=== PATIENT | male | born 1965 | race Caucasian/White ===

== ENCOUNTER → 2019-09-09 10:08 | Outpatient (CLI) | payer OTHER, SELFPAY ==
--- NOTE | 2019-09-09 10:13 | RAD_ITS ---
STUDY: X-RAY - RIGHT KNEE REASON FOR EXAM: Male, 54 years old. Pain, right more than left TECHNIQUE: 4 view(s) of the knee. COMPARISON: None. FINDINGS: Normal visualized distal femur. Normal visualized proximal tibia and fibula. Normal proximal tibiofibular articulation. Normal medial femorotibial compartment. Normal lateral femorotibial compartment. Normal patellofemoral articulation. The soft tissue structures are unremarkable. RAD/Knee 4 or More Views IMPRESSION: Normal x-ray examination of the knee. Electronically Signed: Ari Blackman MD at 10:35 EDT , Service support ,
--- NOTE | 2019-09-09 10:13 | RAD_ITS ---
STUDY: X-RAY - LEFT KNEE REASON FOR EXAM: Male, 54 years old. Pain, right more than left TECHNIQUE: 4 view(s) of the knee. COMPARISON: None. FINDINGS: Normal visualized distal femur. Normal visualized proximal tibia and fibula. Normal proximal tibiofibular articulation. Normal medial femorotibial compartment. Normal lateral femorotibial compartment. Normal patellofemoral articulation. The soft tissue structures are unremarkable. RAD/Knee 4 or More Views IMPRESSION: Normal x-ray examination of the knee. Electronically Signed: Ari Blackman MD at 10:31 EDT , Service support ,
== END ==
PROVIDERS: PCP Family Medicine; Referring Provider Family Medicine; Visit Provider Family Medicine
DX: M25.562 Pain in left knee (principal); M25.561 Pain in right knee
CPT/HCPCS: 73564

== ENCOUNTER → 2019-09-17 07:48 | Outpatient (CLI) | payer OTHER, SELFPAY ==
--- NOTE | 2019-09-17 07:50 | US_ITS ---
STUDY: THYROID ULTRASOUND REASON FOR EXAM: Male, 54 years old. Palpable nodule. TECHNIQUE: Ultrasound evaluation of the thyroid was performed with real-time and static cruz-scale imaging. COMPARISON: None. FINDINGS: RIGHT LOBE: The right lobe of the thyroid gland measures 4.7 x 1.8 x 2.1 cm. There is a homogeneous echotexture. There are no demonstrated solid, cystic or complex lesions. Normal vascularity on Doppler imaging. LEFT LOBE: The left lobe of the thyroid gland measures 4.7 x 2.1 x 2.1 cm. There is a homogeneous echotexture. There are no demonstrated solid, cystic or complex lesions. Normal vascularity on Doppler imaging. ISTHMUS: The isthmus measures 04 cm. The regional lymph nodes are normal. US/Thyroid IMPRESSION: Normal ultrasound examination of the thyroid. Electronically Signed: Luis Barakat DO at 16:55 EDT Tel [phone], Service support ,
== END ==
PROVIDERS: PCP Family Medicine; Referring Provider Family Medicine; Visit Provider Family Medicine
DX: E04.1 Nontoxic single thyroid nodule (principal)
CPT/HCPCS: 76536

== ENCOUNTER → 2019-11-17 10:51 | Outpatient (CLI) | payer OTHER, SELFPAY ==
[2019-11-17 10:40] VITALS: BMI 32.8
--- NOTE | 2019-11-17 11:07 | RAD_ITS ---
STUDY: X-RAY - RIGHT KNEE REASON FOR EXAM: Male, 54 years old. PAIN TECHNIQUE: 4 view(s) of the knee. COMPARISON: 09/09/2019 FINDINGS: Normal visualized distal femur. Normal visualized proximal tibia and fibula. Normal proximal tibiofibular articulation. Normal medial femorotibial compartment. Normal lateral femorotibial compartment. Normal patellofemoral articulation. The soft tissue structures are unremarkable. RAD/Knee 4 or More Views IMPRESSION: Normal x-ray examination of the knee. Electronically Signed: Jayson Marquez DO at 21:29 EDT Tel [phone], Service support ,
== END ==
PROVIDERS: PCP Family Medicine; Referring Provider Orthopaedic Surgery; Visit Provider Orthopaedic Surgery
DX: M25.561 Pain in right knee (principal)
CPT/HCPCS: 73564

== ENCOUNTER → 2020-07-26 12:11 | Outpatient (CLI) | payer OTHER, SELFPAY ==
[2020-07-26 11:01] VITALS: BMI 29.2
[2020-07-26 13:01] LABS: Hematocrit 43.6 % (40-54); Hemoglobin 14.1 g/dL (13.0-16.5); Mean Corp Hgb Conc 32.3 g/dL (32-36); Mean Corpuscular Hgb 29.7 pg (27.0-32.0); Mean Platelet Vol. 10.8 fl (6.2-12.0); Platelet Count 267 K/mm3 (150-450); Red Blood Count 4.74 M/mm3 (4.6-6.2); White Blood Count 4.5 K/mm3 (4.4-11.0)
[2020-07-26 14:29] LABS: ALB/GLOB Ratio 1.2 RATIO (0.9-2.4); AST(SGOT) 14 U/L (15-37); Alanine Aminotransfer ALT/SGPT 26 U/L (16-61); Albumin, Serum 4.2 g/dL (3.2-5.0); Alkaline Phosphatase 47 U/L (45-117); Anion Gap 7 (5-15); BUN 17 mg/dL (7-18); BUN/Creat Ratio 18.7 RATIO (10-20); Calcium,Total 9.3 mg/dL (8.5-10.1); Chloride 103 mmol/L (98-107); Creatinine, Serum 0.91 mg/dL (0.70-1.30); EST Glomerular Filtration Rate 92 mL/min (>60); Est Glom Filt Rate - Afr Amer 111 mL/min (>60); Globulin 3.6 g/dL (2.2-4.2); Glucose 82 mg/dL (74-106); Potassium 3.8 mmol/L (3.5-5.1); Protein, Total 7.8 g/dL (6.4-8.2); Sodium Level 137 mmol/L (136-145); Thyroid Stim Hormone (TSH) 1.28 uIU/mL (0.358-3.74)
== END ==
PROVIDERS: PCP Family Medicine; Referring Provider Psychiatry & Neurology Neurology; Visit Provider Psychiatry & Neurology Neurology
DX: G43.909 Migraine, unspecified, not intractable, without status migrainosus (principal)
CPT/HCPCS: 36415; 80053; 84443; 85027

== ENCOUNTER 2021-06-28 11:56 | Outpatient (CLI) | payer OTHER, SELFPAY ==
[2021-06-28 16:01] LABS: ALB/GLOB Ratio 1.3 RATIO (0.9-2.4); AST(SGOT) 22 U/L (15-37); Alanine Aminotransfer ALT/SGPT 40 U/L (16-61); Alkaline Phosphatase 48 U/L (45-117); Anion Gap 6 (5-15); BUN 19 mg/dL (7-18); BUN/Creat Ratio 22.2 RATIO (10-20); Chloride 102 mmol/L (98-107); Creatinine, Serum 0.85 mg/dL (0.70-1.30); EST Glomerular Filtration Rate 98 mL/min (>60); Est Glom Filt Rate - Afr Amer 119 mL/min (>60); Globulin 3.1 g/dL (2.2-4.2); Glucose 94 mg/dL (74-106); Potassium 4.2 mmol/L (3.5-5.1); Protein, Total 7.1 g/dL (6.4-8.2); Sodium Level 135 mmol/L (136-145)
== END 2021-06-28 23:59 | disposition home or self-care (01) ==
LOC: MFPLAB 11:59
PROVIDERS: PCP Family Medicine; Referring Provider Family Medicine; Visit Provider Family Medicine
DX: L29.9 Pruritus, unspecified (principal)
CPT/HCPCS: 36415; 80053

== ENCOUNTER → 2021-09-02 | Outpatient (CLI) | payer OTHER, SELFPAY ==
[2021-09-02 12:01] LABS: Absolute Lymphocyte Count 1.41 X10^3/uL (0.83-4.51); Absolute Neutrophil Count 1.9 X10^3/uL (2.0-7.7); Basophil# 0.02 X10^3/uL; Basophil% 0.5 % (0-1); Eosinophil# 0.29 X10^3/uL; Eosinophils% 7.1 % (0-5); Hematocrit 44.5 % (40-54); Hemoglobin 14.9 g/dL (13.0-16.5); Lymphocyte # 1.41 X10^3/ul (0.83-4.51); Lymphocyte % 34.7 % (19-41); Mean Corp Hgb Conc 33.5 g/dL (32-36); Mean Corpuscular Hgb 29.6 pg (27.0-32.0); Mean Corpuscular Volume 88.5 fL (80-94); Mean Platelet Vol. 10.7 fl (6.2-12.0); Monocyte# 0.43 X10^3/uL; Monocyte% 10.6 % (0-10); NRBC Flagged by Analyzer 0 % (0-5); Neutrophil % 46.9 % (47-70); Platelet Count 258 K/mm3 (150-450); RBC Distribution Width CV 12.9 % (11.6-14.6); Red Blood Count 5.03 M/mm3 (4.6-6.2); White Blood Count 4.1 K/mm3 (4.4-11.0)
[2021-09-02 12:47] LABS: ALB/GLOB Ratio 1.1 RATIO (0.9-2.4); AST(SGOT) 21 U/L (15-37); Alanine Aminotransfer ALT/SGPT 34 U/L (16-61); Albumin, Serum 3.9 g/dL (3.2-5.0); Alkaline Phosphatase 51 U/L (45-117); Anion Gap 5 (5-15); BUN 15 mg/dL (7-18); BUN/Creat Ratio 15.6 RATIO (10-20); Calcium,Total 8.7 mg/dL (8.5-10.1); Chloride 107 mmol/L (98-107); Cholesterol 226 mg/dL (200); Creatinine, Serum 0.96 mg/dL (0.70-1.30); EST Glomerular Filtration Rate 85 mL/min (>60); Est Glom Filt Rate - Afr Amer 103 mL/min (>60); Globulin 3.6 g/dL (2.2-4.2); Glucose 96 mg/dL (74-106); High Density Lipoprotein 44 mg/dL; PSA,Total - Annual Screen 0.48 ng/mL (0.00-4.00); Potassium 3.9 mmol/L (3.5-5.1); Protein, Total 7.5 g/dL (6.4-8.2); Sodium Level 139 mmol/L (136-145); Thyroid Stim Hormone (TSH) 1.27 uIU/mL (0.358-3.74); Triglycerides 134 mg/dL; Very Low Density Lipoprotein 27 mg/dL (5-40)
== END | disposition home or self-care (01) ==
LOC: MFPLAB 11:04
PROVIDERS: PCP Family Medicine; Referring Provider Family Medicine; Visit Provider Family Medicine
DX: Z00.00 Encounter for general adult medical examination without abnormal findings (principal); Z12.5 Encounter for screening for malignant neoplasm of prostate
CPT/HCPCS: 36415; 80053; 80061; 84153; 84443; 85025; G0103

== ENCOUNTER → 2021-09-16 | Outpatient (CLI) | payer OTHER, SELFPAY ==
--- NOTE | 2021-09-16 10:29 | RAD_ITS ---
EXAM: XR CERVICAL SPINE, 4 OR 5 VIEWS CLINICAL INDICATION: NECK PAIN TECHNIQUE: Frontal, lateral and bilateral oblique views of the cervical spine. This report was created using G3 report generation technology. COMPARISON: None. FINDINGS: VERTEBRAE: Unremarkable. Preserved vertebral body height. No acute fracture. No spondylolisthesis. Preservation of the normal cervical lordosis. No significant facet arthropathy. DISC SPACES: Anterior fusion plate at C6-7. Fusion cage at C6-7. SOFT TISSUES: Unremarkable. No prevertebral soft tissue widening. LUNG APICES: Clear. RAD/Cerv Spine 4 or 5 Views IMPRESSION: No acute findings in the cervical spine. Electronically Signed: Jt Dorsey MD at 14:13 EDT ,
== END | disposition home or self-care (01) ==
LOC: MTRAD 10:27
PROVIDERS: PCP Family Medicine; Referring Provider Family Medicine; Visit Provider Family Medicine
DX: M54.2 Cervicalgia (principal)
CPT/HCPCS: 72050

== ENCOUNTER 2022-06-14 12:30 | Outpatient (RCR) | payer OTHER, SELFPAY ==
--- NOTE | 2022-05-18 11:08 | HP.PTEVAL_ITS ---
Patient's Visit Information JAIDEN CHATTERJEE is a 57 year old M referred to Physical Therapy by AN EMMA with a diagnosis of RAYMUNDO. Date of Evaluation: 05/18/22 Physical Therapist: Alfonso Azar, DANNYT, OCS, CSCS - Visit Plan Frequency: 2x /Week Duration: 2-4 Weeks Plan: 2x/week for 4 weeks for. 1. STM gently to R subocc area, stretching of UT and scalenes and lev scap, MH. 2. c/s retraction , extension and rotation ROM and c12 mobs. 3. strenthening of posture and neck muscles to HEP - Subjective Neurologist sent over here. Had RAYMUNDO since 2013. H/O 2 neck surgeries and ear surgeries. Fused [id number]. This was due to RAYMUNDO, not neck pain. brain surgery for cyst and shunt in 2000. RAYMUNDO went away before 2014 thought. has tried meds and botox for RAYMUNDO. Had MRI, MRA and other tests. Sent to [facility] to check shunt and was leaking spinal fluid, adjusted and sent to this neurologist. Found out neck was tight. Wanted therapy. Has seen chiropractic in past and had neck cracked which hurt. Had PT in the past. Doctor wants to loosen up neck and try to manage RAYMUNDO. Will have injections this week also. Neck feels tight but no painful, maybe tender center R in neck. RAYMUNDO are L occipital throbbing started in 2013 and nobody has been able to tell him why. RAYMUNDO is always low level there but worse for no apparent reason, sometimes in morning. Gets dizzy if stands or sits up too quick. Sometimes when he rolls over he gets dizzy. Bending can cause it quickly. Sleep is OK melatonin. Not employed, not due to this RAYMUNDO. Spends day remodelling parts of the house. House projects and 6 acres, none of that makes him worse. Sitting down feels the throbbing more. Does alot of stretching ex and some cardio on treadclimber and rowing machine. LE stretches. - Pain RAYMUNDO Pain Intensity (Out of 10): 1 Pain Intensity Range: 1, 7 - Objective Walks I and safe easily into and out of PT. Trasnfers no UE I. Good balance. cervical AROM ext 35 degrees, flexion tightness on R, retraction mod limited, SB are full but R side feels tights with stretching, rotation are 50 B without pain or tightness. Just slight tenderness R side under ext occipital protuberance, shunt palpable, not tender. UE aROM WFL, scapular, elbow, shoulder and wrist aROM symmetrical and fucntional. reflexes UE bi and tri 2/3 B. Sensation WNL to gross light touch in UE. Strength UE symmetircal and funcitonal in all UE testing without pain. - c/s compression test. tightness in lev scap and UT R >L, scalenes minimally. - Balance/Special Test Scores Oswestry Neck Score: 5 - Goals Goal 1:: No tightness felt in neck with SB or flexion Goal Time Frame: 2-4 Weeks Goal 2:: RAYMUNDO improved to 3/10 at worst and intermittent Goal Time Frame: 2-4 Weeks Goal 3:: patient I in management of condition with home neck stretches and strengtheniing Goal Time Frame: 2-4 Weeks - Rehabilitation Potential Physical Therapy Diagnosis: some mild tightness in neck questionable whether contributing to RAYMUNDO Rehabilitation Potential: Questionable - Anticipated Interventions Patient/Client Instruction: Educate patient on: Condition, Plan of Care For the Purpose of:: To decrease pain, To increase ROM, To improve muscle performance and motor function Therapeutic Exercise to Include: Strength training, Flexibilty training, Passive ROM, Active ROM, Scapular Strength/Stabilization For the Purpose of:: To decrease pain, To increase ROM, To improve nutrient delivery to tissue, To improve muscle performance and motor function Manual Therapy Techniques to Include: Soft tissue mobilization For the Purpose of:: To improve nutrient delivery to tissue Thermo therapy (hot pack): Yes For the Purpose of:: To improve nutrient delivery to tissue Thank you for the opportunity to evaluate your patient. For Medicare and Medicare HMO plans, please review the plan of care and approve it. It will need to be FAXED BACK to us at [phone] for Medicare purposes. For Medicare only, by signing this I certify the plan of care. Please let me know if there are questions or concerns regarding this plan of care. Physician Signature: Date:
--- NOTE | 2022-06-14 13:10 | HP.PTDCSUM ---
It has been my pleasure to treat JAIDEN CHATTERJEE referred by JOSIANE CARTER, with the diagnosis of RAYMUNDO for a total of 5 visit(s). Discharge Date: 06/14/22 Please see the following information for a summary of their discharge status. Subjective: No more knot in L UT. Stiffness in neck is better, minor tenderness where knot used to be. RAYMUNDO no change. Started ingality injedctions yesterday and a month ago, they really help. Activities are normal. Does stretching and strengthening at home regularly. RAYMUNDO Pain Intensity (Out of 10): 0 % Improvement: 100 Objective/Function: 60 B rotations with contralateral stretch, SB symmetrical and slight stretch contralateral. 40 ext without problems. Feeling good and ready to be done. Goal 1:: No tightness felt in neck with SB or flexion Goal Progress: Progressing Goal 2:: RAYMUNDO improved to 3/10 at worst and intermittent Goal Progress: Not Progressing Goal 3:: patient I in management of condition with home neck stretches and strengtheniing Goal Progress: Goal Met Plan: d/c Discharge Comments: Pt feeling better and will continue with HEP. If there are questions or concerns regarding this patient's physical therapy, please feel free to call me at [phone]. Thank you for the referral of this patient. Sincerely, Alfonso Azar, DPT, OCS, CSCS Balance/Gait/Functional tests - Balance/Special Test Scores Oswestry Neck Score: 6
== END 2022-06-14 19:00 | disposition home or self-care (01) ==
LOC: PT 12:30
PROVIDERS: PCP Family Medicine
DX: G43.719 Chronic migraine without aura, intractable, without status migrainosus (principal); M53.0 Cervicocranial syndrome
CPT/HCPCS: 97110; 97140; 97161

== ENCOUNTER → 2022-11-10 | Outpatient (CLI) | payer OTHER, SELFPAY ==
[2022-11-10 12:06] LABS: Bacteria 0 SEEN /hpf (None Seen); Mucous, Urine 0 SEEN /hpf (<or=2+); Red Blood Cells-Urine 0 SEEN /hpf (0-5); Squamous Epithelial Cells - UA 0 SEEN /hpf (0-5); White Blood Cells 0 SEEN /hpf (0-5)
[2022-11-10 15:19] LABS: Absolute Neutrophil Count 2.1 X10^3/uL (2.0-7.7); Basophil# 0.02 X10^3/uL; Basophil% 0.4 % (0-1); Eosinophils% 8.7 % (0-5); Hematocrit 46.2 % (40-54); Lymphocyte % 34.9 % (19-41); Mean Corp Hgb Conc 32.5 g/dL (32-36); Mean Corpuscular Hgb 29.5 pg (27.0-32.0); Mean Corpuscular Volume 90.8 fL (80-94); Mean Platelet Vol. 11.1 fl (6.2-12.0); Monocyte# 0.48 X10^3/uL; Monocyte% 10.5 % (0-10); NRBC Flagged by Analyzer 0 % (0-5); Neutrophil # 2.08 X10^3/uL (2.7-7.7); Neutrophil % 45.3 % (47-70); Platelet Count 220 K/mm3 (150-450); RBC Distribution Width CV 12.8 % (11.6-14.6); RBC Distribution Width SD 41.9 fl (35.1-43.9); Red Blood Count 5.09 M/mm3 (4.6-6.2); White Blood Count 4.6 K/mm3 (4.4-11.0)
[2022-11-10 15:21] LABS: Color, Urine Yellow (Yellow); Glucose, Dipstick Normal (Normal); Ketone-Dipstick Negative (Negative); Leukocyte Esterase-Dipstick Negative /ul (Negative); Nitrite-Dipstick Negative (Negative); Occult Blood-Urine 10 /ul (Negative); Protein-Dipstick Negative (Negative); Urine Bilirubin Dipstick Negative (Negative); Urine Clarity Clear (Clear); Urine Urobilinogen Normal (Normal)
[2022-11-10 15:57] LABS: AST(SGOT) 17 U/L (15-37); Alanine Aminotransfer ALT/SGPT 32 U/L (16-61); Albumin, Serum 3.8 g/dL (3.2-5.0); Alkaline Phosphatase 46 U/L (45-117); Anion Gap 5 (5-15); BUN 19 mg/dL (7-18); Calcium,Total 8.6 mg/dL (8.5-10.1); Chloride 105 mmol/L (98-107); Cholesterol 221 mg/dL (200); Creatinine, Serum 0.95 mg/dL (0.70-1.30); EST Glomerular Filtration Rate 86 mL/min (>60); Est Glom Filt Rate - Afr Amer 104 mL/min (>60); Globulin 3.7 g/dL (2.2-4.2); Glucose 87 mg/dL (74-106); High Density Lipoprotein 50 mg/dL; PSA,Total - Annual Screen 0.49 ng/mL (0.00-4.00); Potassium 4.4 mmol/L (3.5-5.1); Protein, Total 7.5 g/dL (6.4-8.2); Sodium Level 136 mmol/L (136-145); Thyroid Stim Hormone (TSH) 1.43 uIU/mL (0.358-3.74); Triglycerides 115 mg/dL; Very Low Density Lipoprotein 23 mg/dL (5-40)
== END | disposition home or self-care (01) ==
LOC: MFPLAB 12:05
PROVIDERS: PCP Family Medicine; Visit Provider Family Medicine
DX: Z00.00 Encounter for general adult medical examination without abnormal findings (principal); Z12.5 Encounter for screening for malignant neoplasm of prostate
CPT/HCPCS: 36415; 80053; 80061; 81001; 84153; 84443; 85025; G0103

== ENCOUNTER → 2022-12-15 | Outpatient (CLI) | payer OTHER, SELFPAY ==
--- NOTE | 2022-12-15 14:40 | RAD_ITS ---
INDICATION: HIP PAIN EXAMINATION/TECHNIQUE: X-RAY - XR Hips Bilateral with Pelvis when performed; 5 Views COMPARISON: FINDINGS: PELVIC BONES: No displaced fracture, destructive or sclerotic lesions. Note that overlapping bowel shadows may however obscure fine detail. Sacroiliac joints are unremarkable. No widening of the pubic symphysis. HIPS: The articular structures are unremarkable. No displaced fracture seen in this frontal view. SOFT TISSUES: No soft tissue swelling or gas. RAD/Hips B/L min 2 views w/ Pelvis IMPRESSION: No evidence of displaced pelvic or hip fracture. Electronically Signed: Jayson Marquez DO at 20:53 EDT Reading Location ID and State: [facility] / [place] Tel [phone], Service support ,
== END | disposition home or self-care (01) ==
LOC: MTRAD 14:37
PROVIDERS: PCP Family Medicine; Referring Provider Family Medicine; Visit Provider Family Medicine
DX: M25.559 Pain in unspecified hip (principal)
CPT/HCPCS: 73521

== ENCOUNTER 2023-01-02 07:42 | Day surgery (SDC) | payer OTHER, SELFPAY ==
[2023-01-02] VITALS (7 sets, daily range): BP systolic 108–124; BP diastolic 66–78; PULSE 54–61; RESP 16–18; TEMP 36.1–36.6; O2SAT 95–99; BMI 30.3
[2023-01-02] MEDS: Lactated Ringers 1,000 ML 15 ML IV (08:19)
--- NOTE | 2023-01-02 08:44 | HP.PCM_ITS ---
HPI - General HPI Narrative JAIDEN CHATTERJEE, is a 57 M who presents for screening colonoscopy. The patient's last colonoscopy was 5 years ago and it was normal. The patient has a family history of colon cancer in his father in his 50s. Patient also has a family history of colon polyps in his brother. He denies any abdominal pain or blood in his stool. [facility] Medical History (Updated 01/02/23 @ 08:[address] Maciej Zhang MD) Cyst on brain shunt cyst on ear Family hx of colon cancer Former smoker h/o reattachment finger h/o right knee meniscus surgery Home Medications melatonin 3 mg capsule 3 mg PO HS PRN sleep 07/21/20 [History Last Taken Unknown] atogepant 30 mg tablet (Qulipta) 30 mg PO DAILY 11/23/22 [History Last Taken Unknown] magnesium oxide 400 mg (241.3 mg magnesium) tablet 400 mg PO DAILY 11/23/22 [History Last Taken Unknown] mecobalamin (vitamin B12) 1,000 mcg chewable tablet 1,000 mcg PO DAILY 11/23/22 [History Last Taken Unknown] Allergy/AdvReac Type Severity Reaction Status Date / Time Latex, Natural Rubber Allergy Burning Verified 01/02/23 08:10 Sensation Family History (Updated 11/23/22 @ 16:31 by Hilda Marrero) Father Colon cancer, Onset Age: 50 at 50 Mother Hypertension Brother Colon polyp Surgical History (Updated 12/27/22 @ 14:07 by Dayna Sosa) H/O removal of neck cyst History of back surgery History of brain surgery History of neck surgery Hx of colonoscopy 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 Social History household members: spouse Smoking Status: Former smoker Tobacco: How many years used: 25 Electronic Cigarette Use: not used how long ago did patient quit smokin years second hand exposure: No alcohol intake: never substance use type: does not use what type of physical activity do you participate in: none do you feel safe at home: Yes Past Medical/Surgical History Planned Operation Planned Operative Procedure/s: CSCOPE Previous Hospitalizations/Surgeries HX Hospitalizations: No Any Problems With Anesthesia: No You/Your Family Experience Fever (Hyperthermia) With Anes: No Cholinesterase deficiency: No Cardiovascular Hx Hypertension: No Respiratory Hx Sleep Apnea: No Hx Respiratory Tract Infection/Cold (presently): No Do You Snore Loudly (louder than talking or can be heard): No Do You Often Feel Tired/ Fatigued/ Sleepy Dring Daytime?: No Has Anyone Observed You Stop Breathing During Sleep?: No Result (for STOP score): Negative Smoking Status: Former smoker Neurological Does patient have nerve stimulator: No Miscellaneous Recent Exposure to Contagious Disease: No Allergies Latex, Natural Rubber Allergy (Verified 01/02/23 08:10) Burning Sensation Discharge Is Pt Admitted From a Long-Term, or a Custodial: No After D/C, Where Do you Plan to Go: Return Home Vital Signs Vital Signs Vital Signs: 01/02/23 08:11 01/02/23 08:11 Temperature 97.8 F Temperature Source Temporal Pulse Rate 61 Respiratory Rate 18 Respiratory Pattern Normal Blood Pressure 124/73 H Blood Pressure Mean 90 Blood Pressure Source Monitor Blood Pressure Position Supine Blood Pressure Location Left Arm Pulse Ox 99 Oxygen Delivery Method Room Air Weight Weight: 205 lb 7.533 oz Body Mass Index (BMI) 30.3 Physical Exam Const alert and oriented x3 HEENT normocephalic Eyes PERRL Resp normal respiratory effort and normal air movement Cardio regular rate and regular rhythm GI soft to palpation, non-tender and non-distended Extremity normal to inspection Assessment & Plan Assessment/Plan (1) Family history of malignant neoplasm of colon in first degree relative diagnosed when younger than 60 years of age: PLAN: I explained endoscopy in detail to the patient. I explained the risks including but not limited to stroke or heart attack with anesthesia, perforation of the GI tract, bleeding, infection. I explained that any of these could necessitate further emergency surgery. The patient understands and all questions were answered sufficiently. The patient wishes to proceed with procedure. Maciej Zhang MD Pager: [facility] [address] [place] [address], [address] [place] [address] Office: Surgery Risks - Colonoscopy Risks Include but are not Limited To: Risks include but are not limited to: Bleeding, perforation requiring further surgery, inability to complete colonoscopy requiring barium enema.
--- NOTE | 2023-01-02 09:25 | OP.CCLET_ITS ---
01/02/2023 Adriel Potts [address] [place] [address] Re : Colonoscopy procedure for Armando Mario Dear Dr. Potts This procedure was performed on Monday, January 02, 2023. My impressions and recommendations are as follows: Impressions : - The entire examined colon is normal on direct and retroflexion views. - No specimens collected. Recommendations : - Discharge patient to home. - Resume previous diet. - Continue present medications. - Repeat colonoscopy in 5 years for surveillance. My findings are described in the full procedure note, which is enclosed. If I can be of further assistance, please feel free to contact me at Doctor phone number(s): , Work: . Sincerely, Maciej Zhang MD 01/02/2023 9:25:11 AM This report has been signed electronically.
--- NOTE | 2023-01-02 09:25 | OP.COLON_ITS ---
Patient Name: Armando Martin Procedure Date: 01/02/2023 8:50 AM Date of : 1965 Age: 57 Procedure: Colonoscopy Indications: Screening in patient at increased risk: Colorectal cancer in father before age 60 Providers: Maciej Zhang MD Medicines: Monitored Anesthesia Care Patient Profile: This is a 57 year old male. Refer to note in patient chart for documentation of history and physical. Last Colonoscopy: 5 years ago. Complications: No immediate complications. Procedure: Pre-Anesthesia Assessment: - Prior to the procedure, a History and Physical was performed, and patient medications and allergies were reviewed. The patient's tolerance of previous anesthesia was also reviewed. The risks and benefits of the procedure and the sedation options and risks were discussed with the patient. All questions were answered, and informed consent was obtained. Prior Anticoagulants: The patient has taken no anticoagulant or antiplatelet agents. ASA Grade Assessment: I - A normal, healthy patient. After reviewing the risks and benefits, the patient was deemed in satisfactory condition to undergo the procedure. After I obtained informed consent, the scope was passed under direct vision. Throughout the procedure, the patient's blood pressure, pulse, and oxygen saturations were monitored continuously. The colonoscope was introduced through the anus and advanced to the ileocecal valve. The colonoscopy was performed without difficulty. The patient tolerated the procedure well. The quality of the bowel preparation was good. The ileocecal valve, appendiceal orifice, and rectum were photographed. Scope In: 8:57:26 AM Scope Withdrawal Time 0 hours 5 minutes 32 seconds Scope Out: 9:10:50 AM Total Procedure Duration Time 0 hours 13 minutes 24 seconds Findings: The entire examined colon appeared normal on direct and retroflexion views. Impression: - The entire examined colon is normal on direct and retroflexion views. - No specimens collected. Recommendation: - Discharge patient to home. - Resume previous diet. - Continue present medications. - Repeat colonoscopy in 5 years for surveillance. Procedure Code(s): --- Professional --- 38085, Colonoscopy, flexible; diagnostic, including collection of specimen(s) by brushing or washing, when performed (separate procedure) Diagnosis Code(s): --- Professional --- Z80.0, Family history of malignant neoplasm of digestive organs CPT copyright 2021 [employer]. All rights reserved. The codes documented in this report are preliminary and upon human services case manager review may be revised to meet current compliance requirements. Maciej Zhang MD 01/02/2023 9:25:11 AM This report has been signed electronically. Number of Addenda: 0 Note Initiated On: 01/02/2023 8:50 AM
== END 2023-01-02 09:50 | disposition home or self-care (01) ==
LOC: EN 07:43 → AC 07:44
PROVIDERS: PCP Family Medicine; Referring Provider Family Medicine; Visit Provider Surgery
PROC: 0DJD8ZZ Inspection of Lower Intestinal Tract, Via Natural or Artificial Opening Endoscopic (ICD-10-PCS; CPT 45378; principal; 2023-01-02 08:40)
DX: Z12.11 Encounter for screening for malignant neoplasm of colon (principal); Z80.0 Family history of malignant neoplasm of digestive organs; Z87.891 Personal history of nicotine dependence
CPT/HCPCS: 45378; J7120; J2405

== ENCOUNTER → 2023-05-16 | Outpatient (CLI) | payer OTHER, SELFPAY ==
--- NOTE | 2023-05-16 09:55 | RAD_ITS ---
STUDY: X-RAY - ESOPHAGUS (BARIUM SWALLOW) WITH FLUOROSCOPY REASON FOR EXAM: Male, 58 years old. Globus sensation TECHNIQUE: 15 view(s) of the esophagus were obtained following swallowing of barium. FLUOROSCOPY TIME (if supplied): (24 seconds) minutes/seconds. 27.78 mGy COMPARISON: None. FINDINGS: There is no demonstrated esophageal foreign body. There is no demonstrated stricture or mucosal abnormality. Normal gastroesophageal junction, without a demonstrated hiatal hernia. The patient ingested a 12 mm tablet of barium without any difficulty. Normal visualized aortic arch and descending thoracic aorta. Normal visualized pulmonary parenchyma. There are diffuse degenerative changes of the visualized thoracic spine. RAD/Esophagus Dual Contrast IMPRESSION: Normal plain film x-ray examination (barium swallow) of the esophagus. Electronically Signed: Alec Romano MD at 15:26 EST ,
== END | disposition home or self-care (01) ==
PROVIDERS: PCP Family Medicine; Referring Provider Family Medicine; Visit Provider Family Medicine
DX: R09.A2 Foreign body sensation, throat (principal)
CPT/HCPCS: 74221

== ENCOUNTER → 2023-11-14 | Outpatient (CLI) | payer OTHER, SELFPAY ==
[2023-11-14 15:47] LABS: PSA,Total - Annual Screen 0.54 ng/mL (0.00-4.00)
== END | disposition home or self-care (01) ==
LOC: MFPLAB 11:04
PROVIDERS: PCP Family Medicine; Visit Provider Family Medicine
DX: Z12.5 Encounter for screening for malignant neoplasm of prostate (principal)
CPT/HCPCS: 36415; 84153; G0103

== ENCOUNTER 2024-01-11 13:12 | Emergency (ER) | payer OTHER, SELFPAY ==
[2024-01-11 13:13] VITALS: BP 170/90; PULSE 74; RESP 18; TEMP 36.2; O2SAT 100; BMI 34.3
[2024-01-11] MEDS: Ketorolac 15 MG/ML Vial IV (13:37)
--- NOTE | 2024-01-11 13:58 | CT_ITS ---
INDICATION: Kidney Stone EXAMINATION: CT ABDOMEN AND PELVIS WITHOUT CONTRAST - CT Abdomen And Pelvis W/O Contrast Injection TECHNIQUE: Helically acquired images were obtained of the abdomen and pelvis without oral or IV contrast. The protocol utilizes one or more of the following dose reduction techniques: automated exposure control, adjustment of mA and/or kV according to patient size,and/or use of iterative reconstruction technique. IV Contrast dosage and agent: None. Oral contrast: None. RADIATION DOSAGE (If Supplied By Facility): CTDIvol = ( 17.14 ) mGy, DLP = ( 1103.67 ) mGycm COMPARISON: No relevant prior comparison study available FINDINGS: LOWER CHEST: Lung bases are clear. No cardiomegaly or pericardial effusion. LIVER: Homogeneous. No focal mass. GALLBLADDER AND BILIARY TREE: No calcified gallstones. No gallbladder distension or wall edema. No intra- or extrahepatic biliary ductal dilation. PANCREAS: No focal cystic or solid mass. SPLEEN: Normal size without focal cystic or solid mass. ADRENAL GLANDS: No nodules. KIDNEYS AND URETERS: Normal renal size and position. [Small less than 1 mm nonobstructing stone in the left kidney. No evidence of ureteral stone. No evidence of hydronephrosis. PERITONEUM: No ascites or free air. No other fluid collection. BOWEL: No evidence of acute appendicitis. No stomach or bowel distension. Fecal retention. No evidence of acute diverticulitis. LYMPH NODES: No enlarged mesenteric or retroperitoneal lymph nodes. VESSELS: Aorta is non-dilated. URINARY BLADDER: Unremarkable. REPRODUCTIVE ORGANS: No pelvic masses. ABDOMINAL WALL: Bilateral inguinal hernias containing fat larger on the left side. Small umbilical hernia containing fat. BONES: Mild degenerative changes of the spine. Unilateral right spondylolysis at L5. CT/Abdomen/Pelvis without Cont IMPRESSION: 1. Very small nonobstructing stone in the left kidney without evidence of hydronephrosis. 2. No focal acute inflammatory process. 3. Bilateral inguinal hernias and umbilical hernia containing fat. Electronically Signed: Hans Farias MD at 14:48 EDT ,
[2024-01-11 13:59] LABS: Absolute Lymphocyte Count 1.36 X10^3/uL (0.83-4.51); Absolute Neutrophil Count 3.1 X10^3/uL (2.0-7.7); Basophil# 0.03 X10^3/uL; Basophil% 0.6 % (0-1); Eosinophil# 0.34 X10^3/uL; Eosinophils% 6.3 % (0-5); Hematocrit 44.6 % (40-54); Hemoglobin 14.9 g/dL (13.0-16.5); Lymphocyte # 1.36 X10^3/ul (0.83-4.51); Lymphocyte % 25.2 % (19-41); Mean Corp Hgb Conc 33.4 g/dL (32-36); Mean Corpuscular Hgb 28.5 pg (27.0-32.0); Mean Corpuscular Volume 85.4 fL (80-94); Monocyte# 0.52 X10^3/uL; Monocyte% 9.6 % (0-10); NRBC Flagged by Analyzer 0 % (0-5); Neutrophil # 3.14 X10^3/uL (2.7-7.7); Neutrophil % 58.1 % (47-70); Platelet Count 252 K/mm3 (150-450); RBC Distribution Width CV 13.2 % (11.6-14.6); RBC Distribution Width SD 41.1 fl (35.1-43.9); Red Blood Count 5.22 M/mm3 (4.6-6.2); White Blood Count 5.4 K/mm3 (4.4-11.0)
[2024-01-11] MEDS: Ondansetron 4 MG/2 ML Vial IV (14:00)
[2024-01-11] MEDS: Morphine 4 MG/ML Syringe IV ×2 (14:01→15:12)
--- OUTSIDE RECORDS SUMMARY | 2024-01-11 14:05 | XMS RPT_ITS | CCD ---
Author Organization [facility] Care Team Providers Care Stores Despatch Hand Name Role Phone Asbridge, Eryn Unavailable Unavailable Asbridge, Eryn Unavailable Unavailable No Doctor Assigned, Nodr Unavailable Unavail able WILLIAM BANG Unavailable Unavailable WILLIAM BANG Unavailable Unavailable TIMPONE, ENRICO Unavailable Unavailable BOUZ, PETER A Unavailable Unavailable TIMPONE, ENRICO Unavailable Unavailable BOUZ, PETER A Unavailable Unavailable TIMPONE, ENRICO Unavailable Unavailable BOUZ, PETER A Unavailable Unavailable BOUZ, PETER A Unavailable Unavailable TIMPONE, ENRICO Unavailable Unavailable TIMPONE, ENRICO Unavailable Unavailable BOUZ, PETER A Unavailable Unavailable BOUZ, PETER A Unavailable Unavailable TIMPONE, ENRICO Unavailable Unavailable SVETIC, ANTONELA Unavailable Unavailable SVETIC, ANTONELA Unavailable Unavailable TIMPONE, ENRICO Unavailable Unavailable SVETIC, ANTONELA Unavailable Unavailable SVETIC, ANTONELA Unavailable Unavailable TIMPONE, ENRICO Unavailable Unavailable TIMPONE, ENRICO Unavailable Unavailable EMILY SENA H Unavailable Unavailable GUSTAVO AKBAR (PA-C) Unavailable Unavaila Simi Kern MD Primary Care Provider [phone] Simi Potts MD Primary Care Provider [phone] SIMI POTTS Referring Unavailable SIMI POTTS Primary Care Unavailable CHRISTINE JARQUIN Attending Unavailable SIMI POTTS Primary Care Unavailable GERSON MABRY Referring Unavailable GERSON MABRY Attending Unavailable SIMI POTTS Primary Care Unavailable ADE US Referring Unavailable ABEBA, ADE Attending Unavailable SIMI POTTS Primary Care Unavailable ABEBA, ADE Referring Unavailable ABEBA, ADE Attending Unavailable SIMI POTTS Primary Care Unavailable ABEBA, ADE Attending Unavailable ABEBA, ADE Referring Unavailable SIMI POTTS Primary Care Unavailable ABEBA, ADE Attending Unavailable CHRISTINE JARQUIN Referring Unavailable SIMI POTTS Primary Care Unavailable MARTHA CRAIN Referring Unavailable EMMA, JOSIANE E Attending Unavailable SIMI POTTS Primary Care Unavailable MARTHA CRAIN Referring Unavailable MARTHA CRAIN Attending Unavailable SIMI MCWILLIAMS Referring Unavailable SIMI POTTS Primary Care Unavailable MARTHA CRAIN Attending Unavailable MARTHA CRAIN Attending Unavailable SIMI POTTS Primary Care Unavailable SELF, SELF Referring Unavailable HUMAIRA SHAQUILLE Francois Attending Unavailable SIMI POTTS Primary Care Unavailable CHRISTINE JARQUIN Referring Unavailable CHRISTINE JARQUIN Attending Unavailable SIMI POTTS Primary Care Unavailable SIMI POTST Referring Unavailable SIMI POTTS Primary Care Unavailable MARTHA CRAIN Attending Unavailable SELF, SELF Referring Unavailable SIMI MCWILLIAMS M Referring Unavailable SIMI MCWILLIAMS Attending Unavailable NEW, SIMI Primary Care Unavailable NEW, SIMI Referring Unavailable NEW, SIMI Primary Care Unavailable CHRISTINE JARQUIN Attending Unavailable SIMI MCWILLIAMS Referring Unavailable POPPYSIMI GARNER Attending Unavailable SIMI POTTS Primary Care Unavailable SIMI MCWILLIAMS Attending Unavailable SIMI POTTS Primary Care Unavailable SELF, SELF Referring Unavailable Simi Potts MD Primary Care Provider LOUIS CARRILLO Attending Unavailable LOUIS CARRILLO Referring Unavailable SIMI POTTS Primary Care Unavailabl e Allergies Allergy Classification Reported Allergen(s) Allergy Type Date of Onset Reaction(s) Facility (19 sources) Latex; Translations: [Latex] Propensity to adverse reactions to drug (disorder) 6 [facility] Repository (1 source) Shellfish; Translations: [SHELLFISH DERIVED] Propensity to adverse reactions to drug (disorder) 7 [facility] Repository (3 sources) natural latex rubber; Translations: [LATEX, NATURAL RUBBER] Propensity to adverse reactions to drug (disorder) 6 Other [facility] Other [place] Repository Medications Current Medications Medication Drug Class(es) Dates Sig (Normalized) Sig (Original) biotin 5 mg oral capsule (1 source) take 1 capsule by mouth once daily biotin 5 mg capsule Take 1 capsule (5 mg) by mouth once daily. Active cetirizine hydrochloride 10 mg oral tablet (1 source) Histamine-1 Receptor Antagonist Start: 02-28-2023 take 1 tablet by mouth in the morning cetirizine (ZyrTEC) 10 mg tablet Take 1 tablet (10 mg) by mouth early in the morning.. 02/28/2023 Active 1 ml galcanezumab-gnlm 120 mg/ml auto-injector (3 sources) Start: 06-08-2022 Galcanezumab-gnlm (Emgality) 120 MG/ML Solution Auto-injector Inject one pen (120 mg) under the skin every 30 days. 1 mL 06/08/2022 Active Start: 06-08-2022 inject 120 mg by sub cutaneous injection every 30 days Galcanezumab-gnlm (Emgality) 120 MG/ML Solution Auto-injector Inject 120 mg under the skin every 30 days. 1 mL 06/08/2022 Active Start: 05-11-2022 End: 05-11-2022 inject 240 mg by subcutaneous injection once Galcanezumab-gnlm (Emgality) 120 MG/ML Solution Auto-injector Inject 240 mg under the skin once for 1 dose. 2 mL 0 05/11/2022 Active magnesium amino acid chelate 133 mg oral tablet (1 source) take 1 tablet by juan f th twice daily magnesium, amino acid chelate, 133 mg tablet Take 1 tablet (133 mg) by mouth 2 times a day. Active magnesium oxide 400 mg oral tablet (12 sources) take 0.5 tablet by m outh twice daily magnesium oxide 400 MG tablet Take 0.5 tablets by mouth 2 times daily. Active magnesium oxide 400 MG tablet Take 200 mg by mouth 2 times daily. 0 Active melatonin 5 mg oral capsule (18 sources) melatonin 5 mg c apsule Take by mouth. Active take 1 tablet by mouth at bedtim e melatonin 3 MG tablet Take 1 tablet by mouth at bedtime. Active NON FORMULARY (1 source) NON FORMULARY Da ozzie fruit and vegetable supplement Active pantoprazole 40 mg delayed release oral tablet (1 source) Proton Pump Inhibitor Start: 12-13-19 24 End: 12-13-19 25 take 1 tablet by mouth once daily pantoprazole (ProtoNix) 40 mg EC tablet Indications: Gastroesophageal reflux disease with esophagitis without hemorrhage Take 1 tablet (40 mg) by mouth once daily. Do not crush, chew, or split. 30 tablet 5 12/13/2023 12/12/2024 Active Qulipta 60 mg tablet tablet (1 source) Start: 11-27-19 take 1 tablet by mouth in the morning Qulipta 60 mg tablet tablet Take 1 tablet (60 mg) by mouth early in the morning.. 11/27/2023 Active rimegepant 75 mg disintegrating oral tablet (6 sources) Start: 11-09-19 End: 10-10-19 Nurtec ODT 75 mg tablet,disintegrating Take 1 tablet by mouth at the onset of migraine. Take no more than 1 tablet per day. 09/29/2023 Active rizatriptan 10 mg oral tablet (3 sources) Serotonin-1b and Serotonin-1d Receptor Agonist Start: 05-11-19 End: 05-11-19 take 1 tablet by mouth every two hours rizatriptan 10 MG tablet Take 1 tablet by mouth As directed. May repeat in 2 hours if needed, max daily dose 30 mg 12 tablet 11 05/11/2022 Active vitamin b12 0.1 mg oral tablet (12 sources) Vitamin B12 take 1 tablet by mouth once daily cyanocobalamin 100 MCG tablet Take 1 tablet by mouth daily. Active Completed/Discontinued Medications Medication Drug Class(es) Dates Sig (Normalized) Sig (Original) Atogepant (Qulipta) 30 MG tablet (5 sources) Start: 08-07-2022 End: 11-08-2022 take 1 tablet by mouth once daily Atogepant (Qulipta) 30 MG tablet Take 30 mg by mouth daily. 30 tablet 11 08/07/2022 11/08/2022 Discontinued (Dose adjustment (suppress cancel msg)) Start: 08-07-2022 take 1 tablet by juan f th once daily Atogepant (Qulipta) 30 MG tablet Take 30 mg by mouth daily. 30 tablet 11 08/07/2022 Active Atogepant (Qulipta) 60 MG tablet (4 sources) Start: 07-04-2023 End: 10-10-2023 take 1 tablet by mouth once daily Atogepant (Qulipta) 60 MG tablet Take 60 mg by mouth daily. 30 tablet 2 07/04/2023 10/10/2023 Discontinued (Medication Reconciliation (suppress cancel msg)) Start: 01-08-2023 take 1 tablet by juan f th once daily Atogepant (Qulipta) 60 MG tablet Take 60 mg by mouth daily. 30 tablet 11 01/08/2023 Active Start: 11-08-2022 End: 01-08-2023 take 1 tablet by mouth once daily Atogepant (Qulipta) 60 MG tablet Take 60 mg by mouth daily. 30 tablet 11 11/08/2022 01/08/2023 Discontinued (Reorder) Start: 11-08-2022 take 1 tablet by juan f th once daily Atogepant (Qulipta) 60 MG tablet Take 60 mg by mouth daily. 30 tablet 11 11/08/2022 Active B complex-vitamin C-folic acid (Nephro-Erich Rx) 1-60-300 mg-mg-mcg tablet (1 source) End: 01-07-2024 take 1 tablet by mouth once daily at breakfast B complex-vitamin C-folic acid (Nephro-Erich Rx) 1-60-300 mg-mg-mcg tablet Take 1 tablet by mouth once daily with breakfast. 01/07/2024 Discontinued (Med List Cleanup) benzocaine 140 mg/ml / butamben 20 mg/ml / tetracaine 20 mg/ml mucosal spray (1 source) Yenifer Local Anesthetic, Standardized Chemical Allergen Start: 01-08-2024 End: 01-08-2024 Topical, As needed, Starting on Sun01/08/24 at 0957, Intraprocedure 1 ml fentaNYL 0.05 mg/ml injection (1 source) Opioid Agonist Start: 01-08-2024 End: 01-08-2024 intravenous, As needed, Starting on Sun01/08/24 at 0959, Intraprocedure gadoterate Meglumine (DOTAREM) 5 MMOL/10ML injection 3-60 mL (2 sources) Start: 10-16-2022 End: 10-16-2022 gadoterate Meglumine (DOTAREM) 5 MMOL/10ML injection 3-60 mL Start: 03-29-2022 End: 03-29-2022 gadoterate Meglumine (DOTARE M) 5 MMOL/10ML injection 3-60 mL iohexol (OMNIPAQUE) 350 MG/ML injection 1-171 mL (1 source) Start: 10-13-2022 End: 10-13-2022 iohexol (OMNIPAQUE) 350 MG/ML injection 1-171 mL 2 ml midazolam 5 mg/ml injection (2 sources) Benzodiazepine Start: 01-08-2024 End: 01-08-2024 intravenous, Administer over 5 Minutes, As needed, Starting on Sun01/08/24 at 1002, Intraprocedure nortriptyline 25 mg oral capsule (11 sources) Tricyclic Antidepressant Start: 05-05-2022 End: 10-10-2023 take 2 capsules by mouth at bedtime Nortriptyline 25 MG capsule Indications: Primary insomnia , Migraine with aura and without status migrainosus, not intractable Take 2 capsules by mouth at bedtime. 62 capsule 05/05/2022 10/10/2023 Discontinued (Medication Reconciliation (suppress cancel msg)) Start: 04-12-2022 End: 05-13-2022 take 1 capsule by mouth at bedtime Nortriptyline 25 MG capsule Indications: Primary insomnia , Migraine with aura and without status migrainosus, not intractable Take 1 capsule by mouth at bedtime. 31 capsule 3 04/12/2022 05/13/2022 Active 20 ml sodium chloride 9 mg/m l injection (3 sources) Start: 10-16-2022 End: 10-16-2022 Sodium chloride (PF) 0.9 % injection 1-100 mL Start: 10-13-2022 End: 10-13-2022 Sodium chloride (PF) 0.9 % i njection 1-100 mL Start: 03-29-2022 End: 03-29-2022 Sodium chloride (PF) 0.9 % i njection 1-100 mL ubrogepant 100 mg oral table t (5 sources) Start: 08-07-2022 End: 11-08-2022 Ubrogepant (Ubrelvy) 100 MG tablet Take 100 mg by mouth as needed (migraine). Take 1 tablet at onset of migraine. Can repeat dose x1 in 2 hours if needed. Max 200mg per 24 hrs. 16 tablet 11 08/07/2022 11/08/2022 Discontinued (Ineffective) Problems Active Problems Problem Classification Problem Date Documented Date Episodic/Chronic Esophageal disorders (18 sources) Gastro-esophageal reflux disease with esophagitis; Translations: [Gastroesophageal reflux disease with esophagitis] Onset: 6 02-22-2022 Chronic Esophageal disorders (2 sources) Esophageal disorders; Translations: [Gastro-esophageal reflux disease with esophagitis, without bleeding] Onset: 4 Headache; including migraine (20 sources) Migraine with aura; Translations: [Migraine with aura, not intractable, without status migrainosus] Onset: 8 Chronic Headache; including migraine (2 sources) Headache; including migraine; Translations: [Headache, unspecified] Onset: 2 Medical examination/evaluat ion (1 source) Encounter for general adult medical examination without abnormal findings; Translations: [Encounter for general adult medical examination without abnormal findings] Onset: 8 Episodic Miscellaneous mental health disorders (1 source) Primary insomnia; Translations: [Primary insomnia] Chronic Other ear and sense organ disorders (2 sources) Asymmetrical sensorineural hearing loss; Translations: [Sensorineural hearing loss, bilateral] 09-13-2022 Chronic Other ear and sense organ disorders (2 sources) Sensorineural hearing loss, bilateral; Translations: [Sensorineural hearing loss, bilateral] Onset: 3 Chronic Other ear and sense organ disorders (2 sources) Mixed conductive and sensorineural hearing loss, unilateral, right ear, with unrestricted hearing on the contralateral side; Translations: [Mixed conductive and sensorineural hearing loss, unilateral, right ear, with unrestricted hearing on the contralateral side] Onset: 3 Chronic Other ear and sense organ disorders (1 source) Pulsatile tinnitus, bilateral; Translations: [Pulsatile tinnitus, bilateral] Onset: 3 Episodic Other eye disorders (15 sources) Bilateral vitreous floaters; Translations: [Other vitreous opacities, bilateral] Onset: 0 02-22-2022 Chronic Other nervous system disorders (4 sources) (Idiopathic) normal pressure hydrocephalus; Translations: [Obstructive hydrocephalus] Onset: 7 Chronic Other nervous system disorders (1 source) Other hydrocephalus; Translations: [Other hydrocephalus] Onset: 8 Chronic Other nervous system disorders (2 sources) Arachnoid cyst; Translations: [Cerebral cysts] Chronic Other nervous system disorders (2 sources) Ventriculoperitoneal shunt in situ; Translations: [Presence of cerebrospinal fluid drainage device] Chronic Other nervous system disorders (2 sources) Cerebrospinal fluid drainage device in situ; Translations: [Presence of cerebrospinal fluid drainage device] Onset: 3 Chronic Other nervous system disorders (1 source) Benign intracranial hypertension; Translations: [Benign intracranial hypertension] Chronic Other nervous system disorders (2 sources) Obstructive hydrocephalus; Translations: [Obstructive hydrocephalus] Onset: 3 Chronic Other nervous system disorders (1 source) Presence of cerebrospinal fluid drainage device; Translations: [Presence of cerebrospinal fluid drainage device] Onset: 3 Chronic Other nervous system disorders (2 sources) Benign intracranial hypertension; Translations: [Benign intracranial hypertension] Onset: 3 Chronic Other nervous system disorders (1 source) Obstructive hydrocephalus; Translations: [Obstructive hydrocephalus] Onset: 3 Chronic Other nervous system disorders (1 source) Intracranial and intraspinal phlebitis and thrombophlebitis; Translations: [Intracranial and intraspinal phlebitis and thrombophlebitis] Onset: 8 Episodic Other nervous system disorders (1 source) Impairment of balance; Translations: [Other abnormalities of gait and mobility] 09-13-2022 Episodic Other nutritional; endocrine; and metabolic disorders (17 sources) Obese class I; Translations: [Obesity, unspecified] Onset: 2 03-23-2021 Chronic Retinal detachments; defects; vascular occlusion; and retinopathy (15 sources) Nonexudative age-related macular degeneration; Translations: [Nonexudative age-related macular degeneration, bilateral, early dry stage] Onset: 9 02-22-2022 Chronic Spondylosis; intervertebral disc disorders; other back problems (18 sources) Other intervertebral disc displacement, lumbar region; Translations: [Spondylosis without myelopathy or radiculopathy, cervical region] Onset: 2 02-22-2022 Chronic Unclassified (1 source) Annual Exam / 83() Onset: 8 Unclassified (1 source) Follow-up / [id number]() Onset: 7 Unclassified (1 source) ERRONEOUS ENCOUNTER--DISREGARD 12-26-2022 Past or Other Problems Problem Classification Problem Date Documented Date Episodic/Chronic Allergic reactions (15 sources) Acute hand eczema; Translations: [Dermatitis, unspecified] Onset: 12-02-2013 02-22-2022 Episodic Blindness and vision defects (15 sources) Diplopia; Translations: [Diplopia] Onset: 03-29-2018 02-22-2022 Episodic Conditions associated with dizziness or vertigo (20 sources) Dizziness; Translations: [Dizziness and giddiness] Onset: 03-28-2017 02-22-2022 Episodic Headache, including migraine (20 sources) Headache; Translations: [Chronic daily headache] Onset: 11-25-2016 Episodic Other aftercare (1 source) Encounter for follow-up examination after completed treatment for conditions other than malignant neoplasm; Translations: [Encounter for follow-up examination after completed treatment for conditions other than malignant neoplasm] Onset: 12-01-2016 Episodic Other connective tissue disease (15 sources) Plantar fasciitis of right foot; Translations: [Plantar fascial fibromatosis] Onset: 03-28-2013 02-22-2022 Episodic Other ear and sense organ disorders (18 sources) Tinnitus of vascular origin; Translations: [Pulsatile tinnitus, bilateral] Onset: 09-26-2017 02-22-2022 Episodic Other inflammatory condition of skin (15 sources) Pruritus of skin; Translations: [Pruritus, unspecified] Onset: 12-02-2013 02-22-2022 Episodic Other nervous system disorders (2 sources) Other abnormalities of gait and mobility; Translations: [Other abnormalities of gait and mobility] Onset: 09-13-2022 Episodic Spondylosis; intervertebral disc disorders; other back problems (20 sources) Cervical radiculopathy; Translations: [Radiculopathy, cervical region] Onset: 11-08-2011 02-22-2022 Episodic Results Test Name Value Interpretation Reference Range [facility] 01-08-2024 Esophagogastroduodenosco py Table formatting from the original result was not included. Impression Type I hiatal hernia Erythematous mucosa, consistent with gastritis; performed cold forceps biopsy Performed forceps biopsies in the GE junction, duodenal bulb and 2nd part of the duodenum to rule out Cormier's esophagus and celiac disease Findings Sliding hiatal hernia (type I hiatal hernia), confirmed by retroflexion. Hill grade II hiatal hernia Erythematous mucosa that did not appear to have erosion, consistent with gastritis; performed cold forceps biopsy to rule out H. pylori Performed multiple forceps biopsies in the GE junction, duodenal bulb and 2nd part of the duodenum to rule out Cormier's esophagus and celiac disease Regular Z-line 39 cm from the incisors Recommendation Follow up with me in clinic Indication Gastroesophageal reflux disease with esophagitis without hemorrhage Staff Staff Role No Staff Documented Medications qwiehkbi-hagylefwyh-ajlqv oksana (Cetacaine) spray 2 spray midazolam PF (Versed) injection 5 mg fentaNYL PF (Sublimaze) injection 50 mcg (Totals for administrations occurring from 0953 to 1009 on 01/08/24) Preprocedure A history and physical has been performed, and patient medication allergies have been reviewed. The patient's tolerance of previous anesthesia has been reviewed. The risks and benefits of the procedure and the sedation options and risks were discussed with the patient and patient's partner. All questions were answered and informed consent obtained. Details of the Procedure The patient underwent moderate sedation, which was administered by the procedural nurse. The patient's blood pressure, ECG, ETCO2, heart rate, level of consciousness, oxygen and respirations were monitored throughout the procedure. The scope was introduced through the mouth and advanced to the third part of the duodenum. Retroflexion was performed in the cardia. Prior to the procedure, the patient's H. Pylori status was unknown. The patient experienced no blood loss. The procedure was not difficult. The patient tolerated the procedure well. There were no apparent adverse events. Events Procedure Events Event Event Time ENDO SCOPE IN TIME 01/08/2024 10:03 AM ENDO SCOPE OUT TIME 01/08/2024 10:07 AM Specimens ID Type Source Tests Collected by Time 1 : ANTRUM BIOPSY Tissue STOMACH ANTRUM BIOPSY SURGICAL PATHOLOGY EXAM Mony Cox MA 01/08/2024 1004 2 : DUODENUM SECOND PART BIOPSY Tissue DUODENUM SECOND PART BIOPSY SURGICAL PATHOLOGY EXAM Mony Cox MA 01/08/2024 1004 3 : DISTAL ESOPHAGUS BIOPSY Tissue ESOPHAGUS DISTAL BIOPSY SURGICAL PATHOLOGY EXAM Mony Cox MA 01/08/2024 1004 Procedure Location [address] [id number] Referring Provider Louis Carrillo DO Procedure Provider Louis Carrillo DO [facility] Comment on above: Order Comment: 01/07 EGD Study observation Narrat darwin 01-08-2024 Table formatting fro m the original result was not included. Impression Type I hiatal hernia Erythematous mucosa, consistent with gastritis; performed cold forceps biopsy Performed forceps biopsies in the GE junction, duodenal bulb and 2nd part of the duodenum to rule out Cormier's esophagus and celiac disease Findings Sliding hiatal hernia (type I hiatal hernia), confirmed by retroflexion. Hill grade II hiatal hernia Erythematous mucosa that did not appear to have erosion, consistent with gastritis; performed cold forceps biopsy to rule out H. pylori Performed multiple forceps biopsies in the GE junction, duodenal bulb and 2nd part of the duodenum to rule out Cormier's esophagus and celiac disease Regular Z-line 39 cm from the incisors Recommendation Follow up with me in clinic Indication Gastroesophageal reflux disease with esophagitis without hemorrhage Staff Staff Role No Staff Documented Medications smaywxrk-nabbfphnll-fcvep oksana (Cetacaine) spray 2 spray midazolam PF (Versed) injection 5 mg fentaNYL PF (Sublimaze) injection 50 mcg (Totals for administrations occurring from 0953 to 1009 on 01/08/24) Preprocedure A history and physical has been performed, and patient medication allergies have been reviewed. The patient's tolerance of previous anesthesia has been reviewed. The risks and benefits of the procedure and the sedation options and risks were discussed with the patient and patient's partner. All questions were answered and informed consent obtained. Details of the Procedure The patient underwent moderate sedation, which was administered by the procedural nurse. The patient's blood pressure, ECG, ETCO2, heart rate, level of consciousness, oxygen and respirations were monitored throughout the procedure. The scope was introduced through the mouth and advanced to the third part of the duodenum. Retroflexion was performed in the cardia. Prior to the procedure, the patient's H. Pylori status was unknown. The patient experienced no blood loss. The procedure was not difficult. The patient tolerated the procedure well. There were no apparent adverse events. Events Procedure Events Event Event Time ENDO SCOPE IN TIME 01/08/2024 10:03 AM ENDO SCOPE OUT TIME 01/08/2024 10:07 AM Specimens ID Type Source Tests Collected by Time 1 : ANTRUM BIOPSY Tissue STOMACH ANTRUM BIOPSY SURGICAL PATHOLOGY EXAM Mony Cox MA 01/08/2024 1004 2 : DUODENUM SECOND PART BIOPSY Tissue DUODENUM SECOND PART BIOPSY SURGICAL PATHOLOGY EXAM Mony Cox MA 01/08/2024 1004 3 : DISTAL ESOPHAGUS BIOPSY Tissue ESOPHAGUS DISTAL BIOPSY SURGICAL PATHOLOGY EXAM Mony Cox MA 01/08/2024 1004 Procedure Location [address] [facility] [id number] Referring Provider Louis Carrillo DO Procedure Provider Louis Carrillo DO [facility] Work Phone: [facility] Work Phone: Radiology Study observation (narrative) [facility] Work Phone: CT ANGIO BRAIN/NECKon 2022 CT ANGIO BRAIN/NECK EXAM: CT ANGIO BRAIN/NECK, 10/13/2022 16:15 PM COMPARISON: No previous study is available for comparison. CLINICAL INDICATIONS: 57 years Male pulsatile tinnitus, rule out AVM; RELEVANT CLINICAL HISTORY: H93.A3:Pulsatile tinnitus of both ears TECHNIQUE: A series of transaxial multislice computerized tomographic images are obtained with helical technique from top of aortic arch to vertex following bolus intravenous administration of nonionic contrast. Axial thin section source images, as well as sagittal and coronal thin section reformats, were provided at the scanner. Additional multiplanar and 3D reconstructions were provided. CONTRAST: iohexol (OMNIPAQUE) 350 MG/ML injection 1-171 mL; Route of Administration: Intravenous; Dose: 100 mL. FINDINGS: CT ANGIOGRAM NECK: AORTIC ARCH: Conventional anatomic origin of the great vessels. No significant stenosis. RIGHT CAROTID ARTERY: Common carotid artery is patent and normal in caliber. Internal carotid artery origin at the bifurcation is patent and normal in caliber. More distal cervical segments of the internal carotid artery are patent and normal in caliber. LEFT CAROTID ARTERY: Common carotid artery is patent and normal in caliber. Internal carotid artery origin at the bifurcation is patent and normal in caliber. More distal cervical segments of the internal carotid artery are patent and normal in caliber. RIGHT VERTEBRAL ARTERY: Origin is patent. More distal cervical segments are patent and normal in caliber. LEFT VERTEBRAL ARTERY: Origin is patent. More distal cervical segments are patent and normal in caliber. OTHER: No dissection or pseudoaneurysm. CT ANGIOGRAM HEAD: INTERNAL CAROTID ARTERIES: Patent and normal in caliber. ANTERIOR CEREBRAL ARTERIES: Patent and normal in caliber. MIDDLE CEREBRAL ARTERIES: Patent and normal in caliber. POSTERIOR CEREBRAL ARTERIES: Patent and normal in caliber. VERTEBRAL ARTERIES: Patent and normal in caliber. BASILAR ARTERY: Patent. No significant stenosis. OTHER: No aneurysm or AVM. ADDITIONAL FINDINGS: Shunt catheter extending from the right frontal approach with the tip in the region of the left lateral ventricle. Left occipital craniotomy changes. Left Retrocerebellar arachnoid cyst. Paranasal sinus disease. IMPRESSION: No significant stenoses or occlusions identified in the CTA of the brain and neck. Normal [facility] MRI INTERNAL AUDITORY CANAL WITH AND WITHOUT CONTRASTon 10-19-2022 MRI INTERNAL AUDITORY CANAL WITH AND WITHOUT CONTRAST EXAM: MRI INTERNAL AUDITORY CANAL WITH AND WITHOUT CONTRAST, 10/16/2022 13:58 PM COMPARISON: MRI brain 03/29/2022. CLINICAL INDICATION: 57 years Male asymmetric sensorineural hearing loss; RELEVANT CLINICAL HISTORY: H90.3:Asymmetric SNHL (sensorineural hearing loss) TECHNIQUE: A series of sagittal, axial and coronal multisequence images of the head are obtained both before and after intravenous administration of contrast. Study includes dedicated evaluation of the internal auditory canals, with pre-and postcontrast thin section axial and coronal T1-weighted, axial thin section T2 3D SPACE, and axial thin section 3D VIBE images obtained through the level of the IACs. Study was performed at [address] [place]. CONTRAST: gadoterate Meglumine (DOTAREM) 5 MMOL/10ML injection 3-60 mL; Route of Administration: Intravenous; Dose: 19 mL. FINDINGS: Posterior Fossa: Stable asymmetric retrocerebellar CSF space overlying the vermis and left cerebellar hemisphere, which may represent an arachnoid cyst. Prior left-sided suboccipital craniotomy likely related to decompression. Brainstem and cerebellum appear unremarkable. No cerebello-pontine angle cistern mass. No vascular abnormality is identified. Temporal Bones: Seventh and eighth nerve complexes appear unremarkable, without evidence of mass or abnormal enhancement. Otic capsule structures appear unremarkable. No vascular abnormality is identified. Mastoid signal within normal limits. No other temporal bone signal abnormality is identified. Supratentorial Brain: Partially imaged ventriculostomy shunt catheter which crosses the midline and terminates in the left lateral ventricle. Ventricles appear stable in size compared to the previous MRI brain study. No acute abnormality in the visible supratentorial brain. Scattered opacity throughout the ethmoid air cells. Retention cysts or polyps in the left greater than right maxillary sinuses. IMPRESSION: No vestibular schwannoma or other retrocochlear abnormality. Normal [facility] MRI BRAIN WITH AND WITHOUT C Parag 03-31-2022 MRI BRAIN WITH AND WITHOUT CONTRAST EXAM: MRI BRAIN WITH AND WITHOUT CONTRAST, 03/29/2022 14:33 PM COMPARISON: Compared to MRI brain with and without contrast December 15, 2020 CLINICAL INDICATIONS: 57 years Male new migraine; RELEVANT CLINICAL HISTORY: G43.109:Migraine with aura and without status migrainosus, not intractable MRI-/+G brain: 57 yr male with new onset migraine w/ fortification spectrum. Please look for alternative Dx like an AVM. Thanks [facility] ; TECHNIQUE: A series of multisequence, multiplanar images of the brain are obtained both before and after intravenous administration of gadolinium-based contrast using standard protocol. Study was performed at 3 [place]. CONTRAST: gadoterate Meglumine (DOTAREM) 5 MMOL/10ML injection 3-60 mL; Route of Administration: Intravenous; Dose: 20 mL. FINDINGS: Postsurgical changes from right frontal approach shunt catheter with tip crossing midline located in the left foramen of Monro with surrounding gliosis Parenchymal signal abnormality is identified. Minimal scattered foci of T2/FLAIR hyperintensity in the periventricular and subcortical white matter are nonspecific, but likely related to chronic small vessel ischemic disease. No evidence of edema. No evidence of mass lesion. No evidence of hemorrhage. No diffusion restriction or evidence of acute infarct is identified. Diffuse dural enhancement with similar dilation of the transverse sinus and similar prominence of the venous structures in the brainstem along the clivus. These findings are consistent with intracranial hypotension as noted previously. When compared to prior, the dural thickening and enhancement have decreased. No extracerebral collection. Similar small pituitary fossa with resultant bulge into the suprasellar cistern likely due to the nature of the small fossa and normal size of pituitary. Stable asymmetric retrocerebellar CSF space overlying the vermis and left cerebellar hemisphere. Likely represents an arachnoid cyst. Ventricles are moderately enlarged with biventricular diameter measuring 4.6 cm, previously 4.1 cm. Prior left-sided subacute subdural craniotomy likely related to decompression. Stable inflammatory changes seen in the paranasal sinuses, most prominent in the ethmoid air cells with retention cysts in the maxillary sinuses. IMPRESSION: 1. No acute intracranial findings. No evidence for arteriovenous malformation. No significant change since prior examination. 2. Improved findings of intracranial hypotension with decreased diffuse dural thickening and enhancement with congestion of the dural sinuses and venous structures. 3. Stable left retrocerebellar arachnoid cyst. Status post left suboccipital craniotomy. 4. Status post right sided ventricular shunt placement with moderately enlarged ventricles I personally viewed and interpreted these images and I have reviewed and approved this report. Normal [facility] PROGRAM BRAIN & SPINAL FLUID SHUNTon 03-29-2022 Simi Mcwilliams MD 03/29/2022 5:27 PM PROGRAM BRAIN & SPINAL FLUID SHUNT Performed by: Simi Mcwilliams MD Authorized by: Simi Mcwilliams MD I adjusted the patient's ventriculoperitoneal shunt Codman Hakim Medos programmable valve from 180 to 200 X-ray obtained: no [facility] Radiology Study observation (narrative) [facility] HVF 30-2 FAST - OUon 022 HVF 30-2 FAST - OU HVF: 30-2, 02/22/2022 OD Reliability good Fovea: NL 36dB Blind spot: NL Description: NL with a few far peripheral trial lens artifact spots. OS Reliability excellent Fovea: NL 36dB Blind spot: NL Description: NL Assessment: OU NL Normal [facility] Perimetry studyon 02-22-2022 [facility] HVF: 30-2, 02/22/2022 OD Reliability good Fovea: NL 36dB Blind spot: NL Description: NL with a few far peripheral trial lens artifact spots. OS Reliability excellent Fovea: NL 36dB Blind spot: NL Description: NL Assessment: OU NL [facility] PROGRAM BRAIN & SPINAL FLUID SHUNTon 01-03-2022 Simi Mcwilliams MD 01/03/2022 2:39 PM PROGRAM BRAIN & SPINAL FLUID SHUNT Performed by: Simi Mcwilliams MD Authorized by: Simi Mcwilliams MD Baldev Cantu Medwilbert programmable valve from 200 to 180 X-ray obtained: yes [facility] Radiology Study observation (narrative) [facility] Juan 06-16-2020 CNPN Telephone ([facility]) ----- ARMANDO CHATTERJEE ([id number]) 1965 M Date Time Provider Department 06/16/20 BENNETT DE LA FUENTE During your visit today, we recorded the following information about you: Tru Ornelas MA 06/16/2020 8:48 AM Signed Printed all chart notes and imaging reports and mailed to [facility] at [address] [place], [place] [address] [id number] Allergies As of Date: 06/16/2020 Noted Allergy Reaction LATEX, NATURAL RUBBER 09/26/2017 14 - Other: See Comments Comments: Burning SHELLFISH DERIVED 05/01/2016 16 - Unknown Comments: Diagnosed from blood work Date Reviewed: 06/27/2019 Reviewed by: Bennett De La Fuente - Fully Assessed Reason for Visit: request for chart notes [Other] Prescriptions as of 06/16/2020 Sig: PROPRANOLOL ER 80 MG CAPSULE,* Take 1 capsule by mouth once * GABAPENTIN 600 MG TABLET Take 2 tablets by mouth three* MELATONIN 3 MG TABLET Take 3 mg by mouth daily at b* Problem List As Of Date 06/16/2020 Noted Resolved Chronic migraine without aura, with intractable*09/26/2017 Intractable chronic migraine without aura and w*09/26/2017 Chronic daily headache [R51.9] 09/26/2017 Pulsatile tinnitus, bilateral [H93.A3] 09/26/2017 Diplopia [H53.2] 03/29/2018 Visual disturbances [H53.9] 03/29/2018 Nonexudative age-related macular degeneration, *03/29/2018 NDPH (new daily persistent headache) [G44.52] 01/22/2019 Vitreous floaters of both eyes [H43.393] 04/09/2019 Migraine without aura and without status migrai*06/27/2019 Encounter Status:Closed by TRU ORNELAS MA on 06/17/20 Normal [facility] PT Progress Noteon 0 PT Progress Note Therapy Diagnosis Assessed Acute right-sided low back pain without sciatica (724.2) (M54.5) Gait, antalgic (781.2) (R26.89) Insurance Insurance reviewed Visit number: 8 Authorization not required after evaluation 10/25 visit [facility]; 60 visit max Evaluating Physical Therapist: Yara Galan DPT, OCS . Subjective Patient reports: Armando reported he still has constant tingling in middle 3 toes, and pain at right low back and buttock. He notes 90% improvement since starting PT. Patient rates current pain /10. Precautions: LATEX ALLERGY. Objective Ortho Standing posture: flat lumbar spine, no shift Gait: very slightly antalgic on RLE with initial steps Lumbar AROM: Flexion: fingertips to floor, no change with reps Ext: 75%, no change with reps Prone EXT: wnl Side glide: (+) mid lower back pain LE myotomes: 5/5 BLEs LE reflexes: patella, achilles intact BLEs Palpation: lumbar muscles WNL, Joint mobility: mild stiffness R L3-4, L4-5, L5-S1, no pain now Oswestry LBP: 8% (vs. 28% Initial) . Treatment Therapeutic exercise (11237): timed minutes 20, units 1 . prone prop on elbows x2' prone press ups x10 hip extension in prone 2x10 B [X] alt UE and LE lifts in prone 2x10, TA setting TA contraction plantigrade 3 hold x10 bridge 2x10 Isometric bug with manual resistance from [employer] 2 hold x15 (X) LTR x10 hip flexor stretch 2x30 B HS stretch seated 5x10 R hold (X) plantigrade hip extension x10 plantigrade hip abd x10 rows LATEX FREE purple band 2x10 standing [X - not time today] shoulder extension LATEX FREE purple band 2x10 standing [X - no time] Palloff Press: Latex Free Standing self side glide to LEFT at wall: x10 . Manual Therapy (61918): timed minutes 10, units 1 . Lumbar joint mobilizations: L and R UPAs grade 3+,4 L4-5, L5-S1, sacral UPAs in prone and prone on elbows 2x30 sec bouts each. Modalities: untimed minutes 15, units 1 . lumbar mechanical traction, intermittent, max 115#, min 60#, on 45/ 20 on/off x15 mins supine with bolsters under LE's. mechanical traction (69035) lumbar. Provided today: education . re: daily HEP to include standing side glides to L, lumbar EXT standing and prone press-ups; and core stability with bridge and standing plantigrade hip ext. Assessment Armando has had significant decrease in his LBP and RLE symptoms since starting PT, and noted most improvement after mechanical lumbar traction. He is independent with his HEP, and feels ready to be discharged from PT. Interdisciplinary Team Communication: . Response to treatment: decreased pain and improved knowledge and understanding of condition. Plan Planned interventions include: home program. Goals: Goals set and discussed today. In weeks, ARMANDO CHATTERJEE will achieve the following goals: 1. Patient will be independent with the HEP to manage symptoms 2. Patient will demonstrate normal gait pattern without assistive device, by week 2, goal met Activity Limitation: 3. Patient to have a score on modified Oswestry disability Index of <=15%, by week 4, goal met , 4. Patient will demonstrate full and painfree lumbar AROM in all planes , by week 4, goal met , 5. Patient to report LE symptoms <=2/10 pain level, by week 4, goal met Frequency and duration: No further visits planned. Potential to achieve rehab goals is good Discharge patient:. Signatures Electronically signed by : Yara Galan PT; May 12 2019 10:19AM EST (Author) [facility] Therapy Re-eval Noteon 05-12 Therapy Re-eval Note Therapy Diagnosis Assessed 1. Acute right-sided low back pain without sciatica (724.2) (M54.5) 2. Gait, antalgic (781.2) (R26.89) Insurance Insurance reviewed Visit number: 8 Authorization not required after evaluation 10/25 visit [facility] [place]; 60 visit max Evaluating Physical Therapist: Yara Galan, DANNYT, OCS . Subjective Patient reports: Armando reported he still has constant tingling in middle 3 toes, and pain at right low back and buttock. He notes 90% improvement since starting PT. Patient rates current pain 2/10. Precautions: LATEX ALLERGY. Objective Ortho Standing posture: flat lumbar spine, no shift Gait: very slightly antalgic on RLE with initial steps Lumbar AROM: Flexion: fingertips to floor, no change with reps Ext: 75%, no change with reps Prone EXT: wnl Side glide: (+) mid lower back pain LE myotomes: 5/5 BLEs LE reflexes: patella, achilles intact BLEs Palpation: lumbar muscles WNL, Joint mobility: mild stiffness R L3-4, L4-5, L5-S1, no pain now Oswestry LBP: 8% (vs. 28% Initial) . Assessment Armando has had significant decrease in his LBP and RLE symptoms since starting PT, and noted most improvement after mechanical lumbar traction. He is independent with his HEP, and feels ready to be discharged from PT. Interdisciplinary Team Communication: . Response to treatment: decreased pain and improved knowledge and understanding of condition. Treatment Therapeutic exercise (53051): timed minutes 20, units 1 . prone prop on elbows x2' prone press ups x10 hip extension in prone 2x10 B [X] alt UE and LE lifts in prone 2x10, TA setting TA contraction plantigrade 3 hold x10 bridge 2x10 Isometric bug with manual resistance from [employer] 2 hold x15 (X) LTR x10 hip flexor stretch 2x30 B HS stretch seated 5x10 R hold (X) plantigrade hip extension x10 plantigrade hip abd x10 rows LATEX FREE purple band 2x10 standing [X - not time today] shoulder extension LATEX FREE purple band 2x10 standing [X - no time] Palloff Press: Latex Free Standing self side glide to LEFT at wall: x10 . Manual Therapy (78906): timed minutes 10, units 1 . Lumbar joint mobilizations: L and R UPAs grade 3+,4 L4-5, L5-S1, sacral UPAs in prone and prone on elbows 2x30 sec bouts each. Modalities: untimed minutes 15, units 1 . lumbar mechanical traction, intermittent, max 115#, min 60#, on 45/ 20 on/off x15 mins supine with bolsters under LE's. mechanical traction (08857) lumbar. Provided today: education . re: daily HEP to include standing side glides to L, lumbar EXT standing and prone press-ups; and core stability with bridge and standing plantigrade hip ext. Plan Planned interventions include: home program. Goals: Goals set and discussed today. In weeks, ARMANDO CHATTERJEE will achieve the following goals: 1. Patient will be independent with the HEP to manage symptoms 2. Patient will demonstrate normal gait pattern without assistive device, by week 2, goal met Activity Limitation: 3. Patient to have a score on modified Oswestry disability Index of <=15%, by week 4, goal met , 4. Patient will demonstrate full and painfree lumbar AROM in all planes , by week 4, goal met , 5. Patient to report LE symptoms <=2/10 pain level, by week 4, goal met Frequency and duration: No further visits planned. Potential to achieve rehab goals is good Discharge patient:. Signatures Electronically signed by : Yara Galan, PT; May 12 2019 10:19AM EST (Author) [facility] PT Progress Noteon 0 PT Progress Note Therapy Diagnosis Assessed Acute right-sided low back pain without sciatica (724.2) (M54.5) Gait, antalgic (781.2) (R26.89) Insurance Insurance reviewed Visit number: 7 Authorization not required after evaluation 09/24 visit [facility] [place]; 60 visit max Evaluating Physical Therapist: Yara Galan DPT, OCS . Subjective Patient reports: Pt. states that he is working on his HEP. Pt. states that therapy has really helped him. Pt. states that he is dry walling at his house. Precautions: LATEX ALLERGY. Treatment Time in clinic started at 9:30 am Time in clinic ended at 10:16 am Total time in clinic is 46 minutes. Total timed code time is 30 minutes. Therapeutic exercise (49790): timed minutes 28, units 2 . prone prop on elbows x2' prone press ups 2x10 hip extension in prone 2x10 B [X] alt UE and LE lifts in prone 2x10, TA setting TA contraction plantigrade 3 hold x10 bridge 2x10 Isometric bug with manual resistance from [employer] 2 hold x15 (X) LTR x10 hip flexor stretch 2x30 B HS stretch seated 5x10 R hold (X) plantigrade hip extension x10 plantigrade hip abd x10 rows LATEX FREE purple band 2x10 standing [X - not time today] shoulder extension LATEX FREE purple band 2x10 standing [X - no time] Palloff Press: Latex Free (A) Standing self side glide at wall: x10 . Manual Therapy (94795):. Lumbar joint mobilizations: L and R UPAs grade 3+,4 L4-5, L5-S1, sacral UPAs in prone and prone on elbows 2x30 sec bouts each [X]. Modalities: untimed minutes 15, units 1 . lumbar mechanical traction, intermittent, max 115#, min 55#, on 40/ 20 on/off x15 mins supine with bolsters under LE's. mechanical traction (66875) lumbar. Assessment Fair tolerance to ther ex. Relief noted with [facility] lumbar traction. Reviewed HEP. Mild guarding noted with transfers. V/c to correct TrA contraction. Plan Planned interventions include: education/instruction, home program, manual therapy, mechanical traction and therapeutic exercises. Goals: Goals set and discussed today. In weeks, ARMANDO CHATTERJEE will achieve the following goals: 1. Patient will be independent with the HEP to manage symptoms 2. Patient will demonstrate normal gait pattern without assistive device, by week 2, goal met Activity Limitation: 3. Patient to have a score on modified Oswestry disability Index of <=15%, by week 4 , 4. Patient will demonstrate full and painfree lumbar AROM in all planes , by week 4 , 5. Patient to report LE symptoms <=2/10 pain level, by week 4 Frequency and duration: 2 time(s) a week, for 4 weeks, for 8 visits. Potential to achieve rehab goals is good Progress core strengthening next visit. Progress with POC, as tolerated. Signatures Electronically signed by : Martha Mcdonald PTA; May 07 2019 10:16AM EST (Author) Electronically signed by : Yara Galan PT; May 08 2019 9:31AM EST [facility] Therapy Communicationon 04-19 Therapy Communication Message ARMANDO CHATTERJEE no showed today . Signatures Electronically signed by : Leonela Mason PTA; May 05 2019 9:23AM EST (Author) [facility] Progress Noteon 0 PT Progress Note Therapy Diagnosis Assessed Gait, antalgic (781.2) (R26.89) Acute right-sided low back pain without sciatica (724.2) (M54.5) Insurance Insurance reviewed Visit number: 6 Authorization not required after evaluation 08/25 visit [facility] [place]; 60 visit max Evaluating Physical Therapist: Yara Galan, DPT, OCS . Subjective Patient reports: Overall I'm getting better since starting therapy but still having pain. Once I'm up and moving around I feel pretty good and I'm able to do home improvement projects without too much difficulty. After the traction treatment, my pain is almost gone. Precautions: LATEX ALLERGY. Treatment Time in clinic started at 0920 Time in clinic ended at 1015 Total time in clinic is 55 minutes. Total timed code time is 43 minutes. Therapeutic exercise (19438): timed minutes 28, units 2 . prone prop on elbows x2' prone press ups 2x10 hip extension in prone 2x10 B [X] alt UE and LE lifts in prone 2x10, TA setting TA contraction plantigrade 3 hold x10 bridge 2x10 Isometric bug with manual resistance from [employer] 2 hold x15 (X) LTR x10 hip flexor stretch 2x30 B HS stretch seated 5x10 R hold (X) plantigrade hip extension x10 plantigrade hip abd x10 rows LATEX FREE purple band 2x10 standing [X - not time today] shoulder extension LATEX FREE purple band 2x10 standing [X - no time] Palloff Press: Latex Free (A) Standing self side glide at wall: x10 . Manual Therapy (86254):. Lumbar joint mobilizations: L and R UPAs grade 3+,4 L4-5, L5-S1, sacral UPAs in prone and prone on elbows 2x30 sec bouts each [X]. Modalities: untimed minutes 15, units 1 . lumbar mechanical traction, intermittent, max 115#, min 55#, on 40/ 20 on/off x15 mins supine with bolsters under LE's. mechanical traction (94033) lumbar. Assessment Patient responding well to activities listed above, noting significantly reduced symptoms post-treatment. Good compliance and understanding of current HEP. Improved gt upon exit, observing antalgic pattern and more upright posture. Plan Planned interventions include: education/instruction, home program, manual therapy, mechanical traction and therapeutic exercises. Goals: Goals set and discussed today. In weeks, ARMANDO CHATTERJEE will achieve the following goals: 1. Patient will be independent with the HEP to manage symptoms 2. Patient will demonstrate normal gait pattern without assistive device, by week 2, goal met Activity Limitation: 3. Patient to have a score on modified Oswestry disability Index of <=15%, by week 4 , 4. Patient will demonstrate full and painfree lumbar AROM in all planes , by week 4 , 5. Patient to report LE symptoms <=2/10 pain level, by week 4 Frequency and duration: 2 time(s) a week, for 4 weeks, for 8 visits. Potential to achieve rehab goals is good Plan to continue skilled interventions to decrease challenges with activities at home. Progress with POC, as tolerated. Signatures Electronically signed by : Harvey Pressley [employer] WORKER; Apr 30 2019 10:34AM EST (Author) Electronically signed by : Yara Galan, PT; Apr 30 2019 12:34PM EST [facility] Progress Noteon 0 PT Progress Note Therapy Diagnosis Assessed Acute right-sided low back pain without sciatica (724.2) (M54.5) Gait, antalgic (781.2) (R26.89) Insurance Insurance reviewed Visit number: 5 Authorization not required after evaluation 07/25 visit [facility] [place]; 60 visit max Evaluating Physical Therapist: DANNY KimT, OCS . Subjective Patient reports: Armando reported that he feels less stiffness and pain in the mornings now. Still feels better with movement. He reports 3/10 pain at right lower back, proximal buttock, and intermittently into his calf; and numbness along anterior R thigh. At home he is using his [employer] and doing the exercises. He has been able to do drywall and other projects at home. Precautions: LATEX ALLERGY. Treatment Time in clinic started at 1025 Time in clinic ended at 1110 Total time in clinic is 45 minutes. Total timed code time is 42 minutes. Therapeutic exercise (49377): timed minutes 15, units 1 . prone prop on elbows x2' prone press ups 2x10 hip extension in prone 2x10 B (X) alt UE and LE lifts in prone 2x10, TA setting TA contraction plantigrade 3 hold x10 bridge 2x10 Isometric bug with manual resistance from [employer] 2 hold x15 (X) LTR x10 hip flexor stretch 2x30 B HS stretch seated 5x10 R hold (X) plantigrade hip extension x10 plantigrade hip abd x10 rows LATEX FREE purple band 2x10 standing shoulder extension LATEX FREE purple band 2x10 standing Palloff Press: Latex Free (A) Standing self side glide at wall: x10 . Manual Therapy (53204): timed minutes 12, units 1 . Lumbar joint mobilizations: L and R UPAs grade 3+,4 L4-5, L5-S1, sacral UPAs in prone and prone on elbows 2x30 sec bouts each. Modalities: untimed minutes 15, units 1 . lumbar mechanical traction, intermittent, max 115#, min 55#, on 40/ 20 on/off x15 mins supine with bolsters under LE's. mechanical traction (78293) lumbar. Assessment He demonstrates improved gait on arrival today, with mildly antalgic pattern on RLE. No longer has a lateral shift posture in standing. He responded well to manual interventions today with improved joint mobility and less LBP. He continues to get symptom improvement following mechanical lumbar traction each session. He will benefit from continuing with PT intervention to reduce his LBP and RLE symptoms. Plan Planned interventions include: education/instruction, home program, manual therapy, mechanical traction and therapeutic exercises. Goals: Goals set and discussed today. In weeks, ARMANDO CHATTERJEE will achieve the following goals: 1. Patient will be independent with the HEP to manage symptoms 2. Patient will demonstrate normal gait pattern without assistive device, by week 2, goal met Activity Limitation: 3. Patient to have a score on modified Oswestry disability Index of <=15%, by week 4 , 4. Patient will demonstrate full and painfree lumbar AROM in all planes , by week 4 , 5. Patient to report LE symptoms <=2/10 pain level, by week 4 Frequency and duration: 2 time(s) a week, for 4 weeks, for 8 visits. Potential to achieve rehab goals is good Progress with POC, as tolerated. Signatures Electronically signed by : Yara Galan PT; Apr 28 2019 12:26PM EST (Author) Normal [facility] PT Progress Noteon 0 PT Progress Note Therapy Diagnosis Assessed Acute right-sided low back pain without sciatica (724.2) (M54.5) Gait, antalgic (781.2) (R26.89) Insurance Insurance reviewed Visit number: 4 Authorization not required after evaluation 06/25 visit [facility] [place]; 60 visit max Evaluating Physical Therapist: Yara Galan DPT, MAINOR . Subjective Patient reports: Patient reports 4/10 low back discomfort on R and notes radicular symptoms radiating to dorsal aspect of foot consisting of numbness/tingling. States experiencing about a day to day and half of decreased low back discomfort and decreased radicular symptom intensity after PT sessions. At exit patient reports decreased discomfort stating It's still going down the leg some but the back feels better . Home program performing as directed: Yes. Precautions: LATEX ALLERGY. Treatment Time in clinic started at 9:25 am Time in clinic ended at 10:25 am Total time in clinic is 60 minutes. Total timed code time is 59 minutes. Therapeutic exercise (45760): timed minutes 44, units 3 . prone prop on elbows x2' prone press ups 2x10 hip extension in prone 2x10 B alt UE and LE lifts in prone 2x10 TA contraction plantigrade 3 hold x10 bridge 2x10 Isometric bug with manual resistance from FISH HOUSE WORKER 2 hold x15 LTR x10 hip flexor stretch 2x30 B HS stretch seated 5x10 R hold plantigrade hip extension x10 plantigrade hip abd x10 rows LATEX FREE purple band 2x10 seated shoulder extension LATEX FREE purple band 2x10 seated Palloff Press: Latex Free (A) Standing self side glide at wall: x10 . Modalities: untimed minutes 15, units 1 . lumbar mechanical traction, intermittent, max 115#, min 55#, on 40/ 20 on/off x15 mins supine with bolsters under LE's. mechanical traction (79236) lumbar. Assessment Patient ambulating from lobby with L lateral trunk lean and antalgic gait on R with decreased stance phase vs. L LE. Resumed standing side glides with slight symptom relief noted while performing exercise. Plan Planned interventions include: education/instruction, home program, manual therapy, mechanical traction and therapeutic exercises. Goals: Goals set and discussed today. In weeks, ARMANDO CHATTERJEE will achieve the following goals: 1. Patient will be independent with the HEP to manage symptoms 2. Patient will demonstrate normal gait pattern without assistive device, by week 2 Activity Limitation: 3. Patient to have a score on modified Oswestry disability Index of <=15%, by week 4 , 4. Patient will demonstrate full and painfree lumbar AROM in all planes , by week 4 , 5. Patient to report LE symptoms <=2/10 pain level, by week 4 Frequency and duration: 2 time(s) a week, for 4 weeks, for 8 visits. Potential to achieve rehab goals is good Plan to add palloff press next visit for additional core strengthening and lumbar stability and decreased episodes of low back and LE discomfort with ambulation. AM . Progress with POC, as tolerated. Signatures Electronically signed by : Dominique Humphrey FISH HOUSE WORKER; Apr 23 2019 10:35AM EST (Author) Electronically signed by : Francisco Godfrey PT; Apr 23 2019 4:27PM EST Normal [facility] PT Progress Noteon 0 PT Progress Note Therapy Diagnosis Assessed Acute right-sided low back pain without sciatica (724.2) (M54.5) Gait, antalgic (781.2) (R26.89) Insurance Insurance reviewed Visit number: 3 Authorization not required after evaluation 05/25 visit [facility] [place]; 60 visit max Evaluating Physical Therapist: Yara Galan DPT, OCS . Subjective Patient reports: Patient reports 910 R low back and hip discomfort in lateral aspect of LE with numbness/tingling noted radiating to dorsal aspect of foot. States experiencing some relief in radicular symptoms after mechanical traction use. At exit patient reports decreased radicular symptoms stating only experiencing R low back and hip discomfort. Precautions: LATEX ALLERGY. Treatment Time in clinic started at 9:00 am Time in clinic ended at 9:45 am Total time in clinic is 54 minutes. Total timed code time is 44 minutes. Therapeutic exercise (22359): timed minutes 44, units 3 . LATEX ALLERGY prone laying x4 mins prone prop on elbows x2' prone press ups 2x10 hip extension in prone 2x10 B alt UE and LE lifts in prone 2x10 TA contraction plantigrade 3 hold x10 bridge 2x10 Isometric bug with manual resistance from FISH HOUSE WORKER 2 hold x15 LTR x10 hip flexor stretch 2x30 B HS stretch seated 5x10 R hold plantigrade hip extension x10 plantigrade hip abd x10 rows LATEX FREE purple band 2x10 seated shoulder extension LATEX FREE purple band 2x10 seated Seated barbadian ball + TrA: LAQ, Marches, Alt UE, 90 deg. ball raise (A) Standing self side glide at wall (A) . Modalities: untimed minutes 10, units 1 . lumbar mechanical traction 110# intermittent, max 110#, min 50#, on 40 /off 10 x15 mins (P duration). mechanical traction (34218) lumbar. Assessment Increased mechanical traction duration today due to patient's report of decreased low back discomfort and LE radicular symptoms after traction use last session. Significant lateral lean to L with ambulation from lobby to treatment area and antalgic gait present on R LE with decreased stance phase vs. L LE. At end of session increased upright posture noted with antalgic gait still present on R [facility] Planned interventions include: education/instruction, home program, manual therapy, mechanical traction and therapeutic exercises. Goals: Goals set and discussed today. In weeks, ARMANDO CHATTERJEE will achieve the following goals: 1. Patient will be independent with the HEP to manage symptoms 2. Patient will demonstrate normal gait pattern without assistive device, by week 2 Activity Limitation: 3. Patient to have a score on modified Oswestry disability Index of <=15%, by week 4 , 4. Patient will demonstrate full and painfree lumbar AROM in all planes , by week 4 , 5. Patient to report LE symptoms <=2/10 pain level, by week 4 Frequency and duration: 2 time(s) a week, for 4 weeks, for 8 visits. Potential to achieve rehab goals is good Plan to continue vthcanical traction and postural strengthening as tolerated and plan to add core stabilization on barbadian ball and wall lateral glide next visit to decrease lateral trunk lean compensation and improve upright posture with ADL's. AM . Progress with POC, as tolerated. Signatures Electronically signed by : Dominique Humphrey FISH HOUSE WORKER; Apr 21 2019 9:57AM EST (Author) Electronically signed by : Yara Galan PT; Apr 21 2019 2:40PM EST Normal [facility] PT Progress Noteon 0 PT Progress Note Therapy Diagnosis Assessed Gait, antalgic (781.2) (R26.89) Acute right-sided low back pain without sciatica (724.2) (M54.5) Insurance Insurance reviewed Visit number: 2 Authorization not required after evaluation 04/27 visit [facility] [place]; 60 visit max Evaluating Physical Therapist: DANNY KimT, OCS . Subjective Patient reports: Patient reports he feels traction helped to reduce his LB pain. Reports LB pain 7/10 and into R LE to his toes with numbness and tingling. Reports increase in pain this morning due to sitting in dentist chair for exam. Home program performing as directed: Yes. Precautions: LATEX ALLERGY. Treatment Time in clinic started at 2:28 pm Time in clinic ended at 3:23 pm Total time in clinic is 55 minutes. Total timed code time is 48 minutes. Therapeutic exercise (43627): timed minutes 38, units 3 . LATEX ALLERGY prone laying x2' prone prop on elbows x2' prone press ups 2x10 hip extension in prone 2x10 B (N) alt UE and LE lifts in prone x10 (N) TA contraction plantigrade 3 hold x10 (N) bridge 2x10 (N) LTR x10 (N) hip flexor stretch 2x30 B (N) HS stretch seated 5x10 R hold (N) plantigrade hip extension x10 (N) plantigrade hip abd x10 (N) rows LATEX FREE purple band 2x10 (N) shoulder extension LATEX FREE purple band 2x10 (N). Modalities: untimed minutes 10, units 1 . lumbar mechanical traction 110# intermittent, max 110#, min 50#, on 40 /off 10 x10'. mechanical traction (63301) lumbar. Assessment Decreased heel strke and stance phase with R EL observed with gait back to aguilar. Fair TA contraction palpated with some RA compensation. Experienced L LE cramp with bridge. Completing HS stretch in sitting, min range with R LE with increased tingling into toes following stretch, decreased HS length noted with knee remaining flexed during stretch. Plan Planned interventions include: education/instruction, home program, manual therapy, mechanical traction and therapeutic exercises. Goals: Goals set and discussed today. In weeks, ARMANDO CHATTERJEE will achieve the following goals: 1. Patient will be independent with the HEP to manage symptoms 2. Patient will demonstrate normal gait pattern without assistive device, by week 2 Activity Limitation: 3. Patient to have a score on modified Oswestry disability Index of <=15%, by week 4 , 4. Patient will demonstrate full and painfree lumbar AROM in all planes , by week 4 , 5. Patient to report LE symptoms <=2/10 pain level, by week 4 Frequency and duration: 2 time(s) a week, for 4 weeks, for 8 visits. Potential to achieve rehab goals is good Continue with extension bias core and LE strengthening and mechanical traction as needed to improve ease with ADL's and gait mechanics. . Progress with POC, as tolerated. Signatures Electronically signed by : Leonela Mason FISH HOUSE WORKER; Apr 16 2019 4:06PM EST (Author) Electronically signed by : Yara Galan, PT; Apr 17 2019 9:11AM EST [facility] PT Initial Evaluationon 03-20 PT Initial Evaluation Reason For Visit Initial Evaluation . Acute midline LBP with RLE sciatica. Referred by: Bogdan Funk CNP Subjective Current Episode of Functional Impairment and/or Pain Date of onset: 03/14/20 Mechanism of Injury: fall . l on his tailbone about 1 month ago in his garage when stepping on something slippery. Went to chiropractor a few times, but no improvement. Had an injection to buttock and it helped with his back pain, but now he has RLE pain. Takes Gabapentin, Melatonin, Ibuprofen. He had a lumbar surgery a few years ago to remove a bone spur from a foramen. Had c5-7 fusion and C6-7 has a plate hardware. Pain: Patient reports numbness, sharp pain and tingling. Location: 3/10 mid/right LBP, R buttock, to lateral calf, and numbness in his foot and mid 3 toes. His pain is constant. Exacerbating Factors: rest, sitting . lying down. Relieving Factors: walking . after walking 15 min. Medical Screening: No signs of domestic/child or elder abuse . Fall risk Initial Fall Risk Screening: ARMANDO has fallen in the last 6 months. His fall resulted in the following injury: . ARMANDO does not have a fear of falling. He does not need assistance with sitting, standing or walking. Does not need assistance walking in his home. He does not need assistance in an unfamiliar setting. The patient is not using an assistive device. Medical screening assessed. 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 Functional limitations: participation in home management . able to do but it's painful. Work Status: unemployed. Patient Awareness: Patient is aware of his diagnosis and prognosis. Current Medical Management: diagnostic tests: . had lumbar XRay. Patient stated goal(s) for treatment include: relieving pain , walking with a normal gait , reducing symptoms and returning to regular activity levels . able to walk without pain on initial steps, awake without LBP. Living Environment: reviewed and no concern, single story home . able to do basement stairs. Sleep Posture: left side. Exercise: He does not exercise. Personal Factors That May Impact Care: . h/o LBP and prior lumbar surgery, h/o c-spine fusions. Baseline Function - Independent: Currently Independent with all activities. Precautions: none. Objective Ortho Standing posture: flat lumbar spine, no shift Gait: antalgic with initial steps, then improves; mild RLE circumduction, slight left lat trunk shift Lumbar AROM: Flexion: no change with reps Ext: 75%, no change with reps Prone EXT: 75%, equivocal, no change in N/T in foot, possible decrease in lat foot pain Side glide: (+) R buttock pain with glide towards left LE myotomes: 5/5 BLEs LE reflexes: patella, achilles intact BLEs Palpation: lumbar muscles WNL, Joint mobility: MOD stiffness and concordant buttock pain at R L5-S1 and sacral PA, mild stiffness R L3-4, L4-5 RLE traction in prone: pt reports decrease LBP and good stretch Oswestry LBP: 28% . Assessment Patient presented to PT with acute LBP with RLE pain and numbness/tingling. He presents with intact LE reflexes and LE myotomes. Patient presents with an extension preference of motion, and symptoms are aggravated with sitting and in the mornings. He responded well to mechanical traction today with improved standing posture and initial gait. The patient will benefit from skilled PT intervention to address the above stated impairments and assist the patient in maximizing their functional level. Clinical Presentation: Evolving with changing characteristics. Level of Complexity: moderate Problem List: activity limitations, ADLs/IADLs/self care skills, decreased functional level, flexibility, gait/locomotion, pain, range of motion/joint mobility and strength. Therapy Diagnosis Assessed Acute right-sided low back pain without sciatica (724.2) (M54.5) Gait, antalgic (781.2) (R26.89) Treatment Time in clinic started at 1305 Time in clinic ended at 1405 Total time in clinic is 60 minutes. Total timed code time is 60 minutes. Treatment Performed Today:. Eval performed, HEP instructed, mechanical lumbar traction 110 lbs intermittent, max 110, min 50 lbs, on 40 sec, off 10 sec x 10 minutes. Response to treatment: decreased pain, improved gait and improved knowledge and understanding of condition. Patient was able to complete today's treatment with ease. Evaluation Code: 20689 PT Eval: Mod Complexity, 40 min(s). UnTimed: 64793 Mechanical Traction, 10 min(s), 1 unit(s). Resources provided today: home program (scanned) and education Education Provided: home exercise program and Goal of symptom centralization. Information communicated to patient. Response to education: verbalized understanding and demonstrated understanding. Preferred learning method: demonstration and performance. Access Code: [email or web address] URL: [email or web address] Date: 04/14/2019 Prepared by: Yara Galan Exercises Prone Press Up on Elbows- 10 reps- 1 sets- 10 sec hold - 2x daily- 7x weekly Prone Press Up- 10 reps- 1 sets- 10 sec hold- 2x daily- 7x weekly Lateral Shift Correction at Wall- 10 reps- 1 sets- 3x daily- 7x weekly Standing Lumbar Extension- 10 reps- 1 sets- 8x daily- 7x weekly Lumbar traction as above. Plan of Care Planned interventions include: education/instruction, home program, manual therapy, mechanical traction and therapeutic exercises. Goals: Goals set and discussed today. In weeks, ARMANDO CHATTERJEE will achieve the following goals: 1. Patient will be independent with the HEP to manage symptoms 2. Patient will demonstrate normal gait pattern without assistive device, by week 2 Activity Limitation: 3. Patient to have a score on modified Oswestry disability Index of <=15%, by week 4 , 4. Patient will demonstrate full and painfree lumbar AROM in all planes , by week 4 , 5. Patient to report LE symptoms <=2/10 pain level, by week 4 Frequency and duration: 2 time(s) a week, for 4 weeks, for 8 visits. Potential to achieve rehab goals is good Plan of care was developed with input and agreement by the patient. Insurance Insurance reviewed Visit number: 1 Authorization not required after evaluation 03/27 visit [facility] [place]; 60 visit max Evaluating Physical Therapist: Yara Galan DPT, MAINOR . Normal [facility] CT BRAIN WO IVCONon 11-29-19 CT BRAIN WO IVCON * * *Final Report* * *DATE OF EXAM: Nov 28 2017 9:22AM [facility] 0504 - CT BRAIN WO IVCON / REASON: Other hydrocephalus * * * * Physician Interpretation * * * * EXAMINATION: CTA HEAD W IVCON, CT BRAIN WO IVCONCLINICAL HISTORY: Venous Thrombosis (accession [id number]), Hydrocephalus (accession [id number])TECHNIQUE: Spiral high resolution axial images were obtained through the head following bolus administration of intravenous contrast for CT angiography. The data was subsequently post-processed utilizing 3D multi-planar reconstructions, 3D maximum intensity projections, and a tissue segmentation algorithm at a separate workstation under physician supervision.MQ: CTAHN_3Contrast: 80 mL Omnipaque 350 IVDose-Length Product (DLP): 1330 mGy*cm.CT Dose Reduction Employed: Iterative reconCOMPARISON: Intracranial MR venogram from 10/31/2017.RESULT:BRAIN:T here is a right-sided ventriculostomy catheter with the tip in the left caudothalamic groove. Shunt catheter is radiographic intact. Also noted are postoperative changes of the left occipital craniotomy.There is no evidence of an acute intracranial hemorrhage or infarct. There is mild diffuse volume loss.There is cysts CSF collection dorsal to the left cerebellar hemisphere measuring approximately 10 mm at its deepest point.Evaluation of the individual slices of the CTA demonstrates no evidence of an acute stroke. ASPECT Score = 10Hemorrhage: No evidence of acute intracranial hemorrhage. ECASS hemorrhagic transformation score: Not ApplicableSpot Sign Presence: Not ApplicableSpot Sign Number: Not ApplicableNECK:Soft tissues: The soft tissue planes are maintained throughout. No evidence of a soft tissue mass in the neck or superior mediastinum. No significant lymphadenopathy is seen.Spine: Alignment is normal. degenerative changes are present.Lung apices: The visualized lung apices are clear.CT ARTERIOGRAM:Intracranial Circulation:Anterior Circulation: Carotid siphons are normal in caliber as are the anterior and middle cerebral arteries. No focal stenosis or aneurysm.Vertebrobasilar Circulation: The intracranial vertebral arteries are patent. Right vertebral artery is dominant. Basilar trunk and posterior cerebral arteries are normal in caliber.CT VENOGRAM:Intracranial circulation: the left proximal transverse sinus adjacent to the left occipital craniotomy is absent. The torcula, right transverse sinus, bilateral sigmoid sinuses and superior sagittal sinus as well as the gyrus rectus and vein of Abdiel and internal cerebral veins show normal opacification.IMPRESSION: With the exception of the proximal left transverse sinus adjacent to the craniotomy the dural venous sinuses show normal opacification. Specifically there is normal opacification of the spur sagittal sinus on this examination.Intracranial CTA is unremarkable.Transcriptio nist: PSCB Transcribe Date/Time: Nov 28 2017 9:31ADictated by : DANA DAVENPORT MDThis examination was interpreted and the report reviewed and electronically signed by: DANA DAVENPORT MD on Nov 28 2017 9:50AM [id number] Normal [facility] CTA HEAD W IVCONon 8 CTA HEAD W IVCON * * *Final Report* * *DATE OF EXAM: Nov 28 2017 9:22AM [facility] 0022 - CTA HEAD W IVCON / REASON: Intracranial and intraspinal phlebitis and thrombophlebitis * * * * Physician Interpretation * * * * EXAMINATION: CTA HEAD W IVCON, CT BRAIN WO IVCONCLINICAL HISTORY: Venous Thrombosis (accession [id number]), Hydrocephalus (accession [id number])TECHNIQUE: Spiral high resolution axial images were obtained through the head following bolus administration of intravenous contrast for CT angiography. The data was subsequently post-processed utilizing 3D multi-planar reconstructions, 3D maximum intensity projections, and a tissue segmentation algorithm at a separate workstation under physician supervision.MQ: CTAHN_3Contrast: 80 mL Omnipaque 350 IVDose-Length Product (DLP): 1330 mGy*cm.CT Dose Reduction Employed: Iterative reconCOMPARISON: Intracranial MR venogram from 10/31/2017.RESULT:BRAIN:T here is a right-sided ventriculostomy catheter with the tip in the left caudothalamic groove. Shunt catheter is radiographic intact. Also noted are postoperative changes of the left occipital craniotomy.There is no evidence of an acute intracranial hemorrhage or infarct. There is mild diffuse volume loss.There is cysts CSF collection dorsal to the left cerebellar hemisphere measuring approximately 10 mm at its deepest point.Evaluation of the individual slices of the CTA demonstrates no evidence of an acute stroke. ASPECT Score = 10Hemorrhage: No evidence of acute intracranial hemorrhage. ECASS hemorrhagic transformation score: Not ApplicableSpot Sign Presence: Not ApplicableSpot Sign Number: Not ApplicableNECK:Soft tissues: The soft tissue planes are maintained throughout. No evidence of a soft tissue mass in the neck or superior mediastinum. No significant lymphadenopathy is seen.Spine: Alignment is normal. degenerative changes are present.Lung apices: The visualized lung apices are clear.CT ARTERIOGRAM:Intracranial Circulation:Anterior Circulation: Carotid siphons are normal in caliber as are the anterior and middle cerebral arteries. No focal stenosis or aneurysm.Vertebrobasilar Circulation: The intracranial vertebral arteries are patent. Right vertebral artery is dominant. Basilar trunk and posterior cerebral arteries are normal in caliber.CT VENOGRAM:Intracranial circulation: the left proximal transverse sinus adjacent to the left occipital craniotomy is absent. The torcula, right transverse sinus, bilateral sigmoid sinuses and superior sagittal sinus as well as the gyrus rectus and vein of Abdiel and internal cerebral veins show normal opacification.IMPRESSION: With the exception of the proximal left transverse sinus adjacent to the craniotomy the dural venous sinuses show normal opacification. Specifically there is normal opacification of the spur sagittal sinus on this examination.Intracranial CTA is unremarkable.Transcriptio nist: PSCB Transcribe Date/Time: Nov 28 2017 9:31ADictated by : DANA DAVENPORT MDThis examination was interpreted and the report reviewed and electronically signed by: DANA DAVENPORT MD on Nov 28 2017 9:50AM [id number] Normal [facility] NURSING PROGon 11-28-2017 Protein mass conc HNO ID: [id number] thor: Malini (Rn) Heather, VINODervice: RadiologyAuthor Type: Registered NurseType: Nursing Progress NoteFiled: 11/28/2017 9:11 AMNote Text: Radiology Service Progress NotePATIENT NAME: Armando ChatterjeeMRN: [id number] OF SERVICE: November 28, 2017TIME: 9:03 AMPATIENT WEIGHT: 218 LBSPATIENT IDENTITY VERIFICATION COMPLETED USING TWO (2) METHODS: Patientconfirmed name verbally and Date of .PATIENT GENDER DATA: MaleCONTRAST INDUCED NEPHROPATHY RISK FACTORS: Not applicableCREATININE: No results found for: CREAT, EGFROTH, EGFRAAP.O.C.T. RESULTS: N/A November 28, 2017TREATMENT: No Hydration needed.ALLERGIES: Reviewed and unchangedCONTRAST ALLERGY: NO.IV SITE: Ambulatory: A peripheral IV was started in the Rightantecubital site with a diffusics 20 gauge. and A Saline lock was insertedper protocolIV SITE APPEARANCE: Clean,Dry and IntactSIGNED BY: MALINI TAVERA RNSeptember 2017 9:03 AM [facility] PROGRESSon 11-28-2017 Protein mass conc HNO ID: [id number] thor: Jasmyne (Ct) TERESA Fatimaervice: RadiologyAuthor Type: TechnicianType: Progress NotesFiled: 11/28/2017 9:23 AMNote Text: Radiology Service Progress NotePATIENT NAME: Armanod ChatterjeeMRN: [id number] OF SERVICE: November 28, 2017TIME: 9:23 AMPATIENT IDENTITY VERIFICATION COMPLETED USING TWO (2) METHODS: Patientconfirmed name verbally and ID band matches..PATIENT GENDER DATA: MalePATIENT RELEVANT IMPLANT DATA REVIEWED: Not ApplicableRADIOLOGY DEPARTMENT: CT; Exam(s) Completed: Brain and CTA BrainPERIPHERAL IV DATA: Site assessment: Clean,Dry and Intact, Sitedisposition DiscontinuedSIGNED BY: Jasmyne Fatima CTSeptember 2017 9:23 AM [facility] LIPID PANELon 07-19-2017 LIPID PANEL [id number] ed At: 01[facility] [place], [place] [id number] Hans [id number]: Antibiotic VIANEY InterpretationGLUCOSE 93BUN BLOOD 18CREATININE, SERUM 0.96EGFR IF NONAFRICN AM 90EGFR AFRICANAMERICAN 104BUN / CREAT RATIO 19SODIUM 141POTASSIUM 4.6CHLORIDE 102CARBON DIOXIDE 20CALCIUM 9.4 [facility] Comment on above: Performed By: #### L AB18 ####[facility], Progress Noteson 07-19-2017 Progress Notes Encounter Department : [facility]Progress Notes by JOLANTA Drew at 07/19/2017 9:00 AMAuthor: Thao Sosa CCMAService: (none)Author Type: Certified Clinical Medical AssistantFiled: 07/20/2017 6:17 PMEncounter Date: 07/19/2017Status: SignedEditor: JOLANTA Drew (Certified Clinical Technical Director)Notified [facility] Progress Notes Encounter Department : [facility]AREProgress Notes by Enrico Pugh MD at 07/19/2017 9:00 AMAuthor: GONZÁLEZ Lynchervice: (none)Author Type: PhysicianFiled: 07/20/2017 6:10 PMEncounter Date: 07/19/2017Status: SignedEditor: Enrico Pugh MD (Physician)Labs show cholesterol is too high with LDL at 175,( goal is under 130). Glucose is normal.Recommend starting Lipitor and we will call in the prescription, Recehck labs in 6 months. [facility] Progress Notes Encounter Department : [facility]AREProgress Notes by Enrico Pugh MD at 07/19/2017 9:00 AMAuthor: GONZÁLEZ Lynchervice: (none)Author Type: PhysicianFiled: 07/19/2017 9:31 AMEncounter Date: 07/19/2017Status: SignedEditor: Enrico Pugh MD (Physician)Subjective:Pat ient ID: Armando Chatterjee is a 52 y.o. male.Chief ComplaintPatient presents with -Annual ExamAnnual exam.Neurology Dr Romo sending to [facility] for ongoing headaches. Past 18 months, History ofbrain cyst, Recent neck surgery Dr Reyes did not resolve the headaches,Still working.HRA done. Advanced directive UTD.Review of SystemsConstitutional: Negative for fatigue and fever.HENT: Negative for congestion, dental problem, ear discharge, ear pain, hearing loss, postnasaldrip, sinus pressure and tinnitus.Eyes: Negative for pain, discharge, redness and visual disturbance.Respiratory: Negative for cough, shortness of breath and wheezing.Cardiovascular: Negative for chest pain, palpitations and leg swelling.Gastrointestinal : Negative for abdominal pain and anal bleeding.GERD not active.Musculoskeletal: Positive for back pain and neck pain.Skin: Negative.Neurological: Positive for headaches.Psychiatric/Beh avioral: Negative for dysphoric mood. The patient is not nervous/anxious.Objective :Physical ExamConstitutional: He is oriented to person, place, and time. He appears well-developed andwell-nourished.HENT:He ad: Normocephalic and atraumatic.Right Ear: External ear normal.Left Ear: External ear normal.Nose: Nose normal.Mouth/Throat: Oropharynx is clear and moist.Eyes: Conjunctivae and EOM are normal. Pupils are equal, round, and reactive to light. Right eyeexhibits no discharge. Left eye exhibits no discharge. No scleral icterus.Neck: Neck supple. No thyromegaly present.Cardiovascular: Normal rate, regular rhythm, normal heart sounds and intact distal pulses. Examreveals no gallop and no friction rub.No murmur heard.Pulmonary/Chest: Effort normal and breath sounds normal. No stridor. No respiratory distress. Hehas no wheezes. He has no rales.Abdominal: Soft. Bowel sounds are normal. He exhibits no mass. There is no tenderness.Musculoskeleta l: Normal range of motion. He exhibits no edema.Spinal ROM is good.Lymphadenopathy: He has no cervical adenopathy.Neurological: He is alert and oriented to person, place, and time.Skin: Skin is warm and dry.Psychiatric: He has a normal mood and affect. Judgment normal.Nursing note and vitals reviewed.Assessment and Plan:ICD-10-CM1.Routine general medical examination at a health care yclmvvjaK27.00Lipid PanelBasic Metabolic Panel2.RIGGING FOREMAN (ventriculoperitoneal) shunt auftczF75.23.HNP (herniated nucleus pulposus), dugitrpuQ19.204.HNP (herniated nucleus pulposus), ofpawhW94.26Persistent headaches.Tertiary evaluation is underway, History of multiple spinal and brain problems and doing weel with full function,Not on medications.C-scope is UTD,Nominal exam,All pertinent side effects, risks, benefits and precautions of suggested treatments were discussedin detail. Mr. Chatterjee understands and agrees with above treatment plan. Normal [facility] CT-HEAD W CONTRASTon 018 CT-HEAD W CONTRAST CT OF THE HEAD WITH CONTRASTORDER DATE: 04/09/2017 10:25 AMClinical indication: R51: Headache History: Nonintractable headache, unspecified chronicity pattern, unspecified headache type, Check Shunt, . Number of Series/Images: 1. 50 OMNIPAQUE 350 mg/mL injection. Comparison: 12/01/2016Technique: Routine axial CT images were obtained through the head post intravenous contrast injection. CT radiation dose optimization techniques (automated exposure control, use of iterative reconstruction techniques, or adjustment of the mA and/or kV according to patient size) were used to limit patient radiation dose. Findings: Right frontal approach ventriculostomy shunt catheter crosses midline with the tip in the anterior horn of the left lateral ventricle similar to the prior exam. Ventricular size is stable without hydrocephalus. No intracranial hemorrhage, subfalcine herniation, or focal mass effect. No abnormal enhancement noted. No vasogenic edema. No gross calvarial fracture. There is a left occipital osseous defect similar to the prior exam. Mild mucosal thickening noted within the bilateral ethmoid, left sphenoid, and left maxillary sinuses.IMPRESSION:IMPRES SAWYER:1. Stable CT head compared to 12/01/2016 without acute interval changeElectronically Signed by: Rikki Lou DO, 04/09/2017 11:32 AM Normal [facility] MRI-ANGIO HEAD WO CONTRASTon 12-06-2016 MRI-ANGIO HEAD WO CONTRAST EXAM: MRI-ANGIO HEAD WO CONTRAST DATE OF EXAM: 12/06/2016 8:56 AMDEMOGRAPHICS: 51 years old Male CLINICAL STATEMENT: R51: Headache History: constant headaches since Oct; hx of shunt placement. Number of Series/Images: 2. COMPARISON: CT head 12/01/2016. MRI brain 03/03/2016FINDINGS:Mild motion artifact is present on some of the obtained images, degrading image quality. The examination remains diagnostic.POSTERIOR CIRCULATIONDistal vertebral arteries: Patent. The right vertebral artery is dominant.Basilar artery: Patent.Posterior cerebral arteries: Patent.Posterior communicating arteries: Not seen.ANTERIOR CIRCULATIONInternal carotid arteries: Patent.Middle cerebral arteries: Patent.Anterior cerebral arteries: Patent.Anterior communicating artery: Patent.No focal stenosis, branch occlusion, or aneurysm is seen. A right frontal ventricular shunt catheter is in place, crossing midline and terminating at the body of the left lateral ventricle. The ventricles are stable in size and configuration. No hydrocephalus. No focal stenosis, branch occlusion, or aneurysm. 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 Number of Series/Images: 2. COMPARISON: MR the brain dated 03/03/2016Technique: Multiple axial images of the brain were obtained without contrast. CT radiation dose optimization techniques (automated exposure control, and use of iterative reconstruction techniques, or adjustment of the mA and/or kV according to patient size) were used to limit patient radiation dose.FINDINGS:There are no areas of altered density to suggest the presence of a major vessel infarct, hemorrhage or mass lesion. The fourth ventricle is in the midline and there is no evidence of hydrocephalus.Right frontal ventriculostomy catheters in position and unchanged. Ventricular size is unchanged as well. No evidence of an acute intracranial process when compared to the prior examinations. The right frontal ventriculostomy catheters in position and unchanged in the ventricular size is stable.This dictation was created with voice recognition software. While attempts have been made to review the dictation as it is transcribed, on occasion the spoken word can be misinterpreted by the technology leading to omissions or inappropriate words, phrases or sentences.Electronically Signed by: Colt Clarke MD, 12/01/2016 2:12 PM [facility] Progress Noteson 12-01-2016 Progress Notes Encounter Department : NEUROSURGERY, INCProgress Notes by Kathleen Reyes MD at 12/01/2016 11:30 AMAuthor: GONZÁLEZ Sultanaervice: (none)Author Type: PhysicianFiled: 12/01/2016 10:37 PMEncounter Date: 12/01/2016Status: SignedEditor: Kathleen Reyes MD (Physician)Office Progress NoteChief ComplaintPatient presents with -Iuomqq-[id number] Anterior cervical discectomy and fusionMedications:Current Outpatient PrescriptionsMedicationSi gDispenseRefill -CALCIUM CARBONATE (TUMS PO)Take 3 tablets by mouth as needed. -DIETARY SUPPLEMENT POTake by mouth. bioteA D K 10 -DOCOSAHEXANOIC ACID/EPA (FISH OIL PO)Take 1,000 mg by mouth. -HYDROcodone-acetaminophe n (NORCO) 5-325 mg tabletTake 1-2 tablets by mouth every 8 hours asneeded for Pain. Indications: PAIN45 tablet0 -IODINE POTake 12.5 mg by mouth. -methocarbamol (ROBAXIN) 750 mg tabletTake 1 tablet by mouth every 8 hours.60 tablet0 -Thyroid, Pork, (NATURE-THROID) 65 mg TabTake 65 mg by mouth daily. -topiramate (TOPAMAX) 25 mg tabletTake 25 mg by mouth 2 times daily. -UNABLE TO BEDC598 mg. KATERYNA Amadro current facility-administered medications for this visit.Allergies:Allergies AllergenReactions -LatexOther (See Comments)Burning sensation -Shellfish DerivedDiagnosed from blood workBP 112/70 Ht 5' 9 (1.753 m) Wt 198 lb (89.8 kg) BMI 29.24 kg/u2Wpoxtjp NoteBlood Thinners: VitaminsHeart Implants: NoneTesting: Xray CSP 12/01/2016Treatments: NoneComments: None 51-year-old male presents to my office for routine postoperative evaluation. Patient underwentC6-7 anterior cervical discectomy and fusion for adjacent level disease. Patient had greatrecovery, his x-rays demonstrate appropriate process of fusion with intact hardware. On the examhe has good strength and sensation upper and lower extremities. His new concern today ispersistent headache that wakes him up in the morning, headaches been persistent now for 3 weekswithout relief on medications. Patient has history of hydrocephalus and been shunted. Thesymptoms that he is describing is concerning. He also reports visual decline, and nausea. Toevaluate his shunt and rule out hydrocephalus head CT will be ordered in urgent fashion, shuntseries was also be ordered. If necessary I will adjust programmable valve. Patient was instructedto return for evaluation after the images obtained.After the images obtained patient return to my office for reevaluation. Head CT demonstratedappropriate ventricular size without evidence of hydrocephalus. Shunt series demonstrated expectedsetting at 8o mm H2OMy recommendation is to continue with vascular images as ordered per primary care. No adjustmentto the shunt was made. Patient was instructed to call office if he develops any new symptoms, Orif headache persist.This chart entry has been completed using [employer] Dictation Software. While attempts havebeen made to ensure accuracy, certain words and phrases may not be entered as intended. Normal [facility] XR-C SPINE 2/3 VIEWon 2016 XR-C SPINE 2/3 VIEW A result will not be generated for this exam.PROCEDURE: XR-C SPINE 2/3 VIEWDate of Service 12/01/2016 10:50 AMDEMOGRAPHICS: 51 years old Male INDICATION: Z09: Encounter for follow-up examination after completed treatment for conditions other than malignant neoplasm History: 6 mth post op cervical surgery. Number of Series/Images: 2. COMPARISON: No existing relevant imaging study corresponding to the same anatomical region is available.FINDINGS:AP and lateral views of the cervical spine were done. An anterior stabilization plate is again demonstrated bridging C6 and C7 with hardware unchanged in appearance without evidence of loosening or fracture of the metallic hardware. Radiolucent disc spacer overlies the C6-C7 disc space, also unchanged. Again demonstrated is evidence of previous interbody fusion of C5 and C6 which is unchanged in appearance.There is no prevertebral soft tissue swelling.The remaining vertebral bodies are of normal height and the remaining disc spaces are preserved.1. Status post anterior fusion from C5 through C7 as described above, without significant interval change. This dictation was created with voice recognition software. While attempts have been made to review the dictation as it is transcribed, on occasion the spoken word can be misinterpreted by the technology leading to omissions or inappropriate words, phrases or sentences.Electronically Signed by: Amy Mcmanus MD, 12/01/2016 1:38 PM [facility] XR-CHEST 1 VIEWon 12-01-2016 XR-CHEST 1 VIEW ORDER DATE: 7 2:15 PMINDICATION: Z98.2: Presence of cerebrospinal fluid drainage device DEMOGRAPHICS: 51 years old Male TECHNIQUE: Single AP portable chest radiograph was obtained.COMPARISON: 02/23/2016FINDINGS: Lung haines are clear without consolidation, effusion, or pneumothorax. Cardiac size is within normal limits. Trachea is midline. Mild degenerative changes are seen within the thoracic spine. There is evidence for prior lower cervical fusion with anterior fixation plate and screws. Right ventriculoperitoneal shunt catheter seen in stable position.1. Nonacute chestElectronically Signed by: Rikki Lou DO, 12/01/2016 3:26 PM [facility] XR-FLUORO LESS THAN 1HR W/RA Don 12-01-2016 XR-FLUORO LESS THAN 1HR W/RAD PROCEDURE: XR-FLUORO LESS THAN 1HR W/RADDATE OF EXAM: 12/01/2016 2:38 PMDEMOGRAPHICS: 51 years old Male INDICATION: G91.2: (Idiopathic) normal pressure hydrocephalus History: check shunt settings . Number of Series/Images: 1. Fluoro time: .1 min. Fluoro mode: Normal. Radiation Dose: 7.89 Other (Specify in comment field). COMPARISON: Skull radiograph 02/23/2016FINDINGS: Fluoroscopy was utilized to optimize tube angle to evaluate the programmable shunt catheter pressure we'll.Single spot image was obtained demonstrating a Codman Hakim shunt catheter set at 70 mm.Programmable shunt catheter set at 70 mmTotal fluoroscopy time was 0.1 minutes.Radiation dose: 7.89 mGyNumber of Images: 1Electronically Signed by: Josep Kirkland MD, 12/01/2016 2:52 PM [facility] Vital Signs Date Time Vital Sign Value Performing Clinician Facility 01-08-2024 10:55-0400 Diastolic blood pressure 72 mm[Hg] Louis Thomae DO Work Phone: [facility] 01-08-2024 10:55-0400 Heart rate 68 /min Louis Thomae DO Work Phone: [facility] 01-08-2024 10:55-0400 Respiratory rate 16 /min Louis Thomrip DO Work Phone: [facility] 01-08-2024 10:55-0400 SaO2% (BldA) [Mass fraction] 95 % Louis Thomae DO Work Phone: [facility] 01-08-2024 10:55-0400 Systolic blood pressure 124 mm[Hg] Louis Thomae DO Work Phone: [facility] 01-08-2024 10:10-0400 Body temperature 97.5 [degF] Louis Thomae DO Work Phone: [facility] 01-08-2024 09:12-0400 Body height 175.3 cm Louis Carrillo DO Work Phone: [facility] 01-08-2024 09:12-0400 Body mass index (BMI) [Ratio] 33.67 kg/m2 Louis Carrillo DO Work Phone: [facility] 01-08-2024 09:12-0400 Body weight 103.42 kg Louis Carrillo DO Work Phone: [facility] 10-10-2023 12:38-0400 Body height 175.3 cm Christine Jarquin SPECIFICATION MANAGER-[employer]ESPERSON [employer] Work Phone: [facility] 10-10-2023 12:38-0400 Body mass index (BMI) [Ratio] 33.2 kg/m2 Christine Jarquin SPECIFICATION MANAGER-[employer] Work Phone: [facility] 10-10-2023 12:38-0400 Body temperature 97.81 [degF] Christine Jarquin SPECIFICATION MANAGER-[employer] Work Phone: [facility] 10-10-2023 12:38-0400 Body weight 101.97 kg Christine Jarquin SPECIFICATION MANAGER-[employer] Work Phone: [facility] 10-10-2023 12:38-0400 Diastolic blood pressure 60 mm[Hg] Christine Jarquin SPECIFICATION MANAGER-[employer] Work Phone: [facility] 10-10-2023 12:38-0400 Heart rate 72 /min Christine Jarquin SPECIFICATION MANAGER-[employer] Work Phone: [facility] 10-10-2023 12:38-0400 Systolic blood pressure 123 mm[Hg] Christine Jarquin SPECIFICATION MANAGER-[employer] Work Phone: [facility] 01-08-2023 13:19-0400 Body mass index (BMI) [Ratio] 31.01 kg/m2 Christine Jarquin SPECIFICATION MANAGER-[employer] Work Phone: [facility] 01-08-2023 13:19-0400 Body temperature 97.7 [degF] Christine Jarquin SPECIFICATION MANAGER-[employer] Work Phone: [facility] 01-08-2023 13:19-0400 Body weight 95.25 kg Christine Jarquin SPECIFICATION MANAGER-[employer] Work Phone: [facility] 01-08-2023 13:19-0400 Diastolic blood pressure 61 mm[Hg] Christine Jarquin SPECIFICATION MANAGER-[employer] Work Phone: [facility] 01-08-2023 13:19-0400 Heart rate 67 /min Christine Jarquin SPECIFICATION MANAGER-[employer] Work Phone: [facility] 01-08-2023 13:19-0400 Systolic blood pressure 118 mm[Hg] Christine Jarquin SPECIFICATION MANAGER-[employer] Work Phone: [facility] 11-08-2022 12:32-0400 Body height 175.3 cm Christine Jarquin SPECIFICATION MANAGER-[employer] Work Phone: [facility] 11-08-2022 12:32-0400 Body mass index (BMI) [Ratio] 31.22 kg/m2 Christine Jarquin SPECIFICATION MANAGER-[employer] Work Phone: [facility] 11-08-2022 12:32-0400 Body temperature 97.9 [degF] Christine Jarquin SPECIFICATION MANAGER-[employer] Work Phone: [facility] 11-08-2022 12:32-0400 Body weight 95.89 kg Christine Jarquin SPECIFICATION MANAGER-[employer] Work Phone: [facility] 11-08-2022 12:32-0400 Diastolic blood pressure 62 mm[Hg] Christine Jarquin SPECIFICATION MANAGER-[employer] Work Phone: [facility] 11-08-2022 12:32-0400 Heart rate 65 /min Christine Jarquin SPECIFICATION MANAGER-[employer] Work Phone: [facility] 11-08-2022 12:32-0400 Systolic blood pressure 111 mm[Hg] Christine Jarquin SPECIFICATION MANAGER-[employer] Work Phone: [facility] 10-16-2022 14:52-0400 Body height 175.3 cm Gerson Constable SPECIFICATION MANAGER-[employer] Work Phone: [facility] 10-16-2022 14:52-0400 Body mass index (BMI) [Ratio] 31.19 kg/m2 Gerson Constable SPECIFICATION MANAGER-[employer] Work Phone: [facility] 10-16-2022 14:52-0400 Body temperature 98.2 [degF] Gerson Constable SPECIFICATION MANAGER-[employer] Work Phone: [facility] 10-16-2022 14:52-0400 Body weight 95.8 kg Gerson Constable SPECIFICATION MANAGER-[employer] Work Phone: [facility] 10-16-2022 14:52-0400 Diastolic blood pressure 65 mm[Hg] Gerson Constable SPECIFICATION MANAGER-[employer] Work Phone: [facility] 10-16-2022 14:52-0400 Heart rate 60 /min Gerson Constable SPECIFICATION MANAGER-[employer] Work Phone: [facility] 10-16-2022 14:52-0400 Respiratory rate 14 /min Gerson Constable SPECIFICATION MANAGER-[employer] Work Phone: [facility] 10-16-2022 14:52-0400 SaO2% (BldA) [Mass fraction] 96 % Gerson Constable SPECIFICATION MANAGER-[employer] Work Phone: [facility] 10-16-2022 14:52-0400 Systolic blood pressure 118 mm[Hg] Gerson Constable SPECIFICATION MANAGER-[employer] Work Phone: [facility] 10-16-2022 12:43-0400 Body height 175.3 cm Ade Us SPECIFICATION MANAGER-[employer] Work Phone: [facility] 10-16-2022 12:43-0400 Diastolic blood pressure 63 mm[Hg] Ade Us SPECIFICATION MANAGER-[employer] Work Phone: [facility] 10-16-2022 12:43-0400 Heart rate 80 /min Ade Us SPECIFICATION MANAGER-[employer] Work Phone: [facility] 10-16-2022 12:43-0400 Systolic blood pressure 110 mm[Hg] Ade Us SPECIFICATION MANAGER-[employer] Work Phone: [facility] 10-13-2022 16:00-0400 Diastolic blood pressure 70 mm[Hg] Ade Us SPECIFICATION MANAGER-[employer] Work Phone: [facility] 10-13-2022 16:00-0400 Heart rate 55 /min Ade Us SPECIFICATION MANAGER-[employer] Work Phone: [facility] 10-13-2022 16:00-0400 Systolic blood pressure 118 mm[Hg] Ade Us SPECIFICATION MANAGER-[employer] Work Phone: [facility] 10-13-2022 15:58-0400 Body height 175.3 cm Ade Us SPECIFICATION MANAGER-[employer] Work Phone: [facility] 10-13-2022 15:58-0400 Body mass index (BMI) [Ratio] 30.72 kg/m2 Ade Us SPECIFICATION MANAGER-SALESPERSON [employer] Work Phone: [facility] 10-13-2022 15:58-0400 Body weight 94.35 kg Ade Us SPECIFICATION MANAGER-SALESPERSON [employer] Work Phone: [facility] 09-13-2022 14:57-0400 Body height 175.3 cm Ade Us SPECIFICATION MANAGER-SALESPERSON [employer] Work Phone: [facility] 09-13-2022 14:57-0400 Body mass index (BMI) [Ratio] 31.38 kg/m2 Ade Us [facility] Work Phone: [facility] 09-13-2022 14:57-0400 Body weight 96.4 kg Ade Us [facility] Work Phone: [facility] 09-13-2022 14:57-0400 Heart rate 59 /min Ade Us [facility] Work Phone: [facility] 09-13-2022 14:57-0400 SaO2% (BldA) [Mass fraction] 96 % Ade Us [facility] Work Phone: [facility] 05-11-2022 12:18-0500 Body height 175.3 cm Josiane Cabrales MD Work Phone: [facility] Comment on above: verbal 05-11-2022 12:18-0500 Body mass index (BMI) [Ratio] 32.22 kg/m2 Josiane Cabrales MD Work Phone: [facility] 05-11-2022 12:18-0500 Body temperature 97.9 [degF] Josiane Cabrales MD Work Phone: [facility] 05-11-2022 12:18-0500 Body weight 98.97 kg Josiane Cabrales MD Work Phone: [facility] 05-11-2022 12:18-0500 Diastolic blood pressure 72 mm[Hg] Josiane Cabrales MD Work Phone: [facility] 05-11-2022 12:18-0500 Heart rate 83 /min Josiane Cabrales MD Work Phone: [facility] 05-11-2022 12:18-0500 Systolic blood pressure 128 mm[Hg] Josiane Cabrales MD Work Phone: [facility] 03-29-2022 15:24-0500 Body height 175.3 cm Simi Mcwilliams MD Work Phone: [facility] 03-29-2022 15:24-0500 Body mass index (BMI) [Ratio] 32.05 kg/m2 Simi Mcwilliams MD Work Phone: [facility] 03-29-2022 15:24-0500 Body temperature 98.29 [degF] Simi Mcwilliams MD Work Phone: [facility] 03-29-2022 15:24-0500 Body weight 98.43 kg Simi Mcwilliams MD Work Phone: [facility] 03-29-2022 15:24-0500 Diastolic blood pressure 71 mm[Hg] Simi Mcwilliams MD Work Phone: [facility] 03-29-2022 15:24-0500 Heart rate 65 /min Simi Mcwilliams MD Work Phone: [facility] 03-29-2022 15:24-0500 Respiratory rate 12 /min Simi Mcwilliams MD Work Phone: [facility] 03-29-2022 15:24-0500 SaO2% (BldA) [Mass fraction] 98 % Simi Mcwilliams MD Work Phone: [facility] 03-29-2022 15:24-0500 Systolic blood pressure 130 mm[Hg] Simi Mcwilliams MD Work Phone: [facility] 03-29-2022 13:15-0500 Body height 175.3 cm Martha Crain MD Work Phone: [facility] 03-29-2022 13:15-0500 Body mass index (BMI) [Ratio] 32.05 kg/m2 Martha Crain MD Work Phone: [facility] 03-29-2022 13:15-0500 Body weight 98.43 kg Martha Crain MD Work Phone: [facility] 01-20-2022 10:43-0400 Body height 175.3 cm Simi Mcwilliams MD Work Phone: [facility] 01-20-2022 10:43-0400 Body mass index (BMI) [Ratio] 32.62 kg/m2 Simi Mcwilliams MD Work Phone: [facility] 01-20-2022 10:43-0400 Body temperature 98.01 [degF] Simi Mcwilliams MD Work Phone: [facility] 01-20-2022 10:43-0400 Body weight 100.2 kg Simi Mcwilliams MD Work Phone: [facility] 01-20-2022 10:43-0400 Diastolic blood pressure 66 mm[Hg] Simi Mcwilliams MD Work Phone: [facility] 01-20-2022 10:43-0400 Heart rate 58 /min Simi Mcwilliams MD Work Phone: [facility] 01-20-2022 10:43-0400 Respiratory rate 18 /min Simi Mcwilliams MD Work Phone: [facility] 01-20-2022 10:43-0400 SaO2% (BldA) [Mass fraction] 97 % Simi Mcwilliams MD Work Phone: [facility] 01-20-2022 10:43-0400 Systolic blood pressure 109 mm[Hg] Simi Mcwilliams MD Work Phone: [facility] 01-03-2022 13:08-0400 Body height 175.3 cm Simi Mcwilliams MD Work Phone: [facility] 01-03-2022 13:08-0400 Body mass index (BMI) [Ratio] 33.45 kg/m2 Simi Mcwilliams MD Work Phone: [facility] 01-03-2022 13:08-0400 Body temperature 98.2 [degF] Simi Mcwilliams MD Work Phone: [facility] 01-03-2022 13:08-0400 Body weight 102.74 kg Simi Mcwilliams MD Work Phone: [facility] 01-03-2022 13:08-0400 Diastolic blood pressure 56 mm[Hg] Simi Mcwilliams MD Work Phone: [facility] 01-03-2022 13:08-0400 Heart rate 61 /min Simi Mcwilliams MD Work Phone: [facility] 01-03-2022 13:08-0400 Respiratory rate 16 /min Simi Mcwilliams MD Work Phone: [facility] 01-03-2022 13:08-0400 SaO2% (BldA) [Mass fraction] 98 % Simi Mcwilliams MD Work Phone: [facility] 01-03-2022 13:08-0400 Systolic blood pressure 121 mm[Hg] Simi Mcwilliams MD Work Phone: [facility] Encounters Encounter Date Encounter Type Care Provider Facility Start: 01-08-2024 End: 01-08-2024 Subsequent hospital visit by physician Louis Carrillo DO Work Phone: [facility] Comment on above: Gastroesophageal ref lux disease with esophagitis without hemorrhage Start: 01-08-2024 End: 01-08-2024 ambulatory LOUIS CARRILLO [facility] Start: 10-10-2023 End: 10-10-2023 Office outpatient visit 15 minutes Christine Jarquin SPECIFICATION MANAGER-SALESPERSON [employer] Work Phone: [facility] Comment on above: Migraine without aur a and without status migrainosus, not intractable (Primary Dx) Start: 01-08-2023 ambulatory [facility] Facility: [facility] Start: 01-08-2023 End: 01-08-2023 Office outpatient visit 15 minutes Christine Olmedo Britton SPECIFICATION MANAGER-SALESPERSON [employer] Work Phone: [facility] [place] Comment on above: Intractable chronic migraine without aura and without status migrainosus (Primary Dx); Cervicocranial syndrome; Dizziness and giddiness Start: 11-08-2022 ambulatory [facility] Facility: [facility] Start: 11-08-2022 End: 11-08-2022 Office outpatient visit 15 minutes Christine M Britton SPECIFICATION MANAGER-SALESPERSON [employer] Work Phone: [facility] [place] Comment on above: Intractable chronic migraine without aura and without status migrainosus (Primary Dx); Migraine with aura and without status migrainosus, not intractable; Cervicocranial syndrome Start: 10-16-2022 [facility] Facility: [facility] Start: 10-16-2022 End: 10-16-2022 Office outpatient visit 10 minutes Gerson Mabry SPECIFICATION MANAGER-SALESPERSON [employer] Work Phone: [facility] Comment on above: Arachnoid cyst (Prim aaron Dx) Start: 10-16-2022 ambulatory [facility] Facility: [facility] Start: 10-16-2022 End: 10-16-2022 Subsequent hospital visit by physician Ade Us SPECIFICATION MANAGER-S[employer]ESPERSON [employer] Work Phone: [facility] [place] Comment on above: Arrived Start: 10-13-2022 End: 10-13-2022 Subsequent hospital visit by physician Ade Us SPECIFICATION MANAGER-SALESPERSON [employer] Work Phone: [facility] [place] Comment on above: Arrived Start: 10-13-2022 ambulatory [facility] Facility: [facility] Start: 09-13-2022 ambulatory [facility] Facility: [facility] Start: 09-13-2022 End: 09-13-2022 Office outpatient new 45 minutes Ade Us SPECIFICATION MANAGER-SALESPERSON [employer] Work Phone: [facility] [place] Comment on above: Asymmetric SNHL (sen sorineural hearing loss) (Primary Dx); Imbalance; Pulsatile tinnitus of both ears; BPPV (benign paroxysmal positional vertigo), right Start: 08-07-2022 ambulatory CHRISTINE Honorio BRITTON Fac ility:[facility] Start: 06-08-2022 ambulatory Pat Up [facility] Work Phone: [facility] [place] Start: 06-08-2022 Patient encounter procedure Pat Up [facility] Work Phone: [facility] [place] Start: 05-11-2022 ambulatory [facility] Facility: [facility] Start: 05-11-2022 End: 05-11-2022 Office consultation new/estab patient 80 min Josiane Cabrales MD Work Phone: [facility] Comment on above: Intractable chronic migraine without aura and without status migrainosus (Primary Dx); Chronic daily headache; Migraine with aura and without status migrainosus, not intractable; Cervicocranial syndrome Start: 04-27-2022 ambulatory MARTHA CRAIN Facility: [facility] Start: 04-27-2022 End: 04-27-2022 Office outpatient visit 10 minutes Martha Crain MD Work Phone: [facility] [place] Comment on above: Migraine with aura a nd without status migrainosus, not intractable (Primary Dx) Start: 04-12-2022 ambulatory [facility]: [facility] Start: 04-12-2022 End: 04-12-2022 Office outpatient visit 15 minutes Martha Crain MD Work Phone: [facility] Comment on above: Primary insomnia (Pr imary Dx); Migraine with aura and without status migrainosus, not intractable Start: 03-29-2022 ambulatory SIMI MCWILLIAMS Facilit y:[facility] Start: 03-29-2022 End: 03-29-2022 Office outpatient visit 10 minutes Simi Mcwilliams MD Work Phone: [facility] Comment on above: S/P RIGGING FOREMAN shunt (Primar y Dx); IIH (idiopathic intracranial hypertension); Obstructive hydrocephalus Start: 03-29-2022 [facility] Facility: [facility] Start: 03-29-2022 End: 03-29-2022 Subsequent hospital visit by physician Martha Crain MD Work Phone: [facility] Comment on above: Arrived Start: 02-22-2022 ambulatory SIMI Montesinos y:[facility] Start: 02-22-2022 End: 02-22-2022 Office consultation new/estab patient 40 min Martha Crain MD Work Phone: [facility] [place] [facility] [place] Comment on above: Migraine with aura a nd without status migrainosus, not intractable (Primary Dx); Chronic daily headache Start: 01-20-2022 ambulatory SIMI Montesinos y:[facility] Start: 01-20-2022 End: 01-20-2022 Patient encounter procedure Simi Mcwilliams MD Work Phone: [facility] Comment on above: ERRONEOUS ENCOUNTER- -DISREGARD (Primary Dx) Start: 01-17-2022 ambulatory SIMI Montesinos y:[facility] Start: 01-03-2022 End: 01-03-2022 Subsequent hospital visit by physician Simi Mcwilliams MD Work Phone: [facility] [place] Comment on above: Arrived Start: 01-03-2022 End: 01-03-2022 Office outpatient visit 10 minutes Simi Mcwilliams MD Work Phone: [facility] Comment on above: Arachnoid cyst (Prim aaron Dx); S/P RIGGING FOREMAN shunt; Presence of cerebrospinal fluid drainage device Start: 05-14-2018 Patient encounter procedure Facility:[id number] Start: 11-28-2017 Patient encounter GUSTAVO Lovett ([place]- C) [facility] Start: 09-01-2017 End: 09-01-2017 Emergency department patient visit [facility] Facility:[facility] Start: 09-01-2017 Patient encounter procedure Facility:[id number] Start: 07-19-2017 End: 07-19-2017 Ambulatory [facility] Start: 04-09-2017 End: 04-10-2017 Ambulatory [facility] Start: 12-06-2016 End: 12-07-2016 Ambulatory [facility] Start: 12-01-2016 End: 12-02-2016 Ambulatory ENRICO PUGH [facility] Start: 12-01-2016 End: 12-01-2016 Ambulatory KATHLEEN REYES [facility] Start: 12-01-2016 End: 12-01-2016 Ambulatory KATHLEEN REYES [facility] Procedures Date Procedure Procedure Detail Performing Clinician Start: 01-08-2024 Egd transoral biopsy single/multiple Louis R Gerardo DO Work Phone: Start: 01-08-2024 PULSE OXIMETRY, SPOT Da le R Thomae DO Work Phone: Start: 01-02-2023 Colonoscopy Louis Radha e DO Work Phone: Start: 03-29-2022 Reprgrmg programmabl e cerebrospinal shunt Simi Mcwilliams MD Work Phone: Start: 02-22-2022 Visual field xm uni/ bi w/interp extended exam Martha Crain MD Work Phone: Start: 01-03-2022 Radiologic examinati on skull 4/> views Simi Mcwilliams MD Work Phone: Start: 01-03-2022 MO REPROGRAMMING,PROGRAMMABLE CSF SHUNT PERFORMABLE Simi Mcwilliams MD Work Phone: Plan of Treatment Date Care Activity Detail Author Start: 01-02-2033 Screening for malign ant neoplasm of colon [facility] Start: 11-10-2032 Tetanus vaccination TETANUS [facility] Start: 11-18-2023 Influenza vaccination INFLUENZA VACC INE (#1) [facility] Start: 07-10-2023 Tetanus vaccination TETANUS [facility] Start: 01-08-2023 End: 01-08-2023 Patient encounter procedure 01/08/2023 1:20 PM EDT Office Visit [facility] [address] [place] [address] Christine Jarquin, SPECIFICATION MANAGER-SALESPERSON [employer] [address] [facility] [address] [place] [address] [facility] [place] Start: 11-17-2022 Influenza vaccination INFLUENZA VACC INE (#1) [facility] Start: 11-08-2022 End: 11-08-2022 Patient encounter procedure 11/08/2022 12:40 PM EDT Office Visit [facility] [place] [address] [facility] [address] [place] [phone] Christine Jarquin, SPECIFICATION MANAGER-SALESPERSON [employer] [address] [facility] [address] [place] [phone] [facility] [place] Start: 10-16-2022 End: 10-16-2022 Patient encounter procedure 10/16/2022 2:30 PM EDT Office Visit [facility] [address] [place] [address] Gerson Mabry, SPECIFICATION MANAGER-SALESPERSON [employer] [address] [place] [address] [facility] Start: 10-16-2022 Subsequent hospital visit by physician 10/16/2022 1:00 PM EDT Hospital Encounter [facility] [place] [address] [facility] [address] [place] [phone] Ade Us, SPECIFICATION MANAGER-SALESPERSON [employer] [address] [place] [phone] [facility] [place] Start: 10-13-2022 End: 10-13-2022 Patient encounter procedure [facility] Start: 09-13-2022 End: 09-14-[address] ANGIO BRAIN/NECK Imaging Routine Pulsatile tinnitus of both ears Expected: 09/13/2022, Expires: 09/14/2023 [facility] Comment on above: Expected: 09/13/2022 , Expires: 09/14/2023 Start: 09-13-2022 End: 09-14-2023 MR Internal auditory canal WO and W contrast IV MRI INTERNAL AUDITORY CANAL WITH AND WITHOUT CONTRAST Imaging Routine Asymmetric SNHL (sensorineural hearing loss) Expected: 09/13/2022, Expires: 09/14/2023 [facility] Comment on above: Expected: 09/13/2022 , Expires: 09/14/2023 Start: 08-07-2022 End: 08-07-2022 Patient encounter procedure 08/07/2022 Office Visit Neurology Christine Jarquin, SPECIFICATION MANAGER-SALESPERSON [employer] [address] [place] [phone] [facility] [place] Start: 05-11-2022 End: 05-11-2022 Patient encounter procedure 05/11/2022 Office Visit Neurology Josiane Cabrales MD [address] [place] [address] [facility] [place] Start: 04-27-2022 End: 04-27-2022 Patient encounter procedure 04/27/2022 Office Visit Ophthalmology Martha Crain MD [address] [place] [address] [facility] Start: 04-05-2022 End: 04-05-2022 Patient encounter procedure 04/05/2022 Office Visit Ophthalmology Martha Crain MD [address] [place] [address] [facility] Start: 03-29-2022 Subsequent hospital visit by physician 03/29/2022 Hospital Encounter Magnetic Resonance Imaging Martha Crain MD [address] [place] [address] [facility] Start: 01-17-2022 End: 01-17-2022 Telemedicine consultation with patient 01/17/2022 Telemedicine Neurologic Surgery Simi Mcwilliams MD [address] [place] [address] [facility] Start: 06-14-2019 Screening for malign ant neoplasm of colon COLORECTAL CANCER SCREENING DISCUSSION [facility] Start: 02-09-2014 Prostate specific antigen measurement PROSTATE CANCER SCREENING DISCUSSION [facility] Start: 02-09-2014 Zoster vaccine hzv l alphonse for subcutaneous use ZOSTER (SHINGLES) VACCINE (1 of 2) [facility] Start: 02-09-2014 Zoster Vaccines (1 o f 2) Zoster Vaccines (1 of 2) [facility] Start: 02-09-2009 Screening for malign ant neoplasm of colon COLORECTAL CANCER SCREENING DISCUSSION [facility] Start: 2004 Lipid panel LIPID SCREENING [facility] Start: 02-09-1986 DTaP/Tdap/Td Vaccine s (1 - Tdap) DTaP/Tdap/Td Vaccines (1 - Tdap) [facility] Start: 02-09-1983 Hepatitis B vaccination HEP B VACCINE (1 of 3 - 19+ 3-dose series) [facility] Start: 02-09-1983 Hepatitis B Vaccines (1 of 3 - 19+ 3-dose series) Hepatitis B Vaccines (1 of 3 - 19+ 3-dose series) [facility] Start: 02-09-1982 Hepatitis C screening Hepatitis C Sc reening [facility] Start: 02-09-1979 HIV screening HIV SCREENING DISCUSSION [facility] Start: 02-09-1965 MMR Vaccines (1 of 1 - Standard series) MMR Vaccines (1 of 1 - Standard series) [facility] Start: 1965 COVID-19 VACCINE (#1) COVID-19 VACCI NE (#1) [facility] Start: 1965 Hepatitis B vaccination HEP B VACCINE (1 of 3 - 3-dose series) [facility] Start: 1965 Hepatitis C screening HEPATITI S C VIRUS SCREENING [facility] Start: 1965 HIV screening HIV Screening [facility] Start: 1964 Lipid panel Lipid Panel [facility] Start: 1965 Screening for malign ant neoplasm of colon [facility] Start: 1965 Yearly Adult Physical Yearly Adult P hysical [facility] Canalith repositioni ng procedure MO CANALITH REPOSITIONING PROCEDURE, PER DAY MO Charge Routine BPPV (benign paroxysmal positional vertigo), right Ordered: 09/13/2022 [facility] Comment on above: Ordered: 09/13/2022 End: 10-13-2022 CT angiography [facility] Comment on above: 1 Occurrences starti ng 10/13/2022 until 10/13/2022 End: 01-08-2024 Glucose [Mass/volume] in Serum or Plasma Glucose Lab Routine Once (Lab) for 1 Occurrences starting 01/08/2024 until 01/08/2024 [facility] Work Phone: Comment on above: Once (Lab) for 1 Occ urrences starting 01/08/2024 until 01/08/2024 End: 01-08-2024 Moderate Sedation Moderate Sedation Procedures Routine Once for 1 Occurrences starting 01/08/2024 until 01/08/2024 [facility] Service [facility] Work Phone: Comment on above: Once for 1 Occurrenc es starting 01/08/2024 until 01/08/2024 MR Brain WO and W contrast IV MRI BRAIN WITH AND WITHOUT CONTRAST Imaging Routine Migraine with aura and without status migrainosus, not intractable Ordered: 02/22/2022 [facility] Comment on above: Ordered: 02/22/2022 End: 10-16-2022 MR Internal auditory canal WO and W contrast IV [facility] Work Phone: Comment on above: 1 Occurrences starti ng 10/16/2022 until 10/16/2022 Surgical pathology study [facility] Work Phone: Comment on above: Release Upon Orderin g for 1 Occurrences starting 01/08/2024 X-ray of shunt XR SHUNTOGRAM RIGGING FOREMAN SKULL/CHEST/ABDOMEN Imaging Routine Arachnoid cyst S/P RIGGING FOREMAN shunt Presence of cerebrospinal fluid drainage device 01/03/2022 2:38 PM EDT [facility] Immunizations Immunization Date Immunization Notes Care Provider Fa cility 12-13-2022 influenza virus vaccine, unspecified formulation Christine Jarquin SPECIFICATION MANAGER-SALESPERSON [employer] Work Phone: [facility] 12-20-2021 influenza virus vaccine, unspecified formulation Ade Us SPECIFICATION MANAGER-SALESPERSON [employer] Work Phone: [facility] Payers Date Payer Category Payer Managed Care (Private) [facility] [employer] [id number] 2019 Unknown 2019 Unknown [id number] 2017 Private Health Insurance 1965 Unknown [id number] [id number] .356 1965 Unknown [id number] 2.0.1.835501.3.579.2 .356 1964 Unknown [id number] 2.0.1.458401.3.579.2 .594 1964 Unknown [id number] 2.840.1.152110.3.579.2 .594 1964 Unknown [id number] 2.0.1.437910.3.579.2 .594 1964 Unknown [id number] 2.840.1.482574.3.579.2 .594 1964 Unknown [id number] 2.840.1.682660.3.579.2 .594 1964 Unknown [id number] 2.840.1.333077.3.579.2 .594 1964 Unknown [id number] 2.16840.1.122461.3.579.2 .594 1964 Unknown [id number] 2.16840.1.264215.3.579.2 .594 1964 Unknown [id number] 2.840.1.190263.3.579.2 .594 1964 Unknown [id number] 2.840.1.584497.3.579.2 .594 1964 Unknown [id number] 2.840.1.333038.3.579.2 .594 1964 Unknown [id number] 2.840.1.511610.3.579.2 .594 1964 Unknown [id number] 2.840.1.585338.3.579.2 .594 1964 Unknown [id number] 2.840.1.267761.3.579.2 .594 1964 Unknown [id number] 2.840.1.358759.3.579.2 .594 1964 Unknown [id number] 2.840.1.792072.3.579.2 .594 1964 Unknown [id number] 2.840.1.743477.3.579.2 .594 1964 Unknown [id number] 2.840.1.789165.3.579.2 .1243 Private Health Insurance [id number] Social History Date Type Detail Facility Tobacco smoking stat us GAIS Tobacco smoking consumption unknown [facility] Start: 1965 Sex Assigned At Not on file [facility] Start: 02-12-2022 End: 04-27-2022 Exposure to SARS-CoV-2 (event) Unable to assess [facility] Start: 04-12-2022 End: 12-13-2023 Tobacco smoking status NHIS Ex-smoker [facility] History of tobacco use Current smoker [facility] History of tobacco use Cigarette Smoker [facility] Start: 04-12-2022 End: 01-08-2024 Cigarettes smoked current (pack per day) - Reported 2 [facility] Start: 04-12-2022 End: 01-08-2024 Alcohol intake Ex-drinker (finding) [facility] Start: 05-01-2022 End: 01-08-2024 Exposure to SARS-CoV-2 (event) Not sure [facility] Start: 09-13-2022 End: 01-08-2024 Tobacco use panel [facility] History of tobacco use Passive smoker [facility] Work Phone: Start: 12-13-2023 Tobacco use and exposure Smokeless tobacco non-user [facility] Work Phone: Start: 1965 Sex assigned at Male [facility] Start: 12-25-2023 Gender identity Identifies as male gender (finding) [facility] Work Phone: Clinical Notes 01-03-2022 to 01-08-2024 Discharge InstructionsLouis Carrillo DO - 01/08/2024 10:00 AM Pete Carrillo DO - 01/08/2024 10:00 AM MARIO Gamboa - 10/10/2023 1:00 PM EDTPatient Instructions Note Date & Type Note Facility 01-08-2024 Hospital Discharge instructions Juana Serrano RN - 01/08/2024 10:23 AM EDT Patient Instructions after an endoscopy or colonoscopy The anesthetics, sedatives or narcotics which were given to you today will be acting in your body for the next 24 hours, so you might feel a little sleepy or groggy. This feeling should slowly wear off. Carefully read and follow the instructions. You received sedation today: - Do not drive or operate any machinery or power tools of any kind. - No alcoholic beverages today, not even beer or wine. - Do not make any important decisions or sign any legal documents. - No over the counter medications that contain alcohol or that may cause drowsiness. - Do not make any important decisions or sign any legal documents. While it is common to experience mild to moderate abdominal distention, gas, or belching after your procedure, if any of these symptoms occur following discharge from the GI Lab or within one week of having your procedure, call the [facility] to be advised whether a visit to your nearest Urgent Care or Emergency Department is indicated. Take this paper with you if you go. - If you develop an allergic reaction to the medications that were given during your procedure such as difficulty breathing, rash, hives, severe nausea, vomiting or lightheadedness.- If you experience chest pain, shortness of breath, severe abdominal pain, fevers and chills. -If you develop signs and symptoms of bleeding such as blood in your spit, if your stools turn black, tarry, or bloody - If you have not urinated within 8 hours following your procedure.- If your IV site becomes painful, red, inflamed, or looks infected. documented in this encounter [facility] Work Phone: 01-08-2024 Attending History and physical note H&P reviewed. The patient was examined and there are no changes to the H&P. Source Note - Louis Carrillo DO - 12/13/2023 1:45 PM EDT Subjective Patient ID: Armando Chatterjee is a 58 y.o. male who presents for Establish Care (NPV referred by Dr. Potts; had esophogram for globus sensation was negative. Still having issues with throat. Colonoscopy done in Dec by Dr. Zhang. Has a family hx of colon ca. //Feels like something is stuck in throat. ). HPI patient is a pleasant 58-year-old male referred for intermittent dysphagia and feeling of incomplete clearing of his esophagus. He does have overnight reflux with waterbrash. He is not on chronic PPI therapy takes intermittent indigestion aids such as Tums or Rolaids. Is having worsening progressive feeling of incomplete swallowing. Denies any weight loss or melena. Underwent colonoscopy last December which revealed no polyps. Endoscopy has not been performed in the past Review of Systems Constitutional: Negative. HENT: Negative. Eyes: Negative. Respiratory: Negative. Cardiovascular: Negative. Gastrointestinal: Negative. Endocrine: Negative. Genitourinary: Negative. Musculoskeletal: Negative. Neurological: Negative. Hematological: Negative. Psychiatric/Behavioral: Negative. Objective Physical Exam Vitals and nursing note reviewed. Constitutional: Appearance: Normal appearance. HENT: Head: Normocephalic. Mouth/Throat: Mouth: Mucous membranes are moist. Pharynx: Oropharynx is clear. Eyes: Pupils: Pupils are equal, round, and reactive to light. Cardiovascular: Rate and Rhythm: Normal rate and regular rhythm. Heart sounds: Normal heart sounds. Pulmonary: Effort: Pulmonary effort is normal. Breath sounds: Normal breath sounds. Abdominal: General: Abdomen is flat. Bowel sounds are normal. Palpations: Abdomen is soft. Musculoskeletal: General: Normal range of motion. Cervical back: Normal range of motion and neck supple. Skin: General: Skin is warm and dry. Neurological: General: No focal deficit present. Mental Status: He is alert and oriented to person, place, and time. Psychiatric: Mood and Affect: Mood normal. Behavior: Behavior normal. Assessment/Plan Diagnoses and all orders for this visit: Gastroesophageal reflux disease with esophagitis without hemorrhage - pantoprazole (ProtoNix) 40 mg EC tablet; Take 1 tablet (40 mg) by mouth once daily. Do not crush, chew, or split. - Esophagogastroduodenoscopy (EGD); Future Recommend Protonix 40 mg daily. Arrange endoscopy given his symptoms of incomplete esophageal emptying. Louis Carrillo DO 12/13/23 2:21 PM [facility] Work Phone: 01-08-2024 History and physical note H&P reviewed. The patient was examined and there are no changes to the H&P. Source Note - Louis Carrillo, DO - 12/13/2023 1:45 PM EDT Subjective Patient ID: Armando Chatterjee is a 58 y.o. male who presents for Establish Care (NPV referred by Dr. Potts; had esophogram for globus sensation was negative. Still having issues with throat. Colonoscopy done in Dec by Dr. Zhang. Has a family hx of colon ca. //Feels like something is stuck in throat. ). HPI patient is a pleasant 58-year-old male referred for intermittent dysphagia and feeling of incomplete clearing of his esophagus. He does have overnight reflux with waterbrash. He is not on chronic PPI therapy takes intermittent indigestion aids such as Tums or Rolaids. Is having worsening progressive feeling of incomplete swallowing. Denies any weight loss or melena. Underwent colonoscopy last December which revealed no polyps. Endoscopy has not been performed in the past Review of Systems Constitutional: Negative. HENT: Negative. Eyes: Negative. Respiratory: Negative. Cardiovascular: Negative. Gastrointestinal: Negative. Endocrine: Negative. Genitourinary: Negative. Musculoskeletal: Negative. Neurological: Negative. Hematological: Negative. Psychiatric/Behavioral: Negative. Objective Physical Exam Vitals and nursing note reviewed. Constitutional: Appearance: Normal appearance. HENT: Head: Normocephalic. Mouth/Throat: Mouth: Mucous membranes are moist. Pharynx: Oropharynx is clear. Eyes: Pupils: Pupils are equal, round, and reactive to light. Cardiovascular: Rate and Rhythm: Normal rate and regular rhythm. Heart sounds: Normal heart sounds. Pulmonary: Effort: Pulmonary effort is normal. Breath sounds: Normal breath sounds. Abdominal: General: Abdomen is flat. Bowel sounds are normal. Palpations: Abdomen is soft. Musculoskeletal: General: Normal range of motion. Cervical back: Normal range of motion and neck supple. Skin: General: Skin is warm and dry. Neurological: General: No focal deficit present. Mental Status: He is alert and oriented to person, place, and time. Psychiatric: Mood and Affect: Mood normal. Behavior: Behavior normal. Assessment/Plan Diagnoses and all orders for this visit: Gastroesophageal reflux disease with esophagitis without hemorrhage - pantoprazole (ProtoNix) 40 mg EC tablet; Take 1 tablet (40 mg) by mouth once daily. Do not crush, chew, or split. - Esophagogastroduodenoscopy (EGD); Future Recommend Protonix 40 mg daily. Arrange endoscopy given his symptoms of incomplete esophageal emptying. Louis Carrillo DO 12/13/23 2:21 PM documented in this encounter [facility] Work Phone: 10-10-2023 History of Present illness Narrative [facility] Department of Neurology Headache Division Follow-up Visit ASSESSMENT: 58 y.o. male with history significant for IIH s/p [employer] shunt, cervical spinal fusion, and chronic migraine, presenting for follow up of headaches. Infrequent episodic migraine without aura. Has an effective migraine abortive. He is satisfied with his current medication regimen and current level of migraine control so we will continue this regimen unchanged. PLAN: (Please see typed patient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 to 10 days/month of use or less. ---> Preventive Treatment: The patient has a diagnosis of chronic or episodic migraine with 30 days per month of headache (30 are migraine). The patient has had at least 5 migraine attacks lasting 4-72 hours, lasting at least 4 hours on average. The patient has tried and failed the following preventative and abortive treatments for at least three months, or due to side effects: propranolol, topiramate, depakote, gabapentin, amitriptyline, nortriptyline, cymbalta, Botox x2 cycles, excedrin, tylenol, naproxen, sumatriptan The patient has the following (bolded): unilateral headache, throbbing or pounding quality, aggravated by physical activity, moderate or severe pain intensity, nausea or vomiting or anorexia, photophobia, phonophobia. The headaches are disabling and cause the patient to miss important work and life activities. We will apply for Emgality for migraine for this patient and believe it to be a medical necessity. ---> referral to neck PT ---> Headache education was done. Discussed lifestyle modification including increased oral hydration, decreased caffeine, exercise and stress management. Discussed treatment options including preventive and acute medications, natural supplements, and infusion therapy. Discussed medication overuse headache and to limit use of acute treatments to no more than 2 days/week or 10 days/month. Discussed medication side effects, adverse reactions and drug interactions. Discussed the safety implications of the prescribed medications with and breast feeding, if applicable. Written educational materials and patient instructions outlining all of the above were given. Patient was informed that this office does not fill out disability paperwork for patients for headaches, and that this office does not prescribe narcotic medications. ---> Follow-up: 3 months Josiane Cabrales MD Senior Facilities Manager of Neurology Headache Division [facility]rological [place] Department of Neurology Total time in minutes spent with patient: 60 mins with more than 50% of the time spent in patient education/counselling/coordinating care with the patient and /or family. cc: Martha Crain MD [address] [place] [address] Simi Potts [address] [facility] [address] [facility] [phone] REFERRING PHYSICIAN: Martha Crain MD [address] [place] [address] PCP: Simi Potts [address] [facility] [address] [facility] [phone] HISTORY OF PRESENT ILLNESS CC: headaches HxCC: 57 y.o. male who presents for evaluation of headaches HEADACHE : Onset: 2000 , better after cyst removal and shunt, headaches came back in 2013 Location: bitemporal, behind left eye Description: throbbing, constant Characteristics: Duration: all day. Frequency: daily . Severity: 7/10 at maximal pain. Fluctuation: Associated symptoms: Aura: visual aura Nausea: y Vomiting: n Photophobia:y Phonophobia:n Dizziness: y Neck pain: n Focal neurologic symptoms: throbbing in both arms Autonomic symptoms: n Position change: better sitting up Tinnitus/TVOs:pulsitile tinnitus Worsened with physical activity: avoids Worse with bending over:n Worse with cough:n Relieving factors: Triggers: nothing Fluid intake: a lot Exercise:yes Missed Work? Not working PRIOR EVALUATIONS: Neuro-ophthalmology 04/2022 RECENT IMAGING/DIAGNOSTICS: EXAM: MRI BRAIN WITH AND WITHOUT CONTRAST, 03/29/2022 14:33 PM COMPARISON: Compared to MRI brain with and without contrast December 15, 2020 CLINICAL INDICATIONS: 57 years Male new migraine; RELEVANT CLINICAL HISTORY: G43.109:Migraine with aura and without status migrainosus, not intractable MRI-/+G brain: 57 yr male with new onset migraine w/ fortification spectrum. Please look for alternative Dx like an AVM. Thanks KYLAH PLUMMER; TECHNIQUE: A series of multisequence, multiplanar images of the brain are obtained both before and after intravenous administration of gadolinium-based contrast using standard protocol. Study was performed at [address] [place]. CONTRAST: gadoterate Meglumine (DOTAREM) 5 MMOL/10ML injection 3-60 mL; Route of Administration: Intravenous; Dose: 20 mL. FINDINGS: Postsurgical changes from right frontal approach shunt catheter with tip crossing midline located in the left foramen of Monro with surrounding gliosis Parenchymal signal abnormality is identified. Minimal scattered foci of T2/FLAIR hyperintensity in the periventricular and subcortical white matter are nonspecific, but likely related to chronic small vessel ischemic disease. No evidence of edema. No evidence of mass lesion. No evidence of hemorrhage. No diffusion restriction or evidence of acute infarct is identified. Diffuse dural enhancement with similar dilation of the transverse sinus and similar prominence of the venous structures in the brainstem along the clivus. These findings are consistent with intracranial hypotension as noted previously. When compared to prior, the dural thickening and enhancement have decreased. No extracerebral collection. Similar small pituitary fossa with resultant bulge into the suprasellar cistern likely due to the nature of the small fossa and normal size of pituitary. Stable asymmetric retrocerebellar CSF space overlying the vermis and left cerebellar hemisphere. Likely represents an arachnoid cyst. Ventricles are moderately enlarged with biventricular diameter measuring 4.6 cm, previously 4.1 cm. Prior left-sided subacute subdural craniotomy likely related to decompression. Stable inflammatory changes seen in the paranasal sinuses, most prominent in the ethmoid air cells with retention cysts in the maxillary sinuses. IMPRESSION IMPRESSION: 1. No acute intracranial findings. No evidence for arteriovenous malformation. No significant change since prior examination. 2. Improved findings of intracranial hypotension with decreased diffuse dural thickening and enhancement with congestion of the dural sinuses and venous structures. 3. Stable left retrocerebellar arachnoid cyst. Status post left suboccipital craniotomy. 4. Status post right sided ventricular shunt placement with moderately enlarged ventricles. TREATMENTS tried or currently on: Preventive medications: Antihypertensives: Beta-blockers: Propranolol (Inderal) Antiepileptics: Gabapentin (Neurontin) Topiramate (Topamax) Valproic acid (Depakote or Depakene) Antidepressants: Tricyclics: amitriptyline Nortriptyline (Pamelor) SNRIs: Duloxetine (Cymbalta) NSAIDs: Naproxen (Naprosyn) Ibuprofen (Motrin) Other Over the Counter Medications: Excedrin Tylenol Muscle Relaxants: Methocarbamol (Robaxin) Others: Botox-two cycles not effective Abortive medications: Triptans: Sumatriptan (Imitrex) PAST MEDICAL HISTORY, PAST SURGICAL HISTORY, MEDICATIONS, ALLERGIES, FAMILY HISTORY, SOCIAL HISTORY PMH: Past Medical History: Diagnosis Date Migraine PSH: Past Surgical History: Procedure Laterality Date CERVICAL FUSION 2014 CRANIOTOMY 2001 ASSISTANCE W/ INSERTION OF RIGGING FOREMAN SHUNT 2001 CURRENT MEDS: Current Outpatient Medications Medication Sig Dispense Refill cyanocobalamin 100 MCG tablet Take 1 tablet by mouth daily. magnesium oxide 400 MG tablet Take 200 mg by mouth 2 times daily. melatonin 3 MG tablet Take 1 tablet by mouth at bedtime. Nortriptyline 25 MG capsule Take 2 capsules by mouth at bedtime. 62 capsule 0 No current facility-administered medications for this visit. ALLERGIES: Allergies Allergen Reactions Latex Burning sensation FMH: Family History Problem Relation Age of Onset Aneurysm Mother Vision Problems Mother Maculardegeneration Colorectal Cancer Father SOCIAL: Social History Socioeconomic History Marital status: Spouse name: Not on file Number of children: Not on file Years of education: Not on file Highest education level: Not on file Occupational History Not on file Tobacco Use Smoking status: Former Packs/day: 2.00 Years: 35.00 Pack years: 70.00 Types: Cigarettes Smokeless tobacco: Not on file Substance and Sexual Activity Alcohol use: Not Currently Drug use: Never Sexual activity: Yes Partners: Female control/protection: Menopause Other Topics Concern Occupational Exposure No Hobby Hazards No Social History Narrative Not on file Social Determinants of Health Financial Resource Strain: Not on file Food Insecurity: Not on file Transportation Needs: Not on file Physical Activity: Not on file Stress: Not on file Social Connections: Not on file Intimate Partner Violence: Not on file Housing Stability: Not on file REVIEW OF SYSTEMS REVIEW OF SYSTEMS (positives in bold): Sleep: No snoring, waking up gasping for air, difficulty getting to sleep, difficulty staying asleep Mood: not feeling depressed Energy: does not have low energy Stress: no increased stress Psychiatric Disorders: Not seeing psychologist or psychiatrist Unless directly addressed in ROS or in assessment and plan, patient was instructed to followup positive ROS findings with PCP. PHYSICAL EXAM PHYSICAL EXAM: BP 128/72 (BP Location: Right arm, BP Position: Sitting) Pulse 83 Temp 97.9 F (36.6 C) (Infrared) Ht 1.753 m (5' 9 ) Comment: verbal Wt 99 kg (218 lb 3.2 oz) BMI 32.22 kg/m Smoking Status Former Body mass index is 32.22 kg/m . GEN: Alert. NAD. Normal affect. Cooperative. HEENT: No rhinorrhea, lacrimation or conjunctival injection. No sinus tenderness. Normal mucosa. Fundoscopic exam unremarkable NECK/BACK: No lymphadenopathy. Suboccipital tenderness not present. paracervical and upper shoulder musculature/traps tenderness and hypertonicity present. RESP: CTA b/l. NEUROLOGICAL: MENTAL STATUS: Alert and oriented to time, place, and person. Recent and remote memory normal. Attention span and concentration is normal. Thought process and content unremarkable. Follows commands appropriately. Speech including naming, fluency, and comprehension is normal. No dysarthria noted. Fund of knowledge normal. CN: II: Visual haines intact. PERRL. No Papilledema III, IV, : EOMI. No ptosis present. V: Symmetric facial sensation to light touch. VII: Face symmetric. VIII: Hearing symmetric. No nystagmus. IX, X: Symmetric palatal rise. XI: Symmetric shoulder shrug. XII: Tongue midline. MOTOR: Normal tone. Normal bulk. Motor symmetric 5/5 strength in shoulder abduction, elbow flexion, elbow extension, wrist flexion, wrist extension, and finger abduction. Symmetric 5/5 strength in hip flexion, knee flexion, knee extension, dorsiflexion, and plantar flexion. REFLEXES: RIGHT: LEFT: Biceps 2/4 Biceps 2/4 Brachioradialis 2/4 Brachioradialis 2/4 Triceps 2/4 Triceps 2/4 Patellar 2/4 Patellar 2/4 Achilles 2/4 Achilles 2/4 No clonus. Negative [place]. SENSATION: Light touch, symmetric in all four extremities. Negative Romberg. CEREBELLAR: Normal [id number] testing without ataxia. No nystagmus. GAIT: Stable primary gait. Normal tandem gait. documented in this encounter [facility] 05-11-2022 Instructions Josiane Cabrales MD - 05/11/2022 12:30 PM EST Headache Visit After Visit Instructions: The best way to contact me directly is [employer], which you can sign up for at the front end developer designer. I check [employer] messages daily and also usually even on weekends and holidays (although not guaranteed on weekends and holidays). You may contact my office by phone during business hours, our office phone number is [phone]. I will be sent a message if you call in, but your response will likely come from a medical psychotherapist or nurse. If you are signed up for [employer], your response will come by [employer]. Calls will take three business days to return. After hours, if you have an emergency that cannot wait until the next business day or a [employer] response, I recommend proceeding to your closest emergency room or urgent care facility. Please do not call the office after hours or on holidays. Acute Headache Treatment: 1) try rizatriptan 10 mg at earliest sign of migraine. May repeat once in 2 hours. Max dose 2 tablets in 24hrs Do not use more than 2 days per week, or 10 days per month. 3) Limit all abortives including over the counter medications and triptans/ergots to 10 days/month of use or less. Headache Preventive Treatment: *Please keep in mind that it takes 4-6 weeks for the medication to start working well and 2-3 months at the appropriate dose before deciding if it will be useful or not. If it is not helping at all by this time, then we will discuss other medications to try. Supplements may take 3-6 months until you see full effect. 1) I have applied for Emgality monthly injections -Continue nortriptyline General Headache Instructions: 1) Maintain a headache diary; learn to identify and avoid triggers. Migraine Aaron is one of several free smart phone apps that can help with this. 2) Limit use of acute treatments ([id number]-[id number] medications, triptans, etc.) to no more than 2 days per week or 10 days per month to prevent medication overuse headache (rebound headache). 3) Follow a regular schedule (including weekends and holidays) for the next 6 weeks: A) Don't skip meals. Must eat breakfast, lunch, and dinner. B) 8 hours of sleep nightly. Practice good sleep hygiene. If you can't get to sleep after 15-30 minutes, get up out of bed and do something boring like read until tired. No phone or TV in bed. Music is ok. C) Some patients try an elimination diet, avoiding some of the following food triggers. Keep in mind, these have weak evidence as triggers: -Caffeine such as coffee, chocolate, tea, cola/pop/soda (7-up, Sprite, Lexi Mist, Ely Shraddha, Mug/A+W Root Beer, Minute Maid [place], Slice are okay). Some daily caffeine is ok as long as you keep it consistent. Large fluctuations in caffeine use can worsen headaches. -Foods containing nitrates (deli meat, ham, fontenot, sausage, hot dogs) -Alcohol (corbin containing sulfites are big culprits) -Tyramine (aged cheese; can only have Bahamian cheese, cottage cheese, Velveeta and fresh mozzarella. Most pizza uses aged mozzarella) -MSG (Albanian/ foods, Doritos, all flavored chips and Ramen noodles) -Nutrasweet and artificial sweeteners D) Minimize stress. E) Exercise 30 minutes per day. Weight loss has been proven to reduce migraine frequency in overweight/obese migraine patients. F) Keep well hydrated and drink 6-8 glasses of water per day. 4) Initiate non-pharmacologic measures at the earliest onset of your headache. A) Rest and quiet in a cool, dark environment. B) Relax and reduce stress. Meditation apps (Calm, Headspace, etc. can be helpful) C) Cold compress to head (place a dry washcloth to forehead, cover with a blue freezer packet and use a headband to press the freezer packet across the forehead and temples). 5) Don't wait!! Take the maximum allowable dosage of prescribed medication at the very earliest sign of headache. 6) Compliance: Take prescribed medication regularly as directed and at the first sign of a headache. 7) Communicate: MyChart me when problems arise, especially if your headaches change, increase in frequency/severity, or become associated with neurological symptoms (weakness, numbness, slurred speech, etc.). 8) Headache/pain management therapies: Consider various complementary methods, including medication, behavioral therapy, psychological counselling, biofeedback, massage therapy, acupuncture, and other modalities. Such measures may reduce the need for medications. Counseling for pain management, where patients learn to function and ignore/minimize their pain, seems to work very well. 9) Recommend changing family's attention and focus away from patient's headaches. Instead, emphasize daily activities. If first question of day is 'How are your headaches/Do you have a headache today?', then patient will constantly think about headaches, thus making them worse. Goal is to re-direct attention away from headaches, toward daily activities and other distractions. 10) It is important to try to attend work and/or school even with a headache. Missing work and school does not help improve headaches. At our practice, we do not fill out disability paperwork for headaches, although we are willing to fill out FMLA paperwork. If you have FMLA paperwork to fill out, either bring to your appointment or contact me via [employer]. If you bring it to clinic on a day other than your appointment, or fax it in, you will be charged a form fee. 11) Get the COVID-19 vaccine if you haven't already! The COVID-19 infection worsens headaches and migraine. Text your ZIP code to 301121 or call to find vaccine locations near you. Avoiding Medication Overuse Headache (Rebound Headache): Based on current research, the types of medications and their frequency of use which converts a previously episodic headache (particularly migraine) into a chronic daily headache (any headache occurring 15 or more days per month for at least 4 hours per day) are as follows: ---> Over the counter medications, NSAIDS and combination analgesics: -More than 2 days per week, or more than 10 days per month. -These include medications such as Acetaminophen (Tylenol), Naproxen (Aleve), Ibuprofen (Advil, Motrin), Acetaminophen/Caffeine (Excedrin), Acetaminophen/Dichloralphenazone/Isome theptene (Midrin), Aspirin (ok to continue if taking for medical reasons), cold remedies and sleep-promoting agents, among others. ---> Triptans: -More than 2 days per week, or more than 10 days per month. -These include Sumatriptan (Imitrex), Sumatriptan/Naproxen (Treximet), Rizatriptan (Maxalt), Almotriptan (Axert), Zolmitriptan (Zomig), Eletriptan (Relpax), Naratriptan (Amerge), Frovatriptan (Frova). ---> Opiates/Opioids (Narcotics): -10 days or more per month. Some research suggests that even infrequent use of these medications makes migraine specific medications such as triptans and NSAIDs less effective. -These include any narcotics such as Acetaminophen/Hydrocodone (Vicodin), Acetaminophen/Oxycodone (Percocet), Acetaminophen/Propoxyhene (Darvocet), Acetaminophen/Codeine (Tylenol #3, #4), Tramadol (Ultram), Acetaminophen/Tramadol (Ultracet), Oxycodone (OxyContin), Hydromorphone (Dilaudid), Fentanyl, Butorphanol (Stadol), Morphine or any form of a Morphine derivative. We do not prescribe narcotics under any circumstances at this practice. ---> Butalbital containing medications: -10 or more days per month. These are typically the worst offenders. -These include Acetaminophen/Butalbital/Caffeine (Fioricet, Esgic) Acetaminophen/Butalbital/Caffeine/Code ine (Fioricet with Codeine), Aspirin/Butalbital/Caffeine (Fiorinal), Aspirin/Butalbital/Caffeine/Codeine (Fiorinal with Codeine). Vitamins and herbs that show potential for migraine prevention: Magnesium: Magnesium oxide or citrate (400-600 mg daily with food) has a relaxant effect on smooth muscles such as blood vessels. We often give intravenous magnesium to patients who come into the emergency department for migraine because it helps to break the migraine. Three trials found 40-90% average headache reduction when used as a preventative. Magnesium also demonstrated the benefit in menstrually related migraine. Magnesium is part of the messenger system in the serotonin cascade and it is a good muscle relaxant. It is also useful for constipation which can be a side effect of other medications used to treat migraine. Good sources include nuts, whole grains, and tomatoes. There is controversy over whether this is safe in , although it has been used safely in oral form for decades in . Coenzyme Q10: This is present in almost all cells in the body and is critical component for the conversion of energy. Recent studies have shown that a nutritional supplement of CoQ10 can reduce the frequency of migraine attacks by improving the energy production of cells as with riboflavin. Doses of 300-400 mg daily have been shown to be effective. This medication is NOT safe if you are taking warfarin (Coumadin). There is uncertain safety in . Riboflavin (Vitamin B2): 400 mg daily. This vitamin assists nerve cells in the production of ATP, a principal energy storing molecule. It is necessary for many chemical reactions in the body. There has been a randomized, placebo-controlled clinical trial using 400 mg per day which suggested that migraine frequency can be decreased. The supplement is found in bread, cereal, milk, meat, and poultry. Most Americans get more riboflavin than the recommended daily allowance, however riboflavin deficiency is not necessary for the supplements to help prevent headache. This supplement is safe in . Feverfew: Feverfew is a common garden herb elim ira to [place] and popular in [place] as a treatment for disorders typically controlled by aspirin. The mechanism of action is unknown but is believed to be related to a chemical called parthenolide which helps the body use serotonin more effectively. Serotonin helps prevent migraine and assists with resolution when it occurs. Parthenolide also inhibits the release of histamine which is linked to pain and inflammation. Consistency of active ingredients in different products can be a problem. Typical dosage is one capsule (6.25 mg) 3 times a day. This supplement is not recommended in . Butterbur: This is an extract derived from the petisjermaine ceballosus root, which has been used for medicinal purposes since ancient times. A recent study found that 75 mg twice daily reduced headache frequency versus placebo. Side effects were infrequent, and the most common and unusual includes burping/belching. Raw ion root contains toxic chemicals that must be filtered out during the manufacturing process. To be sure you are choosing a safe product. Look for a formulation that does not contain pyrrolizidine alkaloids which are toxic to the liver. This is not safe in . Melatonin: Increasing evidence shows correlation between melatonin secretion and headache conditions. Melatonin supplementation has shown decreased headache intensity and duration. It is widely used as a sleep aid. Sleep is nature's way of dealing with migraine. A dose of 3 mg is recommended to start for headaches including migraine and cluster headache. Higher doses up to 15 mg has been reviewed for use in Cluster headache and have been used. The rationale behind using melatonin for cluster is that many theories regarding the cause of Cluster headache center around the disruption of the normal circadian rhythm in the brain. This helps restore the normal circadian rhythm. It should be taken at least 2 hours before bedtime. Ely: Ely has a small amount of anti-histamine and anti-inflammatory action which may help headache. It is primarily used for nausea and may aid in the absorption of other medications. Essential Oils: Lavender and Peppermint can be helpful Vitamin D: I encourage patients who live in the [place] or places without much sun to take 1125-8979 units per day in the winter months. You may need more than this and I encourage you to have your primary care physician check levels periodically. There have been two randomized, controlled clinical trials showing benefit for vitamin D supplementation in migraine. Marijuana/CBD: Medical marijuana and CBD oil have anecdotal evidence in migraine. Unfortunately, the federal government makes it difficult to study this medication so there are not large, randomized, controlled clinical trials for this yet. That said, I am not opposed to you inquiring about it. I do not prescribe (have a license to recommend ) at this time but you can go to https://med.[place].gov/Publications/Ric ers to get a list of providers who do have a license to recommend. Grape Seed Extract: There is some evidence in animal models that this may be beneficial in migraine. My headache medicine colleagues typically recommend 300 mg daily, this is available on [employer]. We have used the [employer] brand. Given the lack of evidence of safety in , this is NOT recommended in . documented in this encounter [facility] 04-27-2022 History of Present illness Narrative REASON FOR VISIT Armando Chatterjee presents to clinic today for a Follow-Up Patient visit. Chief Complaint Follow-up HISTORY OF PRESENT ILLNESS HPI 57 y.o. male with a history of migraine with aura and insomnia is present today for a 2 week follow-up. Patient states that over the last two weeks he has gotten better. His headache frequency is lower. Patient notes that his dizziness is happening more often though. Patient notes that his vision does go blurry at times, but it's less frequent than it was before his last appointment. Patient states that the pressure behind his eyes is still occurring, but also less frequent. Patient denies having double vision. Patient states he has had a few more episodes of kaleidescope vision since his last appointment. Patient denies having light sensitivity. Patient admits to having occular pain or discomfort. Patient denies having dry eye. Patient denies having eye redness. Patient denies having tearing. Patient denies having flashes or floaters. Last edited by Jameson Reardon on 04/27/2022 1:36 PM. Allergies, medications & history reviewed & updated by Jameson Reardon REVIEW OF SYSTEMS Review of Systems HENT: Positive for tinnitus (Hears ringing in the left ear at times). Eyes: Positive for pain and visual disturbance. Gastrointestinal: Positive for nausea. Allergic/Immunologic: Positive for environmental allergies. Neurological: Positive for dizziness, light-headedness and headaches. All other systems reviewed and are negative. 10 minutes of face to face time was spent with patient performing the electrical cad technician work of this visit. REASON FOR VISIT Armando Chatterjee presents to clinic today for a Follow-Up Patient visit. Chief Complaint Follow-up HISTORY OF PRESENT ILLNESS HPI 57 y.o. male with a history of migraine with aura and insomnia is present today for a 2 week follow-up. Patient states that over the last two weeks he has gotten better. His headache frequency is lower. Patient notes that his dizziness is happening more often though. Patient notes that his vision does go blurry at times, but it's less frequent than it was before his last appointment. Patient states that the pressure behind his eyes is still occurring, but also less frequent. Patient denies having double vision. Patient states he has had a few more episodes of kaleidescope vision since his last appointment. Patient denies having light sensitivity. Patient admits to having occular pain or discomfort. Patient denies having dry eye. Patient denies having eye redness. Patient denies having tearing. Patient denies having flashes or floaters. Last edited by Jameson Reardon on 04/27/2022 1:36 PM. Allergies, medications & history reviewed & updated by Martha Crain MD REVIEW OF SYSTEMS Review of Systems HENT: Positive for tinnitus (Hears ringing in the left ear at times). Eyes: Positive for pain and visual disturbance. Gastrointestinal: Positive for nausea. Allergic/Immunologic: Positive for environmental allergies. Neurological: Positive for dizziness, light-headedness and headaches. All other systems reviewed and are negative. 10 minutes of face to face time was spent with patient performing the electrical cad technician work of this visit. . CRANIAL NERVES 02/22/22 V1: Corneal sensory reflex intact B/L. V: Sensation of V1-V3 intact bilaterally to LT, PP VII: normal facial symmetry and strength, no ptosis VIII: Hearing to finger rub is mildly diminished AD due to prior dss and Sy. is intact IX/X: Palate elevation is symmetrical, no hoarseness of speech XI: sternocleidomastoid muscles NL strenth XII: Tongue midline when protruding; No fasiculations . HVF: 30-2, 02/22/2022 OD Reliability good Fovea: NL 36dB Blind spot: NL Description: NL with a few far peripheral trial lens artifact spots. OS Reliability excellent Fovea: NL 36dB Blind spot: NL Description: NL Assessment: OU NL . 02/22/22 HPI Armando Chatterjee is a 57 year old man with hydrocephalus secondary to a posterior fossa arachnoid cyst (s/p craniotomy 2000, [employer] shunt in 2000 as well, two months post-op) who is present today for neuro-ophthalmic evaluation of intermittent blurred vision in both eyes, referred by Simi Mcwilliams MD. The patient states he has been experiencing headaches since 2013. He went on to have surgery for ruptured disc in his neck which was thought to be the cause of his headaches, but headache did not improve. Also in 2013, he began to experience transient vision loss (blurred vision) which seems to be present mostly in the left eye, and always temporally. When he experiences blurred vision in his right eye, it always appears nasally. Blurred vision can be monocular or binocular, and can coincide with headache and throbbing in the face and head. The patient states he has no other concerning health issues. BP usually runs normal per patient. He complains of longstanding high pitched ringing in (right ear more than the left) but he does feel this is worsening lately. He has no diplopia, vision black outs, or other visual concerns today. HAs origin is mainly on the left side and sometimes the origin can be elsewhere. RAYMUNDO sometimes is accompanied by N/V. No photophobia or sonophobia. A couple of times he had a kaleidoscope hallucination in his peripheral vision which lasts 10 minutes, he can't say whether the hallucination or the headache came first. His brother has migraine. His mother didn't have migraine but had 3 aneurysms. 02/22/22 A/P His physical exam is unremarkable. He doesn't have dry eyes. Migraine with occasional visual aura. I suspect that his transient blurred vision episodes are migraine phenomena rather than just tear film breakup. A: I think his symptoms are migraine in origin, and he does have migraine with occasional fortification spectrum. The migraines are so few that prophylactic Rx isn't necessary. He could use OTC naproxen as an abortant for the RAYMUNDO. New onset migraine mandates neuroimaging: MRI-/+G brain, RV a few days later to review the result. 04/12/22 He's here to review the MRI brain result. Rx is B21, MgO, meltonin. He increased the melatonin to 5 mg at bedtime. -MRI 03/29/22 Signs of high ICP decreasing, still enlarged ventricles, VPS in good position. Patient reports no changes in vision. I reviewed the images and agree with the report. -He has had a few episodes of kaleidescope vision (ie, migraine visual aura) and it lasted for about 15 minutes (typical amount of time for an aura). -He complains of pressure behind the eyes and headaches that come and go. That latter complaint is classic migraine visual aura. Plan: -The MgO isn't helping so stop using it. -Try nortriptyline 25 mg at bedtime as migraine prophylxis. If after 1 week he notices no improvement then double the dose. This will also help his trouble sleeping. Continue the Melatonin but increase to 10 mg at bedtime. RV 2 weeks to assess headache. 04/27/22 He claims that his headaches are improved in frequency and severity. On occasion he gets a worse headache. He is having long episodes of dizziness. He still occasionally gets the migraine visual aura exclusively in his left hemifields. Plan Increase the nortriptylene dose to 50 mg at bedtime as he's still having some severe headaches. I don't treat visual auras w/o headache except for police, pilots, surgeons, soldiers. The rest of us can stop what we're doing or pull off the road and wait it out. No need for F/U with me. He has appointment in neurology on 05/11/22. . Not addressed: Chronic daily headache Plan: consult neurology the apt of which is 05/11/22 w/Dr. Josiane Cabrales. . I interviewed and examined the patient, and formulated the assessment and plan. I discussed the diagnoses, treatments, and plans, with the patient, who expressed understanding and agreement. All questions were answered. This assessment and plan are based on the assumption that the information provided to me by the patient, and from past medical records, is complete and accurate, and that the patient has and will be compliant with medical advise, and will notify me if unwilling or unable to do so. Martha Crain MD MD time with patient: Medical student, resident, or fellow present: No . PRIOR DATA: . 03/29/22 MRI-/+G brain IMPRESSION: 1. No acute intracranial findings. No evidence for arteriovenous malformation. No significant change since prior examination. 2. Improved findings of intracranial hypotension with decreased diffuse dural thickening and enhancement with congestion of the dural sinuses and venous structures. 3. Stable left retrocerebellar arachnoid cyst. Status post left suboccipital craniotomy. 4. Status post right sided ventricular shunt placement with moderately enlarged ventricles .. 04/12/22 / <cGregor 1. 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 IIH (idiopathic intracranial hypertension) [G93.2] 3. Obstructive hydrocephalus [G91.1] I had the opportunity of seeing Mr. Chatterjee in the [facility] today. He was last seen and shunt setting changed on 03/23/2021. He had tried 80, 120, and finally 200 on 03/23/2021. He was changed to 180 on 01/03/2022. He was seen by ophthalmology. He underwent an MRI today. The patient is s/p right [employer] shunt with a Codman Finoveram Medos programmable valve. He has a cylindrical valve with a prechamber configuration. There is persistent but less exuberant dural enhancement still suggestive of low pressure symptoms. Right-sided ventriculoperitoneal shunt catheter without kinking or discontinuity noted. SHUNTOGRAM nl documented in this encounter [facility] 04-12-2022 History of Present illness Narrative REASON FOR VISIT Armando Chatterjee presents to clinic today for a Follow-Up Patient visit. Chief Complaint Follow-up HISTORY OF PRESENT ILLNESS HPI 57 year old man with migraine with aura and without status migrainosus, not intractable presents today for an MRI review. Patient reports no changes in vision since his last visit. He states he has had a few episodes of kaleidescope vision and it lasted for about 15 minutes. He complains of pressure behind the eyes and headaches that come and go. He also has constant dizziness, especially when he goes from sitting to standing. Denies new flashes/floaters, diplopia, and other ocular discomforts. Last edited by Nga Guzman on 04/12/2022 1:14 PM. Allergies, medications & history reviewed & updated by Nga Guzman REVIEW OF SYSTEMS Review of Systems Eyes: Positive for visual disturbance. Neurological: Positive for headaches. 10 minutes of face to face time was spent with patient performing the electrical cad technician work of this visit. REASON FOR VISIT Armando Chatterjee presents to clinic today for a Follow-Up Patient visit. Chief Complaint Follow-up HISTORY OF PRESENT ILLNESS HPI 57 year old man with migraine with aura and without status migrainosus, not intractable presents today for an MRI review. Patient reports no changes in vision since his last visit. He states he has had a few episodes of kaleidescope vision and it lasted for about 15 minutes. He complains of pressure behind the eyes and headaches that come and go. He also has constant dizziness, especially when he goes from sitting to standing. Denies new flashes/floaters, diplopia, and other ocular discomforts. Last edited by Nga Guzman on 04/12/2022 1:14 PM. Allergies, medications & history reviewed & updated by Martha Crain MD REVIEW OF SYSTEMS Review of Systems Eyes: Positive for visual disturbance. Neurological: Positive for headaches. 10 minutes of face to face time was spent with patient performing the electrical cad technician work of this visit. CRANIAL NERVES V1: Corneal sensory reflex intact B/L. V: Sensation of V1-V3 intact bilaterally to LT, PP VII: normal facial symmetry and strength, no ptosis VIII: Hearing to finger rub is mildly diminished AD due to prior dss and Sy. is intact IX/X: Palate elevation is symmetrical, no hoarseness of speech XI: sternocleidomastoid muscles NL strenth XII: Tongue midline when protruding; No fasiculations . HVF: 30-2, 02/22/2022 OD Reliability good Fovea: NL 36dB Blind spot: NL Description: NL with a few far peripheral trial lens artifact spots. OS Reliability excellent Fovea: NL 36dB Blind spot: NL Description: NL Assessment: OU NL . 02/22/22 HPI Armando Chatterjee is a 57 year old man with hydrocephalus secondary to a posterior fossa arachnoid cyst (s/p craniotomy 2000, [employer] shunt in 2000 as well, two months post-op) who is present today for neuro-ophthalmic evaluation of intermittent blurred vision in both eyes, referred by Simi Mcwilliams MD. The patient states he has been experiencing headaches since 2013. He went on to have surgery for ruptured disc in his neck which was thought to be the cause of his headaches, but headache did not improve. Also in 2013, he began to experience transient vision loss (blurred vision) which seems to be present mostly in the left eye, and always temporally. When he experiences blurred vision in his right eye, it always appears nasally. Blurred vision can be monocular or binocular, and can coincide with headache and throbbing in the face and head. The patient states he has no other concerning health issues. BP usually runs normal per patient. He complains of longstanding high pitched ringing in (right ear more than the left) but he does feel this is worsening lately. He has no diplopia, vision black outs, or other visual concerns today. HAs origin is mainly on the left side and sometimes the origin can be elsewhere. RAYMUNDO sometimes is accompanied by N/V. No photophobia or sonophobia. A couple of times he had a kaleidoscope hallucination in his peripheral vision which lasts 10 minutes, he can't say whether the hallucination or the headache came first. His brother has migraine. His mother didn't have migraine but had 3 aneurysms. 02/22/22 A/P His physical exam is unremarkable. He doesn't have dry eyes. Migraine with occasional visual aura. I suspect that his transient blurred vision episodes are migraine phenomena rather than just tear film breakup. A: I think his symptoms are migraine in origin, and he does have migraine with occasional fortification spectrum. The migraines are so few that prophylactic Rx isn't necessary. He could use OTC naproxen as an abortant for the RAYMUNDO. New onset migraine mandates neuroimaging: MRI-/+G brain, RV a few days later to review the result. 04/12/22 He's here to review the MRI brain result. Rx is B21, MgO, meltonin. He increased the melatonin to 5 mg at bedtime. -MRI 03/29/22 Signs of high ICP decreasing, still enlarged ventricles, VPS in good position. Patient reports no changes in vision. I reviewed the images and agree with the report. -He has had a few episodes of kaleidescope vision (ie, migraine visual aura) and it lasted for about 15 minutes (typical amount of time for an aura). -He complains of pressure behind the eyes and headaches that come and go. That latter complaint is classic migraine visual aura. Plan: -The MgO isn't helping so stop using it. -Try nortriptyline 25 mg at bedtime as migraine prophylxis. If after 1 week he notices no improvement then double the dose. This will also help his trouble sleeping. Continue the Melatonin but increase to 10 mg at bedtime. RV 2 weeks to assess headache. Chronic daily headache Plan: consult neurology the apt of which is 05/11/22 w/Dr. Josiane Cabrales. . I interviewed and examined the patient, and formulated the assessment and plan. I discussed the diagnoses, treatments, and plans, with the patient, who expressed understanding and agreement. All questions were answered. This assessment and plan are based on the assumption that the information provided to me by the patient, and from past medical records, is complete and accurate, and that the patient has and will be compliant with medical advise, and will notify me if unwilling or unable to do so. Martha Crain MD MD time with patient: Medical student, resident, or fellow present: No . PRIOR DATA: . 03/29/22 MRI-/+G brain IMPRESSION: 1. No acute intracranial findings. No evidence for arteriovenous malformation. No significant change since prior examination. 2. Improved findings of intracranial hypotension with decreased diffuse dural thickening and enhancement with congestion of the dural sinuses and venous structures. 3. Stable left retrocerebellar arachnoid cyst. Status post left suboccipital craniotomy. 4. Status post right sided ventricular shunt placement with moderately enlarged ventricles .. 04/12/22 / <cGregor 1. 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 IIH (idiopathic intracranial hypertension) [G93.2] 3. Obstructive hydrocephalus [G91.1] I had the opportunity of seeing Mr. Chatterjee in the Neurosurgery Outpatient [facility] today. He was last seen and shunt setting changed on 03/23/2021. He had tried 80, 120, and finally 200 on 03/23/2021. He was changed to 180 on 01/03/2022. He was seen by ophthalmology. He underwent an MRI today. The patient is s/p right RIGGING [employer]EMAN shunt with a [employer] Medos programmable valve. He has a cylindrical valve with a prechamber configuration. There is persistent but less exuberant dural enhancement still suggestive of low pressure symptoms. Right-sided ventriculoperitoneal shunt catheter without kinking or discontinuity noted. SHUNTOGRAM nl documented in this encounter [facility] 03-29-2022 History of Present illness Narrative Associated Order(s): PROGRAM BRAIN & SPINAL FLUID SHUNT Post-Procedure Diagnose(s): S/P RIGGING FOREMAN shunt; IIH (idiopathic intracranial hypertension); Obstructive hydrocephalus I had the opportunity of seeing Mr. Chatterjee in the Neurosurgery Outpatient Clinic today. He was last seen and shunt setting changed on 03/23/2021. He had tried 80, 120, and finally 200 on 03/23/2021. He was changed to 180 on 01/03/2022. He was seen by ophthalmology. He underwent an MRI today. The patient is s/p right RIGGING [employer]EMAN shunt with a [employer] Ha[employer] Medos programmable valve. He has a cylindrical valve with a prechamber configuration. He notes no change in his RAYMUNDO and dizziness symptoms since the shunt adjustment. As you recall the patient is a 56-year-old gentleman with a history of headaches. He was evaluated with imaging and found to have hydrocephalus thought secondary to a posterior fossa arachnoid cyst. In 2000 he craniotomy for cyst decompression which was not effective, and later underwent right RIG[employer]ING [employer]EM[employer] shunt insertion. He then underwent several adjustments to the shunt valve settings for the next 1-2 years he thought was related to the size of the ventricles, but he felt headache free following the shunt surgery. He was asymptomatic until approximately 2013. At that time his headaches returned. He underwent a second cervical spine surgery in 2013 which did not hep the RAYMUNDO. The headaches have remained severe. There is a constant daily pressure RAYMUNDO. They are worse at the end of the day, with severe throbbing of the head and hands that feels like a heartbeat. These are daily. They occasionally happen at night and in the morning. He is able to continue daily activities. He is never headache free. Headaches occur when he is seated or lying down. Headaches are throbbing. They do not localize consistently. There are associated with photophobia and nausea. He does notice visual obscurations including flashing lights without regard to his headaches. He has a history of tinnitus and right-sided hearing loss. He does have a history of multiple concussions. His history of spinal cord injury and is status post anterior cervical diskectomy and fusion in 2005 and 2013. He has had constant daily RAYMUNDO since around 2013, global and pressure-like, worse at the end of the day, becomes throbing, heartbeat-like, includes throbbing of the hands. He has episodes of visual blurring on the left with scintillations, unrelated to headaches. He has episodes of dizziness without RAYMUNDO, Of note, He noted no particular RAYMUNDO with getting up in the middle of the night for the bathroom, but does after coming back to bed and rolling over at night. Since last adjustment to 200 he has noted headaches had intially improved and now has mild but throbbing RAYMUNDO, 3-4 times per week. Left > right, frontal, last 2-6 hours, resolve spontaneously. No other associated symptoms. Still much improved from prior to shunt setting change in March. He notes dizziness and vertigo and imbalance since adjustment was made. Associated with movements, laying to standing. He will occasional fall without using some support. Dizziness and RAYMUNDO are stable since the spring. Imaging: I had the opportunity to review the patient's most recent imaging which were performed today, and compare them to previous images from 12/15/2020. There is persistent but less exuberant dural enhancement still suggestive of low pressure symptoms. EXAM: XR SHUNTOGRAM RIGGING FOREMAN SKULL/CHEST/ABDOMEN, 01/03/2022 14:38 PM IMPRESSION IMPRESSION: Right-sided ventriculoperitoneal shunt catheter without kinking or discontinuity noted. PROGRAM BRAIN & SPINAL FLUID SHUNT Performed by: Simi Mcwilliams MD Authorized by: Simi Mcwilliams MD I adjusted the patient's ventriculoperitoneal shunt Codman Hakim Medos programmable valve from 180 to 200 X-ray obtained: no Impression: Patient with RAYMUNDO and dizziness unchanged from December despite setting of 180. MRI today with persistent dural enhancement improved from 2011 but still concerning for hypotension. Plan: Shunt adjusted back to 200. follow up as needed with update, may be telemed. documented in this encounter [facility] 02-22-2022 History of Present illness Narrative REASON FOR VISIT Armando Chatterjee presents to clinic today for a New Patient visit. Chief Complaint New Patient HISTORY OF PRESENT ILLNESS HPI Armando Chatterjee is a 57 year old man with hydrocephalus secondary to a posterior fossa arachnoid cyst (s/p craniotomy 2000, RIGGING [employer]EMAN shunt in 2000 as well, two months post-op) who is present today for neuro-ophthalmic evaluation of intermittent blurred vision in both eyes, referred by Simi Mcwilliams MD. The patient states he has been experiencing headaches since 2013. He went on to have surgery for ruptured disc in his neck which was thought to be the cause of his headaches, but headache did not improve. Also in 2013, he began to experience transient vision loss (blurred vision) which seems to be present mostly in the left eye, and always temporally. When he experiences blurred vision in his right eye, it always appears nasally. Blurred vision can be monocular or binocular, and can coincide with headache and throbbing in the face and head. The patient states he has no other concerning health issues. BP usually runs normal per patient. He complains of longstanding high pitched ringing in (right ear more than the left) but he does feel this is worsening lately. He has no diplopia, vision black outs, or other visual concerns today. Outside Ocular Care: Patient follows with Dr. Rasmussen OD in [place], [place] for routine eye exams, although he is overdue currently. Patient last dilated eye exam was completed over four years ago. Care Team: Referring: Simi Mcwilliams MD Ophth/Optom: Dr Valery OD in [facility] PCP: Simi Potts MD Neurologist: Not established Neurosurgery: Simi Mcwilliams MD Last edited by Heather Franco on 02/22/2022 10:31 AM. Allergies, medications & history reviewed & updated by Heather Franco No past medical history on file. REVIEW OF SYSTEMS Review of Systems Constitutional: Negative. HENT: Positive for hearing loss (s/p ear surgery) and tinnitus. Eyes: Positive for visual disturbance. Respiratory: Negative. Cardiovascular: Negative. Gastrointestinal: Positive for nausea (with headache). Genitourinary: Negative. Musculoskeletal: Negative. Skin: Negative. Allergic/Immunologic: Positive for environmental allergies. Neurological: Positive for dizziness (constant, worse in mornings), light-headedness and headaches. Hematological: Negative. Psychiatric/Behavioral: Negative. 40 minutes of face to face time was spent with patient performing the electrical cad technician work of this visit. REASON FOR VISIT Armando Chatterjee presents to clinic today for a New Patient visit. Chief Complaint New Patient HISTORY OF PRESENT ILLNESS HPI Armando Chatterjee is a 57 year old man with hydrocephalus secondary to a posterior fossa arachnoid cyst (s/p craniotomy 2000, RIGGING [employer]EMAN shunt in 2000 as well, two months post-op) who is present today for neuro-ophthalmic evaluation of intermittent blurred vision in both eyes, referred by Simi Mcwilliams MD. The patient states he has been experiencing headaches since 2013. He went on to have surgery for ruptured disc in his neck which was thought to be the cause of his headaches, but headache did not improve. Also in 2013, he began to experience transient vision loss (blurred vision) which seems to be present mostly in the left eye, and always temporally. When he experiences blurred vision in his right eye, it always appears nasally. Blurred vision can be monocular or binocular, and can coincide with headache and throbbing in the face and head. The patient states he has no other concerning health issues. BP usually runs normal per patient. He complains of longstanding high pitched ringing in (right ear more than the left) but he does feel this is worsening lately. He has no diplopia, vision black outs, or other visual concerns today. Outside Ocular Care: Patient follows with Dr. Valery OD in [place], [place] for routine eye exams, although he is overdue currently. Patient last dilated eye exam was completed over four years ago. Care Team: Referring: Simi Mcwilliams MD Ophth/Optom: Dr Valery OD in [facility] PCP: Simi Potts MD Neurologist: Not established Neurosurgery: Simi Mcwilliams MD Last edited by Heather Franco on 02/22/2022 10:31 AM. Allergies, medications & history reviewed & updated by Martha Crain MD No past medical history on file. REVIEW OF SYSTEMS Review of Systems Constitutional: Negative. HENT: Positive for hearing loss (s/p ear surgery) and tinnitus. Eyes: Positive for visual disturbance. Respiratory: Negative. Cardiovascular: Negative. Gastrointestinal: Positive for nausea (with headache). Genitourinary: Negative. Musculoskeletal: Negative. Skin: Negative. Allergic/Immunologic: Positive for environmental allergies. Neurological: Positive for dizziness (constant, worse in mornings), light-headedness and headaches. Hematological: Negative. Psychiatric/Behavioral: Negative. 40 minutes of face to face time was spent with patient performing the electrical cad technician work of this visit. . Medical Decision Making: I have reviewed the CC, HPI, PMH, allergies, medications, ROS, electrical cad technician's notes & exam, which I amended as necessary. For a new patient I reviewed relevant prior medical records, lab test results and imaging studies when available both in [facility] and outside [facility]. For f/u patient, I reviewed my H&P from [facility] and relevant new medical records and test results since [facility] in [facility]. 02/22/2022. KYLAH PLUMMER . PE: CRANIAL NERVES V1: Corneal sensory reflex intact B/L. V: Sensation of V1-V3 intact bilaterally to LT, PP VII: normal facial symmetry and strength, no ptosis VIII: Hearing to finger rub is mildly diminished AD due to prior dss and Sy. is intact IX/X: Palate elevation is symmetrical, no hoarseness of speech XI: sternocleidomastoid muscles NL strenth XII: Tongue midline when protruding; No fasiculations . HVF: 30-2, 02/22/2022 OD Reliability good Fovea: NL 36dB Blind spot: NL Description: NL with a few far peripheral trial lens artifact spots. OS Reliability excellent Fovea: NL 36dB Blind spot: NL Description: NL Assessment: OU NL . 02/22/22 HPI Armando Chatterjee is a 57 year old man with hydrocephalus secondary to a posterior fossa arachnoid cyst (s/p craniotomy 2000, RIGGING FOREMAN shunt in 2000 as well, two months post-op) who is present today for neuro-ophthalmic evaluation of intermittent blurred vision in both eyes, referred by Simi Mcwilliams MD. The patient states he has been experiencing headaches since 2013. He went on to have surgery for ruptured disc in his neck which was thought to be the cause of his headaches, but headache did not improve. Also in 2013, he began to experience transient vision loss (blurred vision) which seems to be present mostly in the left eye, and always temporally. When he experiences blurred vision in his right eye, it always appears nasally. Blurred vision can be monocular or binocular, and can coincide with headache and throbbing in the face and head. The patient states he has no other concerning health issues. BP usually runs normal per patient. He complains of longstanding high pitched ringing in (right ear more than the left) but he does feel this is worsening lately. He has no diplopia, vision black outs, or other visual concerns today. HAs origin is mainly on the left side and sometimes the origin can be elsewhere. RAYMUNDO sometimes is accompanied by N/V. No photophobia or sonophobia. A couple of times he had a kaleidoscope hallucination in his peripheral vision which lasts 10 minutes, he can't say whether the hallucination or the headache came first. His brother has migraine. His mother didn't have migraine but had 3 aneurysms. 02/22/22 A/P His physical exam is unremarkable. He doesn't have dry eyes. Migraine with occasional visual aura. I suspect that his transient blurred vision episodes are migraine phenomena rather than just tear film breakup. A: I think his symptoms are migraine in origin, and he does have migraine with occasional fortification spectrum. The migraines are so few that prophylactic Rx isn't necessary. He could use OTC naproxen as an abortant for the RAYMUNDO. New onset migraine mandates neuroimaging: MRI-/+G brain, RV a few days later to review the result. Chronic daily headache Plan: consult neurology documented in this encounter [facility] 01-20-2022 History of Present illness Narrative Timely Error documented in this encounter [facility] 01-03-2022 History of Present illness Narrative Associated Order(s): PROGRAM BRAIN & SPINAL FLUID SHUNT Post-Procedure Diagnose(s): Arachnoid cyst; S/P RIGGING FOREMAN shunt; Presence of cerebrospinal fluid drainage device I had the opportunity of seeing Mr. Chatterjee in the Neurosurgery Outpatient Clinic today. He was last seen and shunt setting changed on 03/23/2021. He had tried 80, 120, and finally 200 on 03/23/2021. The patient is s/p right RIGGING FOREMAN shunt with a [employer] programmable valve. He has a cylindrical valve with a prechamber configuration. As you recall the patient is a 56-year-old gentleman with a history of headaches. He was evaluated with imaging and found to have hydrocephalus thought secondary to a posterior fossa arachnoid cyst. In 2000 he craniotomy for cyst decompression which was not effective, and later underwent right RIGGING FOREMAN shunt insertion. He then underwent several adjustments to the shunt valve settings for the next 1-2 years he thought was related to the size of the ventricles, but he felt headache free following the shunt surgery. He was asymptomatic until approximately 2013. At that time his headaches returned. He underwent a second cervical spine surgery in 2013 which did not hep the RAYMUNDO. The headaches have remained severe. There is a constant daily pressure RAYMUNDO. They are worse at the end of the day, with severe throbbing of the head and hands that feels like a heartbeat. These are daily. They occasionally happen at night and in the morning. He is able to continue daily activities. He is never headache free. Headaches occur when he is seated or lying down. Headaches are throbbing. They do not localize consistently. There are associated with photophobia and nausea. He does notice visual obscurations including flashing lights without regard to his headaches. He has a history of tinnitus and right-sided hearing loss. He does have a history of multiple concussions. His history of spinal cord injury and is status post anterior cervical diskectomy and fusion in 2005 and 2013. He has had constant daily RAYMUNDO since around 2013, global and pressure-like, worse at the end of the day, becomes throbing, heartbeat-like, includes throbbing of the hands. He has episodes of visual blurring on the left with scintillations, unrelated to headaches. He has episodes of dizziness without RAYMUNDO, Of note, He noted no particular RAYMUNDO with getting up in the middle of the night for the bathroom, but does after coming back to bed and rolling over at night. Since last adjustment to 200 he has noted headaches had intially improved and now has mild but throbbing RAYMUNDO, 3-4 times per week. Left > right, frontal, last 2-6 hours, resolve spontaneously. No other associated symptoms. Still much improved from prior to shunt setting change in March. He notes dizziness and vertigo and imbalance since adjustment was made. Associated with movements, laying to standing. He will occasional fall without using some support. Dizziness and RAYMUNDO are stable since the spring. Imaging: I had the opportunity to review the patient's most recent imaging which were performed today. His shunt series shows no disconnection, malposition, and proper shunt setting of 200 PROGRAM BRAIN & SPINAL FLUID SHUNT Performed by: Simi Mcwilliams MD Authorized by: Simi Mcwilliams MD Baldev [employer]u Medos programmable valve from 200 to 180 X-ray obtained: yes Impression: Patient with improved RAYMUNDO but more dizziness and imbalance since shunt setting in March. Not sure if this is persistent low pressure symptoms, or new high pressure symptoms. Still much improved overall compared to the setting of 160. Plan: Shunt adjust as above, follow up in 1-2 weeks with update, may be telemed. documented in this encounter [facility] Evaluation note Diagnosis Arachnoid cyst- Primary Cerebral cysts S/P RIGGING FOREMAN shunt Presence of cerebrospinal fluid drainage device Presence of cerebrospinal fluid drainage device [facility] Diagnosis Migraine with aura and without status migrainosus, not intractable- Primary Migraine with aura, without mention of intractable migraine without mention of status migrainosus Chronic daily headache Headache [facility] Diagnosis S/P RIGGING FOREMAN shunt- Primary Presence of cerebrospinal fluid drainage device IIH (idiopathic intracranial hypertension) Benign intracranial hypertension Obstructive hydrocephalus [facility] Diagnosis Primary insomnia- Primary Persistent disorder of initiating or maintaining sleep Migraine with aura and without status migrainosus, not intractable Migraine with aura, without mention of intractable migraine without mention of status migrainosus [facility] Diagnosis Migraine with aura and without status migrainosus, not intractable- Primary Migraine with aura, without mention of intractable migraine without mention of status migrainosus [facility] Diagnosis Intractable chronic migraine without aura and without status migrainosus- Primary Chronic migraine without aura, with intractable migraine, so stated, without mention of status migrainosus Chronic daily headache Headache Migraine with aura and without status migrainosus, not intractable Migraine with aura, without mention of intractable migraine without mention of status migrainosus Cervicocranial syndrome [facility] Diagnosis Asymmetric SNHL (sensorineural hearing loss)- Primary Sensorineural hearing loss, asymmetrical Imbalance Abnormality of gait Pulsatile tinnitus of both ears BPPV (benign paroxysmal positional vertigo), right [facility] Diagnosis Pulsatile tinnitus of both ears [facility] Diagnosis Asymmetric SNHL (sensorineural hearing loss) Sensorineural hearing loss, asymmetrical [facility] Diagnosis Arachnoid cyst- Primary Cerebral cysts [facility] Diagnosis Intractable chronic migraine without aura and without status migrainosus- Primary Chronic migraine without aura, with intractable migraine, so stated, without mention of status migrainosus Migraine with aura and without status migrainosus, not intractable Migraine with aura, without mention of intractable migraine without mention of status migrainosus Cervicocranial syndrome [facility] Diagnosis ERRONEOUS ENCOUNTER--DISREGARD- Primary [facility] Diagnosis Intractable chronic migraine without aura and without status migrainosus- Primary Chronic migraine without aura, with intractable migraine, so stated, without mention of status migrainosus Cervicocranial syndrome Dizziness and giddiness [facility] Diagnosis Migraine without aura and without status migrainosus, not intractable- Primary Migraine without aura, without mention of intractable migraine without mention of status migrainosus [facility] Diagnosis Gastroesophageal reflux disease with esophagitis without hemorrhage documented in this encounter [facility] Work Phone: Reason for referral (narrative)* Consultation (Routine) - New Request Specialty Diagnoses / Procedures Referred By Arlet francois Referred To Contact Neurology Diagnoses Chronic daily headache Martha Crain MD [address] [place] [address] Referral ID Status Reason Start Date Expiration Date V isits Requested Visits Authorized [id number] New Request 02/22/2022 03/19/2023 1 1 * MRI/CAT Scan (Routine) - Authorized - Specialty Diagnoses / Procedures Referred By Contac t Referred To Contact Diagnoses Migraine with aura and without status migrainosus, not intractable Procedures MRI BRAIN WITH AND WITHOUT CONTRAST MO MRI BRAIN COMBO Martha Crain MD [address] [place] [address] Referral ID Status Reason Start Date Expiration Date Visits Requested Visits Authorized [id number] Authorized - 02/22/2022 03/19/2023 1 1 [facility] for visit Narrative* Auth/Cert (Routine) Specialty Diagnoses / Procedures Referred By Arlet t Referred To Contact Diagnoses Gastro-esophageal reflux disease with esophagitis, without bleeding Procedures MO ESOPHAGOGASTRODUODENOSCOPY TRANSORAL DIAGNOSTIC MO EGD TRANSORAL BIOPSY SINGLE/MULTIPLE [address] [address] Phone: tel:[phone] fax: Referral ID Status Reason Start Date Expiration Date Visits Re quested Visits Authorized [id number] 1 1 [facility] Work Phone: Summary Purpose Family History No Family History Records FoundNo Family History Records FoundNo Family History Records FoundNo Family History Records FoundNo Family History Records FoundNo Family History Records FoundNo Family History Records FoundNo Family History Records Found Advance Directives No Advanced Directives Records FoundNo Advanced Directives Records FoundNo Advanced Directives Records FoundNo Advanced Directives Records FoundNo Advanced Directives Records FoundNo Advanced Directives Records FoundNo Advanced Directives Records FoundNo Advanced Directives Records Found Reason for Referral Specialty Diagnoses / Procedures Referred By Arlet t Referred To Contact Diagnoses Arachnoid cyst S/P RIGGING FOREMAN shunt Presence of cerebrospinal fluid drainage device Procedures XR SHUNTOGRAM RIGGING FOREMAN SKULL/CHEST/ABDOMEN XR SHUNTOGRAM Simi Mcwilliams MD [address] [place] [address] Referral ID Status Reason Start Date Expiration Date V isits Requested Visits Authorized [id number] New Request 01/03/2022 01/28/2023 1 1 Specialty Diagnoses / Procedures Referred By Contac t Referred To Contact Physical Therapy Diagnoses Intractable chronic migraine without aura and without status migrainosus Cervicocranial syndrome Josiane Cabrales MD [address] [place] [address] Referral ID Status Reason Start Date Expiration Date V isits Requested Visits Authorized [id number] New Request 05/11/2022 06/05/2023 1 1 Specialty Diagnoses / Procedures Referred By Contac t Referred To Contact Diagnoses Asymmetric SNHL (sensorineural hearing loss) Procedures MRI INTERNAL AUDITORY CANAL WITH AND WITHOUT CONTRAST MO MRI BRAIN COMBO Ade Us APRN-CNP [address] [place], [place] [address] Referral ID Status Reason Start Date Expiration Date V isits Requested Visits Authorized [id number] New Request 09/13/2022 10/08/2023 1 1 Specialty Diagnoses / Procedures Referred By Contac t Referred To Contact Diagnoses Pulsatile tinnitus of both ears Procedures CT ANGIO BRAIN/NECK MO CT ANGIO,HEAD COMBO,INCL IMAGE PROCESS MO CT ANGIO,NECK COMBO,INCL IMAGE PROCESS Ade Us APRN-CNP [address] [address] Referral ID Status Reason Start Date Expiration Date V isits Requested Visits Authorized [id number] New Request 09/13/2022 10/08/2023 1 1 Specialty Diagnoses / Procedures Referred By Contac t Referred To Contact Physical Therapy Diagnoses Imbalance Ade Us APRN-CNP [address] [address] Referral ID Status Reason Start Date Expiration Date V isits Requested Visits Authorized [id number] New Request 09/13/2022 10/08/2023 1 1 Scheduling Instructions Please schedule this patient at one of the following locations: Outpatient Rehabilitation [facility] [address] [place] [address] [address] [place] [address] FAX Outpatient Rehabilitation [facility] [address] [facility] [address] [place], [place] [id number] FAX Outpatient Rehabilitation [facility] [address] [facility] [address] [place], [place] [address] FAX [facility] [address] [place], [place] [id number] FAX Physical Therapy at Outpatient Care [address] [address] FAX Referral ID Status Reason Start Date Expiration Date Visits Re quested Visits Authorized [id number] Closed 09/13/2022 10/08/2023 1 1 Referral ID Status Reason Start Date Expiration Date Visits Re quested Visits Authorized [id number] Closed 09/13/2022 10/08/2023 1 1 Specialty Diagnoses / Procedures Referred By Arlet francois Referred To Contact Christine Jarquin, SPECIFICATION MANAGER-SALESPERSON [employer] [address] [place] [address] Referral ID Status Reason Start Date Expiration Date Visits Re quested Visits Authorized [id number] Closed 1 1 Additional Source Comments (unrecognized sect ion and content) No Status Records FoundNo Status Records FoundNo Status Records FoundNo Status Records FoundNo Status Records FoundNo Status Records FoundNo Status Records FoundNo Status Records Found INFORMATION SOURCE (unrecogn ized section and content) DATE CREATED AUTHOR 09/01/2017 [facility] DATE CREATED AUTHOR AUTHOR'S ORGANIZ ATION 09/06/2017 [facility] DATE CREATED AUTHOR AUTHOR'S ORGANIZ ATION 12/19/2017 [facility] DATE CREATED AUTHOR AUTHOR'S ORGANIZ ATION 05/16/2018 [facility] DATE CREATED AUTHOR AUTHOR'S ORGANIZ ATION 05/12/2019 [employer] DATE CREATED AUTHOR AUTHOR'S ORGANIZ ATION 04/23/2021 [facility] DATE CREATED AUTHOR AUTHOR'S ORGANIZ ATION 01/09/2023 [facility] DATE CREATED AUTHOR AUTHOR'S ORGANIZ ATION 01/10/2024 [facility] Reason for Visit (unrecogniz ed section and content) Reason Comments Follow-up Specialty Diagnoses / Procedures Referred By Contac t Referred To Contact Diagnoses Arachnoid cyst S/P RIGGING FOREMAN shunt Presence of cerebrospinal fluid drainage device Procedures XR SHUNTOGRAM RIGGING FOREMAN SKULL/CHEST/ABDOMEN XR SHUNTOGRAM Simi Mcwilliams MD [address] [place] [address] Referral ID Status Reason Start Date Expiration Date V isits Requested Visits Authorized [id number] New Request 01/03/2022 01/28/2023 1 1 Reason Comments New Patient Specialty Diagnoses / Procedures Referred By Contac t Referred To Contact Ophthalmology Diagnoses Arachnoid cyst S/P RIGGING FOREMAN shunt Obstructive hydrocephalus Simi Mcwilliams MD [address] [place] [address] Referral ID Status Reason Start Date Expiration Date V isits Requested Visits Authorized [id number] New Request 02/15/2022 03/12/2023 1 1 Reason Comments Follow-up Specialty Diagnoses / Procedures Referred By Contac t Referred To Contact Diagnoses Migraine with aura and without status migrainosus, not intractable Procedures MRI BRAIN WITH AND WITHOUT CONTRAST MO MRI BRAIN COMBO Martha Crain MD [address] [place] [address] Referral ID Status Reason Start Date Expiration Date Visits Re quested Visits Authorized [id number] Closed 02/22/2022 03/19/2023 1 1 Reason Comments New Patient Specialty Diagnoses / Procedures Referred By Contac t Referred To Contact Neurology Diagnoses Chronic daily headache Martha Crain MD [address] [place] [address] Referral ID Status Reason Start Date Expiration Date V isits Requested Visits Authorized [id number] New Request 02/22/2022 03/19/2023 1 1 Reason Comments Dizziness Patient states that he has had dizzy episodes since 2013, Also having ringing in the right ear for a while now. Patient did have surgery on the right ear in 2000. Specialty Diagnoses / Procedures Referred By Arlet francois Referred To Contact Otolaryngology Diagnoses Dizziness and giddiness Ringing in ears, right Britton Christine Olmedo, SPECIFICATION MANAGER-SALESPERSON [employer] [address] [facility] [place] [address] [place] [address] Referral ID Status Reason Start Date Expiration Date V isits Requested Visits Authorized [id number] New Request 08/07/2022 09/01/2023 1 1 Specialty Diagnoses / Procedures Referred By Arlet francois Referred To Contact Diagnoses Pulsatile tinnitus of both ears Procedures CT ANGIO BRAIN/NECK MO CT ANGIO,HEAD COMBO,INCL IMAGE PROCESS MO CT ANGIO,NECK COMBO,INCL IMAGE PROCESS Ade Us SPECIFICATION MANAGER-S[employer]ESPERSON [employer] [address] [facility] [address] [place] [address] Referral ID Status Reason Start Date Expiration Date Visits Re quested Visits Authorized [id number] Closed 09/13/2022 10/08/2023 1 1 Specialty Diagnoses / Procedures Referred By Arlet francois Referred To Contact Diagnoses Asymmetric SNHL (sensorineural hearing loss) Procedures MRI INTERNAL AUDITORY CANAL WITH AND WITHOUT CONTRAST MO MRI BRAIN COMBO Ade Us SPECIFICATION MANAGER-SALESPERSON [employer] [address] [facility] [address] [place] [address] Referral ID Status Reason Start Date Expiration Date Visits Re quested Visits Authorized [id number] Closed 09/13/2022 10/08/2023 1 1 Reason Comments MRI Results Shunt check Care Teams (unrecognized sec tion and content) [employer] Hand Relationship Specialty Start Date End Date Simi Potts MD [address] [facility] [address] [place] [address] PCP - General Family Medicine 09/30/20 [employer] Relationship Specialty Start Date End Date Simi Potts MD [address] [facility] [address] [place] [address] PCP - General Family Medicine 09/30/20 [employer] Relationship Specialty Start Date End Date Simi Potts MD [address] [facility] [address] [place] [address] PCP - General Family Medicine 09/30/20 [employer] Relationship Specialty Start Date End Date Simi Potts MD [address] [facility] [address] [place] [address] PCP - General Family Medicine 09/30/20 [employer] Relationship Specialty Start Date End Date Simi Potts MD [address] [facility] [address] [place] [address] PCP - General Family Medicine 09/30/20 [employer] Relationship Specialty Start Date End Date Simi Potts MD [address] [facility] [address] [place] [address] PCP - General Family Medicine 09/30/20 [employer] Relationship Specialty Start Date End Date Simi Potts MD [address] [facility] [address] [place] [address] PCP - General Family Medicine 09/30/20 [employer] Relationship Specialty Start Date End Date Simi Potts MD [address] [facility] [address] [place] [address] PCP - General Family Medicine 09/30/20 [employer] Relationship Specialty Start Date End Date Simi Potts MD [address] [place] [address] [place] [address] PCP - General Family Medicine 09/30/20 [employer] Hand Relationship Specialty Start Date End Date Simi Potts MD [address] [place] [address] [place] [address] PCP - General Family Medicine 09/30/20 [employer] Relationship Specialty Start Date End Date Simi Potts MD [address] [place] [address] [place] [address] PCP - General Family Medicine 09/30/20 [employer] Relationship Specialty Start Date End Date Simi Potts MD [address] [place] [address] [place] [address] PCP - General Family Medicine 09/30/20 [employer] Hand Relationship Specialty Start Date End Date Simi Potts MD [address] [place] [address] [place] [address] PCP - General Family Medicine 09/30/20 [employer] Hand Relationship Specialty Start Date End Date Simi Potts MD [address] [place] [address] [place] [address] PCP - General Family Medicine 09/30/20 Stores [employer] Hand Relationship Specialty Start Date End Date Simi Potts MD [address] [place] [address] [place] [address] PCP - General Family Medicine 09/30/20 [employer] Relationship Specialty Start Date End Date Simi Potts MD [address] [place] [address] [place] [address] PCP - General Family Medicine 09/30/20 [employer] Relationship Specialty Start Date End Date Simi Potts MD [address] [facility] [address] [place] [address] PCP - General Family Medicine 11/30/23 FOR RECORDS PERTAINING TO PATIENTS WHO ARE OR HAVE BEEN ENROLLED IN A CHEMICAL DEPENDENCY/SUBSTANCEABUSE PROGRAM, SOME INFORMATION MAY BE OMITTED. This clinical summary was aggregated from multiple sources. Caution should be exercised in using it in the provision of clinical care. This summary normalizes information from multiple sources, and as a consequence, information in this document may materially change the coding, format and clinical context of patient data. In addition, data may be omitted in some cases. CLINICAL DECISIONS SHOULD BE BASED ON THE PRIMARY CLINICAL RECORDS. [facility] [employer] [facility]. provides no warranty or guarantee of the accuracy or completeness of information in this document.
[2024-01-11 14:06] LABS: Anion Gap 5 (5-15); BUN 20 mg/dL (7-18); BUN/Creat Ratio 18.2 RATIO (10-20); Calcium,Total 8.9 mg/dL (8.5-10.1); Chloride 105 mmol/L (98-107); EST Glomerular Filtration Rate 73 mL/min (>60); Est Glom Filt Rate - Afr Amer 88 mL/min (>60); Estimated Creatinine Clearance 86.53 ml/min; Glucose 100 mg/dL (74-106); Potassium 3.6 mmol/L (3.5-5.1); Sodium Level 135 mmol/L (136-145)
[2024-01-11 14:14] VITALS: BP 165/81; PULSE 77; RESP 16; TEMP 36.8; O2SAT 98
[2024-01-11 15:00] VITALS: BP 168/87; PULSE 81; RESP 16; TEMP 36.6; O2SAT 99
[2024-01-11 15:05] LABS: Bacteria 0 SEEN /hpf (None Seen); Red Blood Cells-Urine 0 SEEN /hpf (0-5); Squamous Epithelial Cells - UA 0 SEEN /hpf (0-5); White Blood Cells 0 SEEN /hpf (0-5)
[2024-01-11 15:09] LABS: Color, Urine Yellow (Yellow); Glucose, Dipstick Normal (Normal); Ketone-Dipstick Negative (Negative); Leukocyte Esterase-Dipstick Negative /ul (Negative); Nitrite-Dipstick Negative (Negative); Occult Blood-Urine Negative /ul (Negative); Protein-Dipstick 15 mg/dl (Negative); Specific Gravity, Urine 1.025 (1.002-1.030); Urine Bilirubin Dipstick Negative (Negative); Urine Clarity Clear (Clear); Urine Urobilinogen Normal (Normal)
[2024-01-11 15:17] LABS: Mucous, Urine 2+ /hpf (<or=2+)
--- NOTE | 2024-01-11 15:43 | EX.ED.DYSGE1 ---
HPI History of Present Illness Chief Complaint: Other, Pain/Inj Narrative Narrative: Nontraumatic right lower back pain for the last 4 days states pain radiates to his groin into his testicles. No urinary symptoms. Saw his PCP yesterday treated with Cipro for likely epididymitis. Denies history of kidney stones. History of lumbar degeneration with back surgery in the past. Denies any allergies to any medications. Prior similar symptoms: No PFSH PFSH Medical History Former smoker Family hx of colon cancer h/o reattachment finger cyst on ear Cyst on brain shunt h/o right knee meniscus surgery Home Medications ?Medication ?Instructions ?Recorded ?Last Taken ?Type melatonin 3 mg capsule 3 mg PO HS PRN sleep 07/21/20 Unknown History atogepant 30 mg tablet (Qulipta) 30 mg PO DAILY 11/23/22 Unknown History magnesium oxide 400 mg (241.3 mg 400 mg PO DAILY 11/23/22 Unknown History magnesium) tablet mecobalamin (vitamin B12) 1,000 1,000 mcg PO DAILY 11/23/22 Unknown History mcg chewable tablet oxycodone-acetaminophen 5 mg-325 1 tab PO Q6H PRN PRN Pain 3 days 01/11/24 Unknown Rx mg tablet #12 TABLETS Allergy/AdvReac Type Severity Reaction Status Date / Time Latex, Natural Rubber Allergy Burning Verified 01/11/24 13:13 Sensation Family History Father Colon cancer, Onset Age: 50 at 50 Mother Hypertension Brother Colon polyp Surgical History History of back surgery History of neck surgery Hx of colonoscopy 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 History of brain surgery H/O removal of neck cyst Social History household members: spouse Smoking Status: Former smoker Tobacco: How many years used: 25 Electronic Cigarette Use: not used how long ago did patient quit smokin years second hand exposure: No alcohol intake: never substance use type: does not use what type of physical activity do you participate in: none do you feel safe at home: Yes ROS ROS ED Constitutional Constitutional ED: Denies chills, fever(s) or sweats Eyes Eyes: Denies change in vision ENT ENT ED: Denies dysphagia or sore throat Cardiovascular Cardiovascular: Denies chest pain, leg edema, palpitations or racing heartbeat Respiratory/Chest Respiratory/Chest: Denies cough, dyspnea or dyspnea on exertion Gastrointestinal Gastrointestinal: Denies abdominal pain, diarrhea, nausea or vomiting Genitourinary Genitourinary ED: Reports other Details: Pain into right upper scrotum ; Denies dysuria, hematuria or urinary frequency Musculoskeletal Musculoskeletal: Reports back pain; Denies extremity pain or neck pain Integumentary Denies rash or wounds Neurologic Neurologic: Denies headache(s), paresthesias or weakness EXAM Physical Exam Const Vital Signs: 01/11/24 13:13 01/11/24 14:14 01/11/24 14:25 Temperature 97.1 F L 98.2 F Temperature Source Temporal Oral Pulse Rate 74 77 Respiratory Rate 18 16 Respiratory Effort Normal Respiratory Pattern Normal Blood Pressure 170/90 H 165/81 H Blood Pressure Mean 116 109 Pulse Ox 100 98 Oxygen Delivery Method Room Air Room Air 01/11/24 15:00 Temperature 98 F Temperature Source Oral Pulse Rate 81 Respiratory Rate 16 Respiratory Effort Respiratory Pattern Blood Pressure 168/87 H Blood Pressure Mean 114 Pulse Ox 99 Oxygen Delivery Method Room Air Positive well nourished and well developed Constitutional Narrative: Uncomfortable, nontoxic General Appearance ED: well developed HEENT Reports moist mucous membranes normocephalic and atraumatic Eyes EOMs intact bilaterally and conjunctivae normal General Eye ED: Yes normal appearance of both eyes Neck no lymphadenopathy and supple General: Negative for tenderness Chest Wall Chest: Negative for tenderness Resp normal respiratory effort and normal air movement Effort and Inspection: symmetric chest movement; Negative for respiratory distress Cardio regular rate, regular rhythm and no murmurs Peripheral Pulses: pulses 2+ throughout GI normal to inspection, nondistended, normoactive bowel sounds and non-tender Palpation: Negative for guarding or rebound tenderness present Narrative: No scrotal swelling no epididymal tenderness bilaterally. No hernias palpated. Back/Spine no CVA tenderness and no thoracic nor lumbar tenderness Back/Spine Narrative: No rash. Extremity normal to inspection General Extremety ED: Negative for edema or tenderness General Extremity: Negative for edema Neuro oriented x3 and no sensory deficits noted Sensorium / Orientation: awake and alert Skin no rashes or lesions noted and no wounds MDM MDM MDM Narrative Medical decision making narrative: Interventions / MDM: Differential diagnosis: Flank pain, shingles, nephrolithiasis. Inguinal hernias. Diagnosis considered but do not suspect: No obstructive uropathy, My EKG interpretation: N/A Imaging independently reviewed and interpreted by myself: CT abdomen pelvis: No obstructive uropathy. Small renal stone left kidney. There is fat-containing inguinal hernias left greater than right. External documents reviewed: N/A Test considered but not ordered:N/A ED course: Patient uncomfortable back pain rating to his groin and testicle. There is no signs of torsion. Initially treated with Toradol renal stone protocol initiated. Shortly after reported increasing pain additional morphine Zofran was ordered. Patient treated for his pain workup negative for obstructive process fat-containing inguinal hernia has left greater than right. Symptoms are right sided. Does not hernia related no signs of incarceration no pain on palpation. Labs and urine were negative. Discussed with patient findings, incidental findings of hernia, pain more in the right side, I cannot really sedate pain directly over the fat area therefore lower concerns for incarcerated fat hernia. He will monitor for rash for potential shingles. Prescription for pain control. He is given follow-up with surgery as an outpatient. All questions were answered. Re-evaluation: stable Disposition discussed with patient/family/significant other: Patient significant other Case discussed with consulting clinician: N/A This note was generated with [employer] dictation software. It may contain incorrect words, spelling, and punctuation that were not noted in checking the note before signing. Lab Data Attestation: I reviewed the patient's lab results. Labs: Laboratory Results - last 24 hr 01/11/24 01/11/24 13:35 14:59 WBC 5.4 RBC 5.22 Hgb 14.9 Hct 44.6 MCV 85.4 MCH 28.5 MCHC 33.4 RDW Std Deviation 41.1 RDW Coeff of Theresa 13.2 Plt Count 252 MPV 10.0 Immature Gran % (Auto) 0.200 Neut % (Auto) 58.1 Lymph % (Auto) 25.2 [place] % (Auto) 9.6 Eos % (Auto) 6.3 H Baso % (Auto) 0.6 Absolute Neuts (auto) 3.1 Absolute Lymphs (auto) 1.36 Nucleated RBC % 0 Sodium 135 L Potassium 3.6 Chloride 105 Carbon Dioxide 25.0 Anion Gap 5 BUN 20 H Creatinine 1.10 Estim Creat Clear Calc 86.53 Est GFR (MDRD) Af Amer 88 Est GFR (MDRD) Non-Af 73 BUN/Creatinine Ratio 18.2 Glucose 100 Calcium 8.9 Urine Color Yellow Urine Clarity Clear Urine pH 6.0 Ur Specific [place] 1.025 Urine Protein 15 H Urine Glucose (UA) Normal Urine Ketones Negative Urine Occult Blood Negative Urine Nitrite Negative Urine Bilirubin Negative Urine Urobilinogen Normal Ur Leukocyte Esterase Negative Urine RBC 0 SEEN Urine WBC 0 SEEN Ur Squamous Epith Cells 0 SEEN Urine Bacteria 0 SEEN Urine Mucus 2+ Radiography Diagnostic Testing: Clinical Impression(s) from Imaging Studies Abdomen/Pelvis CT 01/11/24 13:58 IMPRESSION: 1. Very small nonobstructing stone in the left kidney without evidence of hydronephrosis. 2. No focal acute inflammatory process. 3. Bilateral inguinal hernias and umbilical hernia containing fat. Electronically Signed: Hans Farias MD at 14:48 EDT , Discharge Plan Triage Chief Complaint: Other, Pain/Inj ED Provider: Sohail Meadows Dx/Rx/DC Orders Clinical Impression: Acute right flank pain, Inguinal hernia Instructions: ED Flank Pain, Uncertain Cause, ED Hernia (Adult) Prescriptions: New oxycodone-acetaminophen 5-325 mg tablet 1 tab PO Q6H PRN PRN (Reason: Pain) 3 Days Qty: 12 0RF No Action melatonin 3 mg capsule 3 mg PO HS PRN (Reason: sleep) Qulipta 30 mg tablet 30 mg PO DAILY mecobalamin (vitamin B12) 1,000 mcg tablet,chewable 1,000 mcg PO DAILY magnesium oxide 400 mg (241.3 mg magnesium) tablet 400 mg PO DAILY Primary Care Provider: Adriel Potts Referrals: Adriel Potts MD [Primary Care Provider] - 3-5 Days Ben Rider MD [Med Staff - Active Staff] - 1-2 Weeks Activity Restrictions/Additional Instructions: CT scan very small nonobstructive stone in the left kidney. Does not cause any ER pain symptoms on the right side. Bilateral inguinal hernias fat-containing left greater than right. Labs and urine were negative. Take pain medication as prescribed as needed. Monitor for any rash for possible shingles. Follow-up your doctor for reevaluation of your pain. Follow-up with surgery for discussion and evaluation of your inguinal hernias. Print Language: Cymraes Disposition Disposition: Home, Self Care Discharge Date/Time: 01/11/24 17:07
[2024-01-11] MEDS: oxyCODONE 5 MG Tablet PO (16:42)
== END 2024-01-11 17:07 | disposition home or self-care (01) ==
PROVIDERS: Emergency Provider Emergency Medicine; PCP Family Medicine; Visit Provider Emergency Medicine
DX: K40.20 Bilateral inguinal hernia, without obstruction or gangrene, not specified as recurrent (principal); Z87.891 Personal history of nicotine dependence
CPT/HCPCS: 74176; 80048; 81001; 85025; 96374; 96375; 96376; 99283; A4216; J2405

== ENCOUNTER → 2024-12-09 | Outpatient (CLI) | payer OTHER, SELFPAY ==
[2024-12-09 15:49] LABS: PSA,Total - Annual Screen 0.66 ng/mL (0.02-4.00)
== END | disposition home or self-care (01) ==
LOC: MFPLAB 11:30
PROVIDERS: PCP Family Medicine; Visit Provider Family Medicine
DX: Z12.5 Encounter for screening for malignant neoplasm of prostate (principal)
CPT/HCPCS: 36415; 84153; G0103

== ENCOUNTER 2025-01-26 13:00 | Outpatient (RCR) | payer OTHER, SELFPAY ==
--- NOTE | 2024-12-17 09:18 | HP.SP.EV_ITS ---
Visit History Visit Info Date of Eval: 12/16/24 Today is Visit #: 1 Flexible Nanny: PEE History Attending Doctor: Referring Doctor: Reason for Referral: [facility] HERE Medical Diagnosis: Other diseases of larynx J38.7 Date of Onset of Diagnosis: 2021 Previous speech therapy: No Other Relevant Medical History/Diagnoses/Surgery: Patient was referred by ENT. Patient has had 11 surgeries with two being neck surgeries for C4-C5 fusion and plates for C5-C6 with anterior approach in 2007 and 2013. 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 He reported taking medication for approximately 6 months then no longer had issues. Patient reported in the last 18 months he has had EGD and esophagram at [facility] with no diagnoses given. Medications related to this diagnosis: None Smoking Status: Former smoker Diagnosis Diagnosis: Other Diseases of larynx J38.7 Pain Is pain an issue with your current prescribed condition?: No Personal Preferred language: Georgian Patient Allergies Allergies Allergies: Allergies Latex, Natural Rubber Allergy (Verified 01/22/24 14:04) Burning Sensation Subjective Voice Informal Questioner Do you scream (anger, sporting event, work, noisy envirmonment): Less than average Do you raise your voice (e.g. parenting, calling from room to room, etc.): Less than average Do you talk for long periods of time without a break (teacher, hoyt): Less than average Are you a talker: Less than average Do you clear your throat: More than average Do you cough: Average Do you sing: Less than average How often do you use the telephone: Less than average Do you do impersonations, character voices or unusual sound effects: None Intubation Was the Client intubated: Yes If yes, list date, duration, and explanation: 11 surgeries total. 2 Brain surgeries, ear surgery, 2 neck surgeries, one back, one knee, 3 hernia surgery. Intake Water (ounces): 16 Coffee (ounces): 0 Tea (ounces): 0 Soda (ounces): 64 Energy drinks (ounces): 0 Milk (ounces): 0 Juice (ounces): 0 Sports drinks (ounces): 0 Other (specify): 0 Alcoholic Beverage Intake Intake: Never Beer (ounces): 0 Wine (ounces): 0 Liquor (ounces): 0 Other Product Usage Do you use products containing menthol (if yes, list): Yes (some cough drops have menthol) Do you take Vitamin C Supplements (if yes, list amt (mg)/day: No Do you use recreational drugs (if yes, list type/amt/frequency): No Objective Voice Date of Diagnosis Previous Speech Therapy (If yes, describe): No Reference: Neuro-QoL instrument Radiation Oncology Patient Other Other Evaluation: -: Patient's history with surgeries and probably numerous intubations may be contributing to the feeling of needing to throat clear. Patient cleared his throat extremely often during the evaluation. He did so twice in the first five minutes and a total of over 12 times in less than 45 minutes. Currently, it is affecting social aspects as people are asking him "what's wrong". He stated that it began approximately 3 years ago and has progressively gotten worse over time. He reports there is no change in throat clearing due to environmental or chemical exposure nor does weather appear to affect it. He stated throat clearing is mildly increased in the morning as the only difference he sees. Patient does not demonstrate consistent awareness of throat clearing. When speaking for over 10 minutes he did not throat clear but within 30 seconds of stopping speaking he exhibited a throat clear. He stated that he is uses co ugh drops that are only somewhat effective to reduce throat clearing. Throat clearing is a vocal abuse which over time may impact his voice. No reported dysphagia, post nasal drip or current acid reflux that could be contributing to throat clearing. Plan Plan Plan: Speech therapy is recommended one time per week for 4 weeks to focus on reducing vocal abuse through awareness and training in vocal hygiene as well as alternatives to throat clearing. Recommendations Treatment Warranted: Yes Progress Prognosis: Good Frequency Frequency: 1x/Week Duration: 4 Weeks Visits in this POC: 4 Patient/Family Goal Patient/Family Goal: Patient would like to reduce throat clearing. Goals that are Established Determination:: Goals will be added/modified as deemed necessary and appropriate. Therapy will be discontinued when results of re-evaluation indicate therapy is no longer needed or lack of progress has been documented. Goal #1-5 Goal #1: Patient will recognize his own vocal abuse behaviors for 15 minutes with 80% accuracy to increase awareness of vocal abuses on 2/3 sessions. Goal #2: Patient will identify and use healthy voice alternatives (example: swallowing, taking a drink, soft throat clear,etc) to reduce throat clearing to less than 3 in 30 minutes on 2/3 sessions. Education Patient has Indicated that the Following Identified Educational Needs: None The Patient has indicated that they have no educational or learning abilities that may effect their care.: Yes Patient Instruction Patient Education: Diagnosis and Treatment Plan Person Taught: Patient Response to teaching: Verbalize Understanding
--- NOTE | 2025-01-26 17:53 | HP.SP.DC ---
ST Discharge Summary Discharged: Discharge: Armando Martin is discharged from [facility] speech therapy as of January 26, 2025, as his goals have been met. He was evaluated on 12/16/24 with a diagnosis of other diseases of larynx. He reported significant throat clearing with over 20 times in 15 minutes during the first session. At the time of discharge, it was down to 2 in 18 minutes with patient demonstrating awareness of amount of throat clearing, Patient identified and reported that taking allergy medicine has been a helpful alternative for reducing his frequency of throat clearing. Patient reported that chewing gum and using mints has been a helpful alternative to reduce throat clearing as well as swallowing when he feels the need to throat clear more often which he states has been helpful. At this time his throat clearing is significantly better than at evaluation. Patient is in agreement with discharge. Thank you for allowing me to participate in the care of this patient.
== END 2025-01-26 19:00 | disposition home or self-care (01) ==
LOC: SP 13:00
PROVIDERS: PCP Family Medicine; Referring Provider Otolaryngology; Visit Provider Otolaryngology
DX: J38.7 Other diseases of larynx (principal); R09.89 Other specified symptoms and signs involving the circulatory and respiratory systems
CPT/HCPCS: 92507; 92524; 92526